=== PATIENT | female | born 1960 | race Caucasian/White ===

== ENCOUNTER 2019-10-12 08:45 | Emergency (ER) | payer BC, SELFPAY ==
[2019-10-12 08:47] VITALS: BP 137/81; PULSE 101; RESP 20; TEMP 36.4; O2SAT 97; BMI 32.8
--- NOTE | 2019-10-12 09:19 | EKG12_ITS ---
Test Reason : SOB Blood Pressure : / mmHG Vent. Rate : 091 BPM Atrial Rate : 091 BPM P-R Int : 148 ms QRS Dur : 094 ms QT Int : 412 ms P-R-T Axes : 067 -46 112 degrees QTc Int : 506 ms Normal sinus rhythm Left anterior fascicular block Nonspecific T wave abnormality Abnormal ECG Confirmed by DEB MANCUSO, ARNOLD ([id number]), assistant editor MELISSA CONNELL ([id number]) on 10/17/2019 8:52:55 AM Referred By: CHLOE Confirmed By:ARNOLD BOYD MD
--- NOTE | 2019-10-12 09:20 | VDLE_ITS ---
Reason For Study: Pain RIGHT LEFT Acute superficial vein thrombosis is noted in CFV is compressible, spontaneous, competent, the GSV from junction to distal thigh. and demonstrates pulsatile venous flow. Extends into the deep system. Acute deep vein thrombosis is noted in the CFV and SFJ. Clot in moile with minimal flow noted. Pulsatile venous flow noted with the right CFV. FV is compressible, spontaneous, competent and demonstrates pulsatile venous flow. POP V is compressible, spontaneous, competent and demonstrates pulsatile venous flow. T/P Trunk is compressible. PTV is compressible. RT PerV is compressible. Procedure Exam performed portable in ED. A preliminary report was called and/or faxed to [facility]. Interpretation Summary Acute deep venous thrombosis right common femoral vein with mobility noted. Acute superficial thrombophlebitis right great saphenous vein from the distal thigh to the saphenofemoral junction extending into the common femoral vein. Pulsatile flow noted in the right common femoral vein suggesting possible proximal venous hypertension or obstruction Patent and compressible left common femoral vein however pulsatile venous flow also noted suggesting possible proximal venous hypertension or obstruction. Clinical correlation would be indicated Ordering Physician: Jony Mcnamara Referring Physician: James Lynne Performed By: Lorin Hawley RVT
[2019-10-12] MEDS: Ondansetron 4 MG/2 ML Vial IV (09:23)
[2019-10-12 09:35] LABS: Absolute Lymphocyte Count 3.03 X10^3/uL (0.83-4.51); Absolute Neutrophil Count 8.8 X10^3/uL (2.0-7.7); Basophil# 0.07 X10^3/uL; Basophil% 0.5 % (0-1); Eosinophil# 0.03 X10^3/uL; Eosinophils% 0.2 % (0-5); Hematocrit 47.5 % (37-47); Hemoglobin 15.5 g/dL (12.0-15.0); Lymphocyte # 3.03 X10^3/ul (4.0); Mean Corp Hgb Conc 32.6 g/dL (32-36); Mean Corpuscular Hgb 29.5 pg (27.0-32.0); Mean Corpuscular Volume 90.5 fL (81-99); Mean Platelet Vol. 12.7 fl (6.2-12.0); Monocyte# 1.14 X10^3/uL; Monocyte% 8.7 % (0-10); NRBC Flagged by Analyzer 0 % (0-5); Neutrophil # 8.82 X10^3/uL (2.7-7.7); Platelet Count 239 K/mm3 (150-450); RBC Distribution Width CV 13.3 % (11.6-14.6); RBC Distribution Width SD 43.3 fl (35.1-43.9); Red Blood Count 5.25 M/mm3 (4.2-5.4); White Blood Count 13.2 K/mm3 (4.4-11.0)
--- NOTE | 2019-10-12 09:52 | ED.DCSUM_ITS ---
- ER Visit Summary Date of Service: 10/12/19 Chief Complaint: Shortness of breath History of Present Illness: The patient is a 59 F who presents with shortness of breath that is been getting worse over the past 1 to 2 months. Patient states it is gradually gotten worse. Patient states she saw her primary care physician who diagnosed her with walking pneumonia and started her on antibiotics. Patient states she is still taking the antibiotics but does not feel any better. Patient admits to subjective fevers. Patient admits to some pain in her chest and back. Patient denies any cough. Patient denies any rhinorrhea or sore throat. Patient does admit to some nausea and vomiting. Physical Examination: Vital signs are stable. Patient is afebrile. Patient is in no acute distress. Oral mucosa is pink and moist. Neck is supple. Trachea is midline. There is no JVD. Heart was regular rate and rhythm. Lungs are diminished bilaterally. There is adequate respiratory effort. Abdomen is soft. Bowel sounds are normal. There is no tenderness. Extremities are intact. There is some mild tenderness and erythema over the medial aspect of the right thigh. There are no palpable cords noted. Pedal pulses are equal bilaterally. Cranial nerves II through XII are intact. There are no focal motor or sensory deficits. Test Results: EKG showed a normal sinus rhythm with a rate of 91. There are no acute ST or T wave changes. There is a left anterior fascicular block. There are no prior EKGs available for comparison. CBC shows a mild leukocytosis of 13.2. BUN and creatinine were slightly elevated at 23 and 1.15. Troponin was slightly elevated at 0.056. This may be related to strain from the pulmonary embolism. Venous duplex of the right lower extremity was obtained. There is a DVT noted in the common femoral vein and superficial femoral junction. CTA of the chest was obtained. There is a minimal pulmonary embolus in the right lower lobe pulmonary artery. There is also groundglass opacities in the posterior lung bases bilaterally which are concerning for COVID-19. A COVID-19 swab is pending. Emergency Department Course and Treatment: Patient was given aspirin and Zofran. Patient was started on Eliquis here. Patient was given a prescription for Eliquis. Patient had normal vital signs and was not hypoxic. I feel the patient is safe to go home. Patient was instructed to follow-up with her primary care physician in 3-5 days for her COVID results. Patient was instructed to isolate herself at home. She was instructed to finish her antibiotics as previously prescribed. Patient was instructed to return if worse in any way. Patient understood and was agreeable with the plan. All questions were answered. Disposition: Discharge home Impression: 1. Pulmonary embolism 2. DVT 3. Pneumonia This note was generated with [employer] dictation software. It may contain incorrect words, spelling, and punctuation that were not noted in review of the chart prior to signing ED Disposition - Plan for ED Patient: Disposition: Home or Assisted Living Diagnosis: Pulmonary embolism, DVT (deep venous thrombosis), Pneumonia Instructions: Pulmonary Embolism, ED DVT, ED PNEUMONITIS Adult Prescriptions: Apixaban [Eliquis] 5 mg PO BID #74 tab Prescription Printed Referrals: Davina Meredith MD [STAFF PHYSICIAN] - 3-5 Days
[2019-10-12 09:54] LABS: Anion Gap 11 (5-15); BUN 23 mg/dL (7-18); Calcium,Total 8.7 mg/dL (8.5-10.1); Chloride 105 mmol/L (98-107); Creatinine, Serum 1.15 mg/dL (0.55-1.02); EST Glomerular Filtration Rate 51 mL/min (>60); Est Glom Filt Rate - Afr Amer 62 mL/min (>60); Estimated Creatinine Clearance 43.57 ml/min; Glucose 96 mg/dL (74-106); Potassium 3.9 mmol/L (3.5-5.1); Sodium Level 136 mmol/L (136-145)
[2019-10-12] MEDS: Aspirin 81 MG TAB.CHEW 324 MG PO (09:54)
[2019-10-12 09:58] VITALS: O2SAT 97
[2019-10-12 10:00] VITALS: BP 127/96; PULSE 93; RESP 16; TEMP 36.6; O2SAT 97
--- NOTE | 2019-10-12 10:00 | RAD_ITS ---
STUDY: X-RAY CHEST REASON FOR EXAM: Female, 59 years old. Diagnosed with walking pneumonia and on antibiotics since sun day. Continues to have shortness of breath and now has headache and feels very weak TECHNIQUE: Single AP portable view of the chest. COMPARISON: None. FINDINGS: EKG electrodes are seen. The lungs are clear and expanded. There is no demonstrated pleural abnormality. There is moderate cardiac enlargement. Normal mediastinum and helene. Normal visualized pulmonary arteries. Normal visualized aortic arch and descending thoracic aorta. Normal visualized thoracic spine. Normal visualized ribs, clavicles, and shoulders. There is no demonstrated abnormality of the visualized soft tissue structures of the upper abdomen. RAD/Chest 1 View (Portable) IMPRESSION: Moderate cardiomegaly. Electronically Signed: Daniel Luz, at 10:36 EDT , Service support ,
--- NOTE | 2019-10-12 10:55 | CT_ITS ---
We are attempting to reach an attending provider to discuss findings. An addendum with communication details will be sent when the communication is complete. STUDY: CTA CHEST REASON FOR EXAM: Female, 59 years old. DYSPNEA, DX WITH PNEUMONIA ON WEDNESDAY, SOB, WEAKNESS RADIATION DOSAGE (If Supplied By Facility): CTDIvol = ( 15.43 ) mGy, DLP = ( 364.52 ) mGycm TECHNIQUE: The examination was performed with the intravenous administration of 100 mL of ISOVUE-370. Post-processing of the angiographic images was performed, with multiplanar reformation and MIP (maximum intensity projection) reconstruction. Individualized dose optimization techniques were used for this CT. COMPARISON: None. FINDINGS: Normal enhancement of the main pulmonary artery and right and left pulmonary arteries. Positive for intraluminal filling defect in the right lower lobe pulmonary artery. No other suspicious pulmonary emboli. Normal thoracic aorta and visualized great vessels. There is no demonstrated aortic dissection. Normal heart and pericardium. Normal mediastinum. Normal hilar regions. Normal visualized trachea and bronchi. The lungs are well expanded. Abnormal peripheral groundglass opacities in the posterior aspect of the lung bases are suspicious for viral pneumonia. Mild to moderate bilateral posterior pleural fluid, right more than left. Normal chest wall structures. No acute osseous abnormality. Normal visualized upper abdomen. CT/CTA Chest W/WO Contrast IMPRESSION: 1. Positive for minimal pulmonary thromboembolus in the right lower lobe pulmonary artery. 2. No CTA evidence of thoracic aortic aneurysm or dissection. 3. Abnormal peripheral groundglass opacities in the posterior lung bases are nonspecific but are worrisome for viral pneumonia including Covid-19. 4. Mild to moderate bilateral posterior pleural fluid, right more than left. Electronically Signed: Shon Valadez MD at 12:07 EDT , Service support ,
[2019-10-12] MEDS: 0.9% Normal Saline 1,000 ML 1000 ML IV (11:20)
[2019-10-12 11:24] VITALS: BP 123/91; PULSE 91; RESP 18; TEMP 36.4; O2SAT 95
[2019-10-12] MEDS: APIXABAN 5 MG TABLET 10 MG PO (13:04)
[2019-10-12 13:05] VITALS: BP 121/93; PULSE 100; PULSE 101; RESP 18; RESP 19; RESP 20; TEMP 36.5; O2SAT 96; O2SAT 97
== END 2019-10-12 13:16 | disposition home or self-care (01) ==
PROVIDERS: Emergency Provider Emergency Medicine
DX: I26.99 Other pulmonary embolism without acute cor pulmonale (principal); I82.409 Acute embolism and thrombosis of unspecified deep veins of unspecified lower extremity; J18.9 Pneumonia, unspecified organism
CPT/HCPCS: 71045; 71275; 80048; 84484; 85025; 87635; 93005; 93971; 94799; 96374; 99285; J7030; Q9967; J2405; U0003

== ENCOUNTER → 2019-10-18 14:28 | Outpatient (CLI) | payer BC, SELFPAY ==
[2019-10-12 08:47] VITALS: BMI 32.8
[2019-10-18 17:39] LABS: Absolute Lymphocyte Count 2.17 X10^3/uL (0.83-4.51); Absolute Neutrophil Count 7.9 X10^3/uL (2.0-7.7); Basophil# 0.07 X10^3/uL; Basophil% 0.6 % (0-1); Eosinophil# 0.09 X10^3/uL; Eosinophils% 0.8 % (0-5); Hematocrit 44.7 % (37-47); Hemoglobin 13.9 g/dL (12.0-15.0); Lymphocyte # 2.17 X10^3/ul (4.0); Mean Corp Hgb Conc 31.1 g/dL (32-36); Mean Corpuscular Hgb 29.4 pg (27.0-32.0); Mean Corpuscular Volume 94.7 fL (81-99); Mean Platelet Vol. 13.6 fl (6.2-12.0); Monocyte# 1.19 X10^3/uL; Monocyte% 10.4 % (0-10); NRBC Flagged by Analyzer 0 % (0-5); Neutrophil % 68.9 % (47-70); Platelet Count 202 K/mm3 (150-450); RBC Distribution Width CV 14.2 % (11.6-14.6); RBC Distribution Width SD 48.6 fl (35.1-43.9); Red Blood Count 4.72 M/mm3 (4.2-5.4); White Blood Count 11.5 K/mm3 (4.4-11.0)
[2019-10-18 18:33] LABS: ALB/GLOB Ratio 0.9 RATIO (0.9-2.4); AST(SGOT) 31 U/L (15-37); Alanine Aminotransfer ALT/SGPT 62 U/L (13-56); Alkaline Phosphatase 74 U/L (45-117); Anion Gap 9 (5-15); BUN 25 mg/dL (7-18); BUN/Creat Ratio 26.8 RATIO (10-20); Calcium,Total 8.5 mg/dL (8.5-10.1); Chloride 107 mmol/L (98-107); Creatinine, Serum 0.93 mg/dL (0.55-1.02); EST Glomerular Filtration Rate 65 mL/min (>60); Est Glom Filt Rate - Afr Amer 79 mL/min (>60); Globulin 3.2 g/dL (2.2-4.2); Glucose 125 mg/dL (74-106); Protein, Total 6.2 g/dL (6.4-8.2); Sodium Level 142 mmol/L (136-145)
== END ==
PROVIDERS: PCP Family Medicine; Referring Provider Family Medicine; Visit Provider Family Medicine
DX: I50.9 Heart failure, unspecified (principal); R93.89 Abnormal findings on diagnostic imaging of other specified body structures; I42.9 Cardiomyopathy, unspecified
CPT/HCPCS: 36415; 80053; 85025; 87635; U0003

== ENCOUNTER → 2019-10-19 14:40 | Outpatient (CLI) | payer BC, SELFPAY ==
[2019-10-12 08:47] VITALS: BMI 32.8
--- NOTE | 2019-10-19 14:47 | ECHOD_ITS ---
Reason For Study: CHF Procedure This was a 2D Doppler, Color Flow transthoracic echocardiogram. Exam performed in department. Spoke with Dr. Garcia & Dr. Daniels of ED. Took patient to ED due to her symptoms and EF. Left Ventricle Severely dilated left ventricle. Severe global left ventricular systolic dysfunction. The estimated ejection fraction is 10 %. There is evidence of diastolic dysfunction. Right Ventricle Mildly dilated right ventricle. Mild global right ventricular systolic dysfunction. Atria The left atrium is mildly enlarged. The right atrium is mildly enlarged. No doppler evidence for ASD. Mitral Valve There is no mitral annular calcification. Mild diffuse mitral valve thickening. Mild papillary muscle dysfunction of the mitral valve. Moderate (2+) mitral valve insufficiency. Tricuspid Valve Normal tricuspid valve. Moderately severe (3+) tricuspid valve insufficiency. Right ventricular systolic pressure estimated to be 35 mmHg. Aortic Valve Trisinus/trileaflet aortic valve. Mild diffuse aortic valve thickening. Trivial aortic valve insufficiency. Pulmonic Valve The pulmonic valve is not well visualized. Mild-Moderate (1-2+) pulmonic valve insufficiency. Great Vessels Normal sized aortic root. Pericardium/Pleural Trivial pericardial effusion. There are no echocardiographic indications of cardiac tamponade. MMode/2D Measurements & Calculations LVIDd: 6.7 cm IVSd: 0.98 cm Ao root diam: 2.8 cm LVIDs: 6.4 cm LVPWd: 0.86 cm RVDd: 4.4 cm FS: 4.5 % LAV(MOD-bp): 80.5 ml LA A4 area: 22.9 cm2 LA dimension(2D): 4.4 cm LAV(MOD-bp) Indexed: 44.6 ml/m2 LAV(MOD-sp2): 73.3 ml LAV(MOD-sp4): 75.6 ml RA A4 area: 23.9 cm2 Doppler Measurements & Calculations MV E max mario: 75.5 cm/sec Lat Peak E' Mario: 5.1 cm/sec Med Peak E' Mario: 5.2 cm/sec MV A max mario: 28.0 cm/sec E/E' lat: 14.9 E/E' med: 14.5 MV E/A: 2.7 Ao V2 max: 51.1 cm/sec LV V1 max: 41.8 cm/sec PA V2 max: 52.0 cm/sec Ao max P.0 mmHg LV V1 max P.70 mmHg TR max mario: 261.6 cm/sec TR max P.4 mmHg Interpretation Summary Severely dilated left ventricle. Severe global left ventricular systolic dysfunction. The estimated ejection fraction is 10 %. Mildly dilated right ventricle. Mild global right ventricular systolic dysfunction. The left atrium is mildly enlarged. The right atrium is mildly enlarged. Mild diffuse mitral valve thickening. Mild papillary muscle dysfunction of the mitral valve. Moderate (2+) mitral valve insufficiency. Moderately severe (3+) tricuspid valve insufficiency. Mild diffuse aortic valve thickening. Trivial aortic valve insufficiency. Mild-Moderate (1-2+) pulmonic valve insufficiency. Trivial pericardial effusion. There are no echocardiographic indications of cardiac tamponade. Right ventricular systolic pressure estimated to be 35 mmHg. There is evidence of diastolic dysfunction. Ordering Physician: Davina Meredith Referring Physician: Davina Meredith Performed By: Brittanie Oliver RDCS, RVT
== END ==
PROVIDERS: PCP Family Medicine; Referring Provider Family Medicine; Visit Provider Family Medicine
DX: I50.9 Heart failure, unspecified (principal); R93.89 Abnormal findings on diagnostic imaging of other specified body structures
CPT/HCPCS: 93306

== ENCOUNTER 2019-10-19 16:19 | Emergency (ER) | payer BC, SELFPAY ==
[2019-10-19 16:21] VITALS: BP 132/93; PULSE 96; RESP 20; TEMP 36.9; O2SAT 96; BMI 30.4
--- NOTE | 2019-10-19 16:39 | EKG12_ITS ---
Test Reason : Blood Pressure : / mmHG Vent. Rate : 091 BPM Atrial Rate : 091 BPM P-R Int : 162 ms QRS Dur : 096 ms QT Int : 396 ms P-R-T Axes : 076 -46 124 degrees QTc Int : 487 ms Normal sinus rhythm Possible Left atrial enlargement Left anterior fascicular block Nonspecific T wave abnormality Prolonged QT Abnormal ECG Confirmed by LEYLA MANCUSO, GABY ([id number]), non linear editor MELISSA CONNELL ([id number]) on 10/23/2019 9:38:18 AM Referred By: LISA Confirmed By:FELICITA MAYER MD
--- NOTE | 2019-10-19 16:39 | ED.DCSUM_ITS ---
History of Present Illness Chief Complaint: Shortness of Breath Informant: Patient Onset: Weeks Current Severity: Mild Maximum Severity: Moderate Narrative: Patient presents secondary to abnormal echocardiogram. Patient was recently seen with increasing shortness of breath, cough, fevers. She had infiltrate pattern noted on chest x-ray along with a DVT and small PE. Her Covid test was negative. She was started on Eliquis. Patient states that her family doctor started her on a water pill yesterday. She is starting to notice some improvement in her breathing with diuresis. She presented to the hospital today for an outpatient echocardiogram and was brought down from the lab secondary to abnormal results. - Past Medical History (1) DVT (deep venous thrombosis) Status: Chronic (2) Pulmonary embolism Status: Chronic Past Medical History - Allergies and Home Meds Allergies/Adverse Reactions: Allergies No Known Allergies Allergy (Verified 10/19/19 16:23) Primary Care Physician: Davina Meredith MD [Primary Care Provider] - Prior records reviewed: Yes Lives: Spouse/ Significant Other Smoking Status: Never smoker Review of Systems General: Reports: Fever - Resolved times several days Eyes: Denies: Visual changes - bilaterally ENT: Denies: Bilateral ear pain Cardiovascular: Denies: Chest pain Respiratory: Reports: Dyspnea, Cough - Improved Gastrointestinal: Denies: Abdominal pain, Nausea, Vomiting, Diarrhea Musculoskeletal: Reports: Swelling Skin: Denies: Rash Neurological: Denies: Headache Hematologic: Denies: Easy bruising, Easy bleeding Allergy: Denies: Uticaria Physical Exam Vital Signs/Narrative: Vital Signs Temp Pulse Resp BP Pulse Ox 10/19/19 16:21 98.4 F 96 20 H 132/93 H 96 Inital Vital Signs reviewed: Yes General: Well nourished, Well developed Head: Normocephalic ENT: Moist mucous membranes Neck: Supple Cardiovascular: Regular rate, Regular rhythm Respiratory: No distress, - - Scant crackles left base Abdomen: Soft, Nontender Extremities: Edema - 2-3+ bilateral lower extremity edema. Skin: Normal color Neurological: Alert, Oriented x3 Psychological: Normal affect Diagnostic/Tx/Re-eval Impressions Chest X-Ray 10/19/19 17:40 IMPRESSION: Stable cardiomegaly without acute pulmonary disease. Electronically Signed: Jason Yusuf DO at 18:06 EDT Tel [phone], Service support , 10/19/19 17:40 Chest 1 View (Portable) [RAD] Stat Laboratory Results 10/19/19 10/19/19 10/19/19 16:54 16:54 16:54 WBC 11.4 H RBC 4.89 Hgb 14.3 Hct 44.9 MCV 91.8 MCH 29.2 MCHC 31.8 L RDW Std Deviation 46.4 H RDW Coeff of Neri 13.9 Plt Count 195 MPV 13.0 H Immature Gran % (Auto) 0.400 Neut % (Auto) 61.4 Lymph % (Auto) 24.6 Rapides % (Auto) 11.7 H Eos % (Auto) 1.4 Baso % (Auto) 0.5 Absolute Neuts (auto) 7.0 Absolute Lymphs (auto) 2.79 Nucleated RBC % 0 Sodium 146 H Potassium 3.2 L Chloride 109 H Carbon Dioxide 31.0 Anion Gap 6 BUN 24 H Creatinine 1.04 H Estim Creat Clear Calc 48.18 Est GFR (MDRD) Af Amer 70 Est GFR (MDRD) Non-Af 58 L BUN/Creatinine Ratio 23.1 H Glucose 96 Calcium 8.4 L Troponin I 0.057 H B-Natriuretic Peptide 1707.1 H - Medical Decision Making Patient's vitals remained stable during her ED stay. I spoke with Dr. Hays who reviewed her echocardiogram images. He states that she has moderate MR and TR with a trivial pericardial effusion. He states her ejection fraction would be at best 10%. On review of her recent records the DVT she had in her leg was mobile and in the right common femoral vein. With the entire picture put together he felt the patient should be transferred to either [facility] or [facility]. After speaking with patient and at bedside she did agree to transfer to [facility]. We are awaiting bed assignment at this time. ED Disposition - Plan for ED Patient: Disposition: [facility] Diagnosis: Heart failure Referrals: Davina Meredith MD [Primary Care Provider] -
[2019-10-19 17:01] VITALS: O2SAT 96
[2019-10-19 17:21] LABS: Anion Gap 6 (5-15); BUN 24 mg/dL (7-18); BUN/Creat Ratio 23.1 RATIO (10-20); Calcium,Total 8.4 mg/dL (8.5-10.1); Chloride 109 mmol/L (98-107); Creatinine, Serum 1.04 mg/dL (0.55-1.02); EST Glomerular Filtration Rate 58 mL/min (>60); Est Glom Filt Rate - Afr Amer 70 mL/min (>60); Estimated Creatinine Clearance 48.18 ml/min; Glucose 96 mg/dL (74-106); Potassium 3.2 mmol/L (3.5-5.1); Sodium Level 146 mmol/L (136-145)
[2019-10-19 17:27] LABS: Absolute Lymphocyte Count 2.79 X10^3/uL (0.83-4.51); Basophil# 0.06 X10^3/uL; Basophil% 0.5 % (0-1); Eosinophil# 0.16 X10^3/uL; Eosinophils% 1.4 % (0-5); Hematocrit 44.9 % (37-47); Hemoglobin 14.3 g/dL (12.0-15.0); Lymphocyte # 2.79 X10^3/ul (4.0); Lymphocyte % 24.6 % (19-41); Mean Corp Hgb Conc 31.8 g/dL (32-36); Mean Corpuscular Hgb 29.2 pg (27.0-32.0); Mean Corpuscular Volume 91.8 fL (81-99); Monocyte# 1.33 X10^3/uL; Monocyte% 11.7 % (0-10); NRBC Flagged by Analyzer 0 % (0-5); Neutrophil # 6.96 X10^3/uL (2.7-7.7); Neutrophil % 61.4 % (47-70); Platelet Count 195 K/mm3 (150-450); RBC Distribution Width CV 13.9 % (11.6-14.6); RBC Distribution Width SD 46.4 fl (35.1-43.9); Red Blood Count 4.89 M/mm3 (4.2-5.4); White Blood Count 11.4 K/mm3 (4.4-11.0)
--- NOTE | 2019-10-19 17:40 | RAD_ITS ---
STUDY: X-RAY CHEST REASON FOR EXAM: Female, 59 years old. Increased shortness of breath. Echocardiogram today that showed large pericardial effusion. TECHNIQUE: Single AP portable view of the chest. COMPARISON: CTA of the chest, 10/12/2019. Chest, 10/12/2019. FINDINGS: The lungs are clear and expanded. There is no demonstrated pleural abnormality. The heart is moderately enlarged but unchanged from prior study. No large pericardial effusion is seen on the recent chest CT. Normal mediastinum and helene. Normal visualized pulmonary arteries. Normal visualized aortic arch and descending thoracic aorta. The thoracic spine is obscured by the mediastinum. Normal visualized ribs, clavicles, and shoulders. There is no demonstrated abnormality of the visualized soft tissue structures of the upper abdomen. RAD/Chest 1 View (Portable) IMPRESSION: Stable cardiomegaly without acute pulmonary disease. Electronically Signed: Jason Yusuf DO at 18:06 EDT Tel [phone], Service support ,
[2019-10-19 18:19] VITALS: BP 118/83; PULSE 91; RESP 21; O2SAT 98
[2019-10-19 20:51] VITALS: BP 133/102; PULSE 93; RESP 18; O2SAT 96
[2019-10-19 22:59] VITALS: BP 108/90; PULSE 93; RESP 20; O2SAT 98
[2019-10-19 23:01] VITALS: BP 108/74; PULSE 95; RESP 15; O2SAT 95
[2019-10-20 00:37] VITALS: BP 114/87; PULSE 97; RESP 22; O2SAT 95
== END 2019-10-20 00:43 | disposition short-term general hospital (02) ==
PROVIDERS: Emergency Provider Emergency Medicine; PCP Family Medicine
DX: I50.9 Heart failure, unspecified (principal); Z86.711 Personal history of pulmonary embolism; Z79.01 Long term (current) use of anticoagulants; Z86.718 Personal history of other venous thrombosis and embolism
CPT/HCPCS: 71045; 80048; 83880; 84484; 85025; 93005; 99285; A4216

== ENCOUNTER → 2019-10-27 11:09 | Outpatient (CLI) | payer BC, SELFPAY ==
[2019-10-19 16:21] VITALS: BMI 30.4
[2019-10-27 13:09] LABS: Anion Gap 6 (5-15); BUN 27 mg/dL (7-18); BUN/Creat Ratio 21.8 RATIO (10-20); Calcium,Total 8.4 mg/dL (8.5-10.1); Chloride 103 mmol/L (98-107); Creatinine, Serum 1.24 mg/dL (0.55-1.02); EST Glomerular Filtration Rate 47 mL/min (>60); Est Glom Filt Rate - Afr Amer 57 mL/min (>60); Glucose 86 mg/dL (74-106); Potassium 4.3 mmol/L (3.5-5.1); Sodium Level 137 mmol/L (136-145)
== END ==
PROVIDERS: PCP Family Medicine; Referring Provider Family Medicine
DX: I50.9 Heart failure, unspecified (principal)
CPT/HCPCS: 36415; 80048

== ENCOUNTER → 2020-02-12 14:45 | Outpatient (CLI) | payer BC, SELFPAY ==
[2019-11-08 13:02] VITALS: BMI 30.2
--- NOTE | 2020-02-12 14:46 | ECHOD_ITS ---
Reason For Study: CHF Procedure This was a 2D Doppler, Color Flow transthoracic echocardiogram. Exam performed in department. Left Ventricle Normal LV size. The estimated ejection fraction is 25 %. There is severe global hypokinesis of the left ventricle. Right Ventricle Normal RV size. Normal systolic function. Atria Normal left atrium. Normal right atrium. Mitral Valve Normal mitral valve. Tricuspid Valve Normal tricuspid valve. Aortic Valve Normal aortic valve. Trisinus/trileaflet aortic valve. Pulmonic Valve Normal pulmonic valve. Great Vessels Normal aortic root. The pulmonary artery is normal size. Pericardium/Pleural No pericardial effusion. MMode/2D Measurements & Calculations LVIDd: 5.7 cm IVSd: 1.00 cm Ao root diam: 3.2 cm LVIDs: 4.9 cm LVPWd: 1.00 cm LA dimension: 3.8 cm RVDd: 3.3 cm FS: 14.8 % LAV(MOD-bp): 43.6 ml LVAd ap4: 35.5 cm2 SV(MOD-sp4): 40.8 ml LAV(MOD-bp) Indexed: 24.4 ml/m2 EDV(MOD-sp4): 123.0 ml LAV(MOD-sp2): 34.6 ml EDV(sp4-el): 126.6 ml LAV(MOD-sp4): 49.5 ml LVAs ap4: 27.7 cm2 ESV(MOD-sp4): 82.3 ml ESV(sp4-el): 85.1 ml EF(MOD-sp4): 33.1 % EF(sp4-el): 32.7 % SV(sp4-el): 41.4 ml LA A4 area: 17.1 cm2 RA A4 area: 11.9 cm2 Time Measurements MV dec time: 0.21 sec Doppler Measurements & Calculations MV E max mario: 54.0 cm/sec Lat Peak E' Mario: 4.4 cm/sec Med Peak E' Mario: 6.7 cm/sec MV A max mario: 75.9 cm/sec E/E' lat: 12.3 E/E' med: 8.0 MV E/A: 0.71 MV V2 max: 76.0 cm/sec MV P1/2t max mario: 52.8 cm/sec Ao V2 max: 109.5 cm/sec MV max P.3 mmHg MV P1/2t: 83.2 msec Ao max P.8 mmHg MV V2 mean: 37.9 cm/sec MV mean P.69 mmHg MV dec slope: 186.0 cm/sec2 MV V2 VTI: 17.4 cm MVA(P1/2t): 2.6 cm2 LV V1 max: 89.5 cm/sec PA V2 max: 108.8 cm/sec TR max mario: 277.7 cm/sec LV V1 max P.2 mmHg TR max P.8 mmHg Interpretation Summary Normal LV size. The estimated ejection fraction is 25 %. There is severe global hypokinesis of the left ventricle. Compared to previous study, the left ventricular systolic function has improved.. Ordering Physician: Esteban Salgado Referring Physician: Davina Meredith M.D. Performed By: Edgar Seo RCS
== END ==
PROVIDERS: PCP Family Medicine; Referring Provider Internal Medicine Cardiovascular Disease; Visit Provider Internal Medicine Cardiovascular Disease
DX: I42.8 Other cardiomyopathies (principal); I50.22 Chronic systolic (congestive) heart failure
CPT/HCPCS: 93306

== ENCOUNTER → 2020-03-12 12:18 | Outpatient (CLI) | payer BC, SELFPAY ==
[2020-02-16 13:07] VITALS: BMI 28.9
[2020-03-12 15:04] LABS: Absolute Neutrophil Count 3.9 X10^3/uL (2.0-7.7); Basophil# 0.04 X10^3/uL; Basophil% 0.6 % (0-1); Eosinophil# 0.13 X10^3/uL; Hematocrit 44.2 % (37-47); Hemoglobin 13.7 g/dL (12.0-15.0); Lymphocyte % 29.3 % (19-41); Mean Corpuscular Hgb 29.7 pg (27.0-32.0); Mean Corpuscular Volume 95.7 fL (81-99); Mean Platelet Vol. 12.2 fl (6.2-12.0); Monocyte# 0.49 X10^3/uL; Monocyte% 7.6 % (0-10); NRBC Flagged by Analyzer 0 % (0-5); Platelet Count 213 K/mm3 (150-450); RBC Distribution Width CV 13.1 % (11.6-14.6); RBC Distribution Width SD 45.7 fl (35.1-43.9); Red Blood Count 4.62 M/mm3 (4.2-5.4); White Blood Count 6.5 K/mm3 (4.4-11.0)
[2020-03-12 15:18] LABS: ALB/GLOB Ratio 1.1 RATIO (0.9-2.4); AST(SGOT) 17 U/L (15-37); Alanine Aminotransfer ALT/SGPT 31 U/L (13-56); Albumin, Serum 3.9 g/dL (3.2-5.0); Alkaline Phosphatase 74 U/L (45-117); Anion Gap 5 (5-15); BUN 19 mg/dL (7-18); BUN/Creat Ratio 19.4 RATIO (10-20); Calcium,Total 8.7 mg/dL (8.5-10.1); Chloride 105 mmol/L (98-107); Creatinine, Serum 0.98 mg/dL (0.55-1.02); EST Glomerular Filtration Rate 62 mL/min (>60); Est Glom Filt Rate - Afr Amer 75 mL/min (>60); Globulin 3.7 g/dL (2.2-4.2); Glucose 90 mg/dL (74-106); Potassium 3.9 mmol/L (3.5-5.1); Protein, Total 7.6 g/dL (6.4-8.2); Sodium Level 140 mmol/L (136-145)
== END ==
PROVIDERS: PCP Family Medicine; Visit Provider Family Medicine
DX: I50.9 Heart failure, unspecified (principal)
CPT/HCPCS: 80053; 85025

== ENCOUNTER → 2020-04-26 14:40 | Outpatient (CLI) | payer BC, SELFPAY ==
[2020-02-16 13:07] VITALS: BMI 28.9
--- NOTE | 2020-04-26 14:48 | ECHOCS_ITS ---
Reason For Study: Dyspnea/SOB Procedure This was a 2D Doppler, Color Flow transthoracic echocardiogram. Contrast injection was performed. Exam performed in department. Left Ventricle Normal LV size. The estimated ejection fraction is 37 %. Stage 1 diastolic dysfunction. Right Ventricle Normal RV size. Normal systolic function. Atria Normal left atrium. Normal right atrium. Bubble contrast study negative for right to left interatrial shunt. Mitral Valve Normal mitral valve. Trivial mitral valve insufficiency. Tricuspid Valve Normal tricuspid valve. Mild (1+) tricuspid valve insufficiency. Pulmonary artery systolic pressure is 35 mmHg. Aortic Valve Normal aortic valve. Trisinus/trileaflet aortic valve. Pulmonic Valve Normal pulmonic valve. Great Vessels Normal aortic root. The pulmonary artery is normal size. Normal inferior vena cava. Pericardium/Pleural No pericardial effusion. Medication Performed a rapid injection of agitated mix of 9 cc saline and 1cc air to assess for atrial septal defect. Diluted definity 4ml given slow IV push to enhance endocardial definition. MMode/2D Measurements & Calculations LVIDd: 5.7 cm IVSd: 0.73 cm Ao root diam: 2.9 cm LVIDs: 4.7 cm LVPWd: 0.63 cm RVDd: 3.8 cm FS: 16.7 % LAV(MOD-bp): 37.6 ml LVAd ap4: 35.4 cm2 SV(MOD-sp4): 50.0 ml LAV(MOD-bp) Indexed: 21.0 ml/m2 EDV(MOD-sp4): 141.7 ml LAV(MOD-sp2): 33.0 ml EDV(sp4-el): 148.9 ml LAV(MOD-sp4): 38.9 ml LVAs ap4: 26.5 cm2 ESV(MOD-sp4): 91.7 ml ESV(sp4-el): 94.4 ml EF(MOD-sp4): 35.3 % EF(sp4-el): 36.6 % SV(sp4-el): 54.5 ml LA A4 area: 13.7 cm2 LA dimension(2D): 3.7 cm RA A4 area: 13.0 cm2 Doppler Measurements & Calculations MV E max mario: 52.5 cm/sec Lat Peak E' Mario: 2.8 cm/sec Med Peak E' Mario: 4.4 cm/sec MV A max mario: 71.7 cm/sec E/E' lat: 18.9 E/E' med: 12.0 MV E/A: 0.73 Ao V2 max: 108.7 cm/sec LV V1 max: 73.2 cm/sec PA V2 max: 104.0 cm/sec Ao max P.7 mmHg LV V1 max P.1 mmHg Ao V2 mean: 80.0 cm/sec Ao mean P.7 mmHg Ao V2 VTI: 21.9 cm PI end-d mario: 116.5 cm/sec TR max mario: 284.1 cm/sec TR max P.3 mmHg Interpretation Summary Normal LV size. The estimated ejection fraction is 37 %. Stage 1 diastolic dysfunction. Pulmonary artery systolic pressure is 35 mmHg. Contrast injection was performed. Compared to previous study, the left ventricular systolic function has improved.. Ordering Physician: Esteban Salgado Referring Physician: Davina Meredith Performed By: Anna Mccracken, ADRIANNA, RVT
== END ==
PROVIDERS: PCP Family Medicine; Referring Provider Internal Medicine Cardiovascular Disease; Visit Provider Internal Medicine Cardiovascular Disease
DX: I50.22 Chronic systolic (congestive) heart failure (principal); I42.8 Other cardiomyopathies; R06.00 Dyspnea, unspecified; R06.02 Shortness of breath
CPT/HCPCS: 93306; Q9957; A4216; C8929

== ENCOUNTER → 2020-07-10 16:23 | Outpatient (CLI) | payer BC, SELFPAY ==
[2020-05-22 16:15] VITALS: BMI 29.5
[2020-07-10 18:03] LABS: Absolute Neutrophil Count 3.3 X10^3/uL (2.0-7.7); Basophil# 0.04 X10^3/uL; Basophil% 0.7 % (0-1); Eosinophil# 0.15 X10^3/uL; Eosinophils% 2.4 % (0-5); Hematocrit 42.7 % (37-47); Hemoglobin 13.1 g/dL (12.0-15.0); Lymphocyte % 32.5 % (19-41); Mean Corp Hgb Conc 30.7 g/dL (32-36); Mean Corpuscular Hgb 29.1 pg (27.0-32.0); Mean Corpuscular Volume 94.9 fL (81-99); Mean Platelet Vol. 12.1 fl (6.2-12.0); Monocyte# 0.61 X10^3/uL; Monocyte% 9.9 % (0-10); NRBC Flagged by Analyzer 0 % (0-5); Neutrophil # 3.33 X10^3/uL (2.7-7.7); Neutrophil % 54.2 % (47-70); Platelet Count 192 K/mm3 (150-450); RBC Distribution Width CV 12.7 % (11.6-14.6); RBC Distribution Width SD 44.7 fl (35.1-43.9); White Blood Count 6.2 K/mm3 (4.4-11.0)
[2020-07-10 18:29] LABS: BUN 18 mg/dL (7-18); Creatinine, Serum 0.87 mg/dL (0.55-1.02); Glucose 82 mg/dL (74-106)
[2020-07-10 18:30] LABS: ALB/GLOB Ratio 1.1 RATIO (0.9-2.4); AST(SGOT) 13 U/L (15-37); Alanine Aminotransfer ALT/SGPT 25 U/L (13-56); Albumin, Serum 3.8 g/dL (3.2-5.0); Alkaline Phosphatase 76 U/L (45-117); Anion Gap 4 (5-15); BUN/Creat Ratio 20.7 RATIO (10-20); Chloride 106 mmol/L (98-107); EST Glomerular Filtration Rate 71 mL/min (>60); Est Glom Filt Rate - Afr Amer 85 mL/min (>60); Globulin 3.6 g/dL (2.2-4.2); Potassium 4.1 mmol/L (3.5-5.1); Protein, Total 7.4 g/dL (6.4-8.2); Sodium Level 140 mmol/L (136-145); Thyroid Stim Hormone (TSH) 2.76 uIU/mL (0.358-3.74)
== END ==
PROVIDERS: PCP Family Medicine; Referring Provider Family Medicine; Visit Provider Family Medicine
DX: I50.9 Heart failure, unspecified (principal)
CPT/HCPCS: 36415; 80053; 84443; 85025

== ENCOUNTER → 2020-09-27 13:41 | Outpatient (CLI) | payer BC, SELFPAY ==
[2020-05-22 16:15] VITALS: BMI 29.5
[2020-09-17 16:00] VITALS: BMI 29.9
--- NOTE | 2020-09-27 14:00 | ECHOD_ITS ---
Procedure This was a 2D Doppler, Color Flow transthoracic echocardiogram. Exam performed in department. Left Ventricle Normal LV size. The estimated ejection fraction is 45 %. Stage 1 diastolic dysfunction. There is mild global hypokinesis of the left ventricle. Right Ventricle Normal RV size. Normal systolic function. Atria Normal left atrium. Normal right atrium. Mitral Valve Normal mitral valve. Tricuspid Valve Normal tricuspid valve. Mild tricuspid valve insufficiency. Aortic Valve Normal aortic valve. Trisinus/trileaflet aortic valve. Pulmonic Valve The pulmonic valve is not well visualized. Great Vessels Normal aortic root. Pericardium/Pleural No pericardial effusion. MMode/2D Measurements & Calculations LVIDd: 5.7 cm IVSd: 0.98 cm Ao root diam: 2.9 cm LVIDs: 4.4 cm LVPWd: 1.0 cm RVDd: 2.8 cm FS: 23.3 % LAV(MOD-bp): 28.4 ml LVAd ap4: 35.9 cm2 LVAd ap2: 31.3 cm2 LAV(MOD-bp) Indexed: 15.9 ml/m2 LVLd ap4: 8.1 cm LVLd ap2: 6.9 cm LAV(MOD-sp2): 29.9 ml EDV(MOD-sp4): 131.4 ml EDV(MOD-sp2): 119.9 ml LAV(MOD-sp4): 26.4 ml EDV(sp4-el): 135.7 ml EDV(sp2-el): 119.9 ml LVAs ap4: 26.2 cm2 LVAs ap2: 21.7 cm2 LVLs ap4: 6.9 cm LVLs ap2: 5.9 cm ESV(MOD-sp4): 82.5 ml ESV(MOD-sp2): 68.9 ml ESV(sp4-el): 84.3 ml ESV(sp2-el): 67.7 ml EF(MOD-sp4): 37.2 % EF(MOD-sp2): 42.5 % EF(sp4-el): 37.9 % SV(MOD-sp4): 48.9 ml SV(MOD-sp2): 50.9 ml SV(sp4-el): 51.4 ml LA dimension(2D): 3.7 cm LA A4 area: 11.4 cm2 RA A4 area: 12.6 cm2 Doppler Measurements & Calculations MV E max mario: 45.5 cm/sec Lat Peak E' Mario: 5.0 cm/sec Med Peak E' Mario: 6.1 cm/sec MV A max mario: 63.1 cm/sec E/E' lat: 9.2 E/E' med: 7.5 MV E/A: 0.72 Ao V2 max: 94.0 cm/sec LV V1 max: 62.5 cm/sec PA V2 max: 92.2 cm/sec Ao max P.5 mmHg LV V1 max P.6 mmHg PI dec slope: 115.0 cm/sec2 TR max mario: 246.4 cm/sec TR max P.3 mmHg ECHO/Echo Complete Interpretation Summary Normal LV size. The estimated ejection fraction is 45 %. There is mild global hypokinesis of the left ventricle. Mild tricuspid valve insufficiency. Stage 1 diastolic dysfunction. Compared to previous study, the left ventricular systolic function has improved .. Ordering Physician: Esteban Salgado Referring Physician: Davina Meredith Performed By: Brittanie Oliver, ADRIANNA, RVT
== END ==
PROVIDERS: PCP Family Medicine; Referring Provider Internal Medicine Cardiovascular Disease; Visit Provider Internal Medicine Cardiovascular Disease
DX: R06.00 Dyspnea, unspecified (principal); I42.8 Other cardiomyopathies; I50.22 Chronic systolic (congestive) heart failure; I26.99 Other pulmonary embolism without acute cor pulmonale
CPT/HCPCS: 93306

== ENCOUNTER → 2021-02-11 16:46 | Outpatient (CLI) | payer BC, SELFPAY ==
[2021-02-11 18:45] LABS: Anion Gap 6 (5-15); BUN 23 mg/dL (7-18); BUN/Creat Ratio 23.4 RATIO (10-20); Chloride 104 mmol/L (98-107); Creatinine, Serum 0.98 mg/dL (0.55-1.02); EST Glomerular Filtration Rate 61 mL/min (>60); Est Glom Filt Rate - Afr Amer 74 mL/min (>60); Glucose 79 mg/dL (74-106); Potassium 3.7 mmol/L (3.5-5.1); Sodium Level 139 mmol/L (136-145)
== END ==
PROVIDERS: PCP Family Medicine; Referring Provider Family Medicine; Visit Provider Family Medicine
DX: I50.9 Heart failure, unspecified (principal)
CPT/HCPCS: 36415; 80048

== ENCOUNTER 2021-02-16 12:10 | Emergency (ER) | payer BC, SELFPAY ==
[2021-02-16 12:11] VITALS: BP 88/62; PULSE 94; RESP 24; TEMP 36.3; O2SAT 100; BMI 29.2
--- NOTE | 2021-02-16 13:43 | EDS_ITS ---
HPI History of Present Illness Chief Complaint: Shortness of Breath Informant: patient Onset/Context/Timing Onset: Days Context: Gradual Onset Current Severity: Mild Maximum Severity: Mild Narrative Narrative: Patient presents secondary to congestion, sore throat, fever, shortness of breath. She states she initially got sick on Thanksgiving. She followed up with her PCP last week and they felt she likely had a sinus infection. She was started on amoxicillin. Patient presents today stating that she is not getting any better. She has not been tested for Covid. [facility] Medical History (Updated 02/16/21 @ 15:[address] Hue Rodriguez MD) Chronic systolic (congestive) heart failure Deep vein thrombosis of right lower limb (10/12/19) IBS (irritable bowel syndrome) Non-ischemic cardiomyopathy Obesity Pulmonary embolism (10/12/19) Right ventricular dilation Right ventricular systolic dysfunction Home Medications carvedilol 25 mg tablet 25 mg PO BID #180 tab 05/22/20 [Rx Last Taken Unknown] spironolactone 25 mg tablet 12.5 mg PO DAILY #45 tab 05/22/20 [Rx Last Taken Unknown] furosemide 40 mg tablet 40 mg PO BID #180 tab 09/30/20 [Rx Last Taken Unknown] nabumetone 750 mg tablet 750 mg PO BID #180 tab 10/09/20 [Rx Last Taken Unknown] dexamethasone [Decadron] 6 mg PO DAILY #9 tab 02/16/21 [Rx Last Taken Unknown] Allergy/AdvReac Type Severity Reaction Status Date / Time No Known Allergies Allergy Verified 02/16/21 12:11 Family History Grandmother Heart disease NICM Brother Heart disease NICM Father Heart disease PA/Heart Failure Surgical History History of left heart catheterization (10/20/19) Social History Smoking Status: Former smoker ROS ROS ED Constitutional Constitutional ED: Reports fever(s) Eyes Eyes: Denies change in vision ENT ENT ED: Reports sore throat and other Details: Congestion Cardiovascular Cardiovascular: Denies chest pain Respiratory/Chest Respiratory/Chest: Reports cough and dyspnea Gastrointestinal Gastrointestinal: Denies abdominal pain, diarrhea, nausea or vomiting Genitourinary Genitourinary ED: Denies dysuria Musculoskeletal Musculoskeletal: Reports myalgias; Denies back pain Integumentary Denies rash Neurologic Neurologic: Denies headache(s) or weakness Allergic/Immunologic Allergic/Immunologic ED: Denies urticaria EXAM Physical Exam Const Vital Signs: 02/16/21 12:11 02/16/21 14:00 02/16/21 15:00 Temperature 97.4 F L 97.4 F L 97.4 F L Temperature Source Temporal Temporal Temporal Pulse Rate 94 85 78 Respiratory Rate 24 H 20 H 18 Respiratory Effort Normal Non-Labored Respiratory Pattern Normal Blood Pressure 88/62 L 96/62 97/64 Blood Pressure Mean 70 73 75 Pulse Ox 100 100 99 Oxygen Delivery Method Room Air Room Air Room Air 02/16/21 16:07 Temperature Temperature Source Pulse Rate 76 Respiratory Rate 18 Respiratory Effort Respiratory Pattern Blood Pressure 104/74 Blood Pressure Mean Pulse Ox 98 Oxygen Delivery Method Positive well nourished and well developed General Appearance ED: well developed HEENT Reports moist mucous membranes HEENT Narrative: Normal posterior pharynx. Eyes PERRL and EOMs intact bilaterally Neck supple Lymph Lymphatic: other Chest Wall inspection of chest normal and palpation of chest normal Resp normal respiratory effort and clear to auscultation bilaterally Cardio regular rate and regular rhythm GI normal to inspection, nondistended, normoactive bowel sounds and non-tender Palpation: soft Neuro oriented x3 Sensorium / Orientation: alert Psych mental status grossly normal Skin no rashes or lesions noted MDM MDM MDM Narrative Medical decision making narrative: Patient's O2 sats is stable on room air. She has had symptoms for 11 days. In light of this and Covid PCR test is sent. Chest x-ray and labs obtained. Lab Data Attestation: I reviewed the patient's lab results. Labs: Laboratory Results - last 24 hr 02/16/21 02/16/21 02/16/21 13:20 13:20 14:11 WBC 3.9 L RBC 4.63 Hgb 13.8 Hct 42.1 MCV 90.9 MCH 29.8 MCHC 32.8 RDW Std Deviation 41.5 RDW Coeff of Neri 12.5 Plt Count 118 L MPV 12.8 H Immature Gran % (Auto) 0.500 Neut % (Auto) 66.9 Lymph % (Auto) 20.5 Corson % (Auto) 11.8 H Eos % (Auto) 0.0 Baso % (Auto) 0.3 Absolute Neuts (auto) 2.6 Absolute Lymphs (auto) 0.80 L Nucleated RBC % 0 Sodium 139 Potassium 3.4 L Chloride 104 Carbon Dioxide 27.0 Anion Gap 8 BUN 12 Creatinine 0.97 Estim Creat Clear Calc 53.26 Est GFR (MDRD) Af Amer 75 Est GFR (MDRD) Non-Af 62 BUN/Creatinine Ratio 12.4 Glucose 105 Calcium 8.4 L COVID-19 ([place]) Positive Radiography Chest X-Ray - ED: 1 View, Read by ED Physician, Normal, Heart, Lungs and Mediastinum Diagnostic Testing: Clinical Impression(s) from Imaging Studies Chest X-Ray 02/16/21 14:00 IMPRESSION: Normal x-ray examination of the chest. Electronically Signed: Tiffanie Avlarez MD at 15:12 EST Tel , Service support , Treatment and Re-Evaluation Comments:: Patient's lab work reviewed. She is slightly leukopenic consistent with a viral infection. Covid PCR test is positive. Chest x-ray reveals no focal infiltrate. O2 sat remains 98 to 100% on room air. Test results discussed with her. At this time she is not a candidate for monoclonal antibodies that she is outside the window. I will treat her with Decadron and I did encourage her to get a pulse ox to monitor her oxygen level. Return instructions are provided. Discharge Plan Triage Chief Complaint: Shortness of Breath Other Complaint: Fever Sore Throat ED Provider: Hue Rodriguez Dx/Rx/DC Orders Clinical Impression: COVID-19 Instructions: Coronavirus Disease 2019 (COVID-19): Overview, Coronavirus Disease 2019 (COVID-19): Caring for Yourself or Others Prescriptions: New dexamethasone [Decadron] 6 mg tablet 6 mg PO DAILY Qty: 9 RF: 0 No Action carvedilol 25 mg tablet 25 mg PO BID Qty: 180 RF: 3 spironolactone 25 mg tablet 12.5 mg PO DAILY Qty: 45 RF: 3 furosemide 40 mg tablet 40 mg PO BID Qty: 180 RF: 3 nabumetone 750 mg tablet 750 mg PO BID Qty: 180 RF: 2 Primary Care Provider: Davina Meredith Referrals: Davina Meredith MD [Primary Care Provider] - 1-2 Weeks Disposition Disposition: Home, Self Care Discharge Date/Time: 02/16/21 16:28
[2021-02-16 13:52] LABS: Absolute Neutrophil Count 2.6 X10^3/uL (2.0-7.7); Basophil# 0.01 X10^3/uL; Basophil% 0.3 % (0-1); Hematocrit 42.1 % (37-47); Hemoglobin 13.8 g/dL (12.0-15.0); Lymphocyte % 20.5 % (19-41); Mean Corp Hgb Conc 32.8 g/dL (32-36); Mean Corpuscular Hgb 29.8 pg (27.0-32.0); Mean Corpuscular Volume 90.9 fL (81-99); Mean Platelet Vol. 12.8 fl (6.2-12.0); Monocyte# 0.46 X10^3/uL; Monocyte% 11.8 % (0-10); NRBC Flagged by Analyzer 0 % (0-5); Neutrophil # 2.61 X10^3/uL (2.7-7.7); Neutrophil % 66.9 % (47-70); Platelet Count 118 K/mm3 (150-450); RBC Distribution Width CV 12.5 % (11.6-14.6); RBC Distribution Width SD 41.5 fl (35.1-43.9); Red Blood Count 4.63 M/mm3 (4.2-5.4); White Blood Count 3.9 K/mm3 (4.4-11.0)
[2021-02-16 14:00] VITALS: BP 96/62; PULSE 85; RESP 20; TEMP 36.3; O2SAT 100
--- NOTE | 2021-02-16 14:00 | RAD_ITS ---
STUDY: X-RAY CHEST REASON FOR EXAM: Female, 60 years old. sob TECHNIQUE: Frontal portable view of the chest COMPARISON: 19 October 2019 FINDINGS: The lungs are clear and expanded. There is no demonstrated pleural abnormality. Normal size heart. Normal mediastinum and helene. Normal visualized pulmonary arteries. Normal visualized aortic arch and descending thoracic aorta. Normal visualized thoracic spine. Normal visualized ribs, clavicles, and shoulders. There is no demonstrated abnormality of the visualized soft tissue structures of the upper abdomen. RAD/Chest 1 View (Portable) IMPRESSION: Normal x-ray examination of the chest. Electronically Signed: Tiffanie Alvarez MD at 15:12 EST Tel , Service support ,
[2021-02-16 14:02] LABS: Anion Gap 8 (5-15); BUN 12 mg/dL (7-18); BUN/Creat Ratio 12.4 RATIO (10-20); Calcium,Total 8.4 mg/dL (8.5-10.1); Chloride 104 mmol/L (98-107); Creatinine, Serum 0.97 mg/dL (0.55-1.02); EST Glomerular Filtration Rate 62 mL/min (>60); Est Glom Filt Rate - Afr Amer 75 mL/min (>60); Estimated Creatinine Clearance 53.26 ml/min; Glucose 105 mg/dL (74-106); Potassium 3.4 mmol/L (3.5-5.1); Sodium Level 139 mmol/L (136-145)
[2021-02-16 15:00] VITALS: BP 97/64; PULSE 78; RESP 18; TEMP 36.3; O2SAT 99
[2021-02-16 15:21] LABS: Probe Check PASS; Specimen Processing Control PASS
[2021-02-16 16:07] VITALS: BP 104/74; PULSE 76; RESP 18; O2SAT 98
[2021-02-16] MEDS: dexAMETHasone 4 MG Tablet 6 MG PO (16:17)
== END 2021-02-16 16:28 | disposition home or self-care (01) ==
PROVIDERS: Emergency Provider Emergency Medicine; PCP Family Medicine
DX: U07.1 COVID-19 (principal); I50.22 Chronic systolic (congestive) heart failure; I42.8 Other cardiomyopathies; Z87.891 Personal history of nicotine dependence; Z79.899 Other long term (current) drug therapy
CPT/HCPCS: 71045; 80048; 85025; 87635; 99284; U0005; U0003

== ENCOUNTER → 2022-02-16 | Outpatient (CLI) | payer BC, SELFPAY ==
[2022-02-16 17:47] LABS: Absolute Lymphocyte Count 2.37 X10^3/uL (0.83-4.51); Absolute Neutrophil Count 5.1 X10^3/uL (2.0-7.7); Basophil# 0.06 X10^3/uL; Basophil% 0.7 % (0-1); Eosinophils% 1.2 % (0-5); Hematocrit 41.5 % (37-47); Hemoglobin 13.7 g/dL (12.0-15.0); Lymphocyte # 2.37 X10^3/ul (0.83-4.51); Mean Corpuscular Hgb 31.8 pg (27.0-32.0); Mean Corpuscular Volume 96.3 fL (81-99); Mean Platelet Vol. 12.1 fl (6.2-12.0); Monocyte# 0.77 X10^3/uL; Monocyte% 9.1 % (0-10); NRBC Flagged by Analyzer 0 % (0-5); Neutrophil # 5.14 X10^3/uL (2.7-7.7); Neutrophil % 60.8 % (47-70); Platelet Count 208 K/mm3 (150-450); RBC Distribution Width CV 12.5 % (11.6-14.6); RBC Distribution Width SD 44.6 fl (35.1-43.9); Red Blood Count 4.31 M/mm3 (4.2-5.4); White Blood Count 8.5 K/mm3 (4.4-11.0)
[2022-02-16 18:21] LABS: ALB/GLOB Ratio 1.3 RATIO (0.9-2.4); AST(SGOT) 14 U/L (15-37); Alanine Aminotransfer ALT/SGPT 27 U/L (13-56); Albumin, Serum 3.7 g/dL (3.2-5.0); Alkaline Phosphatase 57 U/L (45-117); Anion Gap 6 (5-15); BUN 14 mg/dL (7-18); BUN/Creat Ratio 14.6 RATIO (10-20); Calcium,Total 8.8 mg/dL (8.5-10.1); Chloride 105 mmol/L (98-107); Cholesterol 217 mg/dL (200); Creatinine, Serum 0.96 mg/dL (0.55-1.02); EST Glomerular Filtration Rate 62 mL/min (>60); Est Glom Filt Rate - Afr Amer 76 mL/min (>60); Globulin 2.9 g/dL (2.2-4.2); Glucose 91 mg/dL (74-106); High Density Lipoprotein 58 mg/dL; Protein, Total 6.6 g/dL (6.4-8.2); Sodium Level 141 mmol/L (136-145); Thyroid Stim Hormone (TSH) 1.74 uIU/mL (0.358-3.74); Triglycerides 210 mg/dL; Very Low Density Lipoprotein 42 mg/dL (5-40)
== END | disposition home or self-care (01) ==
LOC: MFPLAB 14:09
PROVIDERS: PCP Family Medicine; Visit Provider Family Medicine
DX: I50.9 Heart failure, unspecified (principal); I42.9 Cardiomyopathy, unspecified
CPT/HCPCS: 36415; 80053; 80061; 84443; 85025

== ENCOUNTER → 2022-05-08 | Outpatient (CLI) | payer BC, SELFPAY ==
--- NOTE | 2022-05-08 15:02 | ECHOD_ITS ---
Reason For Study: Dyspnea/SOB Procedure This was a 2D Doppler, Color Flow transthoracic echocardiogram. Myocardial strain analysis was performed in this exam to aid in the assessment of cardiac function. Exam performed in department. Left Ventricle Normal LV size. The estimated ejection fraction is 35 %. There is moderate global hypokinesis of the left ventricle. Right Ventricle Normal RV size. Normal systolic function. Atria Normal left atrium. Normal right atrium. Mitral Valve Normal mitral valve. Tricuspid Valve Normal tricuspid valve. Mild (1+) tricuspid valve insufficiency. Pulmonary artery systolic pressure is 33 mmHg. Aortic Valve Normal aortic valve. Trisinus/trileaflet aortic valve. Pulmonic Valve Normal pulmonic valve. Great Vessels Normal aortic root. The pulmonary artery is normal size. Normal inferior vena cava. Pericardium/Pleural No pericardial effusion. MMode/2D Measurements & Calculations LVIDd: 5.8 cm IVSd: 0.75 cm Ao root diam: 3.2 cm LVIDs: 4.5 cm LVPWd: 0.68 cm LA dimension: 3.9 cm RVDd: 4.0 cm FS: 21.3 % LAV(MOD-bp): 54.7 ml LVAd ap4: 35.5 cm2 SV(MOD-sp4): 55.1 ml LAV(MOD-bp) Indexed: 31.7 ml/m2 LVLd ap4: 7.5 cm LAV(MOD-sp2): 53.7 ml EDV(MOD-sp4): 135.9 ml LAV(MOD-sp4): 55.3 ml EDV(sp4-el): 142.9 ml LVAs ap4: 25.4 cm2 LVLs ap4: 6.5 cm ESV(MOD-sp4): 80.8 ml ESV(sp4-el): 83.6 ml EF(MOD-sp4): 40.6 % EF(sp4-el): 41.5 % SV(sp4-el): 59.2 ml LA A4 area: 18.7 cm2 RA A4 area: 16.0 cm2 Time Measurements MV dec time: 0.19 sec Doppler Measurements & Calculations MV E max mario: 52.5 cm/sec Lat Peak E' Mario: 5.3 cm/sec Med Peak E' Mario: 7.9 cm/sec MV A max mario: 66.1 cm/sec E/E' lat: 9.8 E/E' med: 6.7 MV E/A: 0.79 MV V2 max: 79.1 cm/sec Ao V2 max: 98.1 cm/sec MV max P.5 mmHg MV dec slope: 278.4 cm/sec2 Ao max P.8 mmHg MV V2 mean: 38.8 cm/sec Ao V2 mean: 71.3 cm/sec MV mean P.73 mmHg Ao mean P.3 mmHg MV V2 VTI: 23.1 cm Ao V2 VTI: 25.5 cm AV (velocity ratio): 0.80 LV V1 max: 82.8 cm/sec MR max mario: 346.5 cm/sec PA V2 max: 81.1 cm/sec LV V1 max P.8 mmHg MR max P.0 mmHg LV V1 mean P.6 mmHg LV V1 mean: 59.9 cm/sec LV V1 VTI: 20.5 cm PI dec slope: 140.8 cm/sec2 TR max mario: 270.9 cm/sec TR max P.4 mmHg ECHO/Echo Complete Interpretation Summary Normal LV size. The estimated ejection fraction is 35 %. There is moderate global hypokinesis of the left ventricle. Pulmonary artery systolic pressure is 33 mmHg. The global longitudinal strain is moderately abnormal. The global longitudinal strain = -14.7% (abnormal). Compared to previous study, the left ventricular systolic function has worsened.. Ordering Physician: Esteban Salgado Referring Physician: Davina Meredith M.D. Performed By: Edgar Seo RCS
== END | disposition home or self-care (01) ==
PROVIDERS: PCP Family Medicine; Referring Provider Internal Medicine Cardiovascular Disease; Visit Provider Internal Medicine Cardiovascular Disease
DX: I42.8 Other cardiomyopathies (principal); R06.00 Dyspnea, unspecified; R06.02 Shortness of breath
CPT/HCPCS: 93306

== ENCOUNTER → 2022-05-25 | Outpatient (CLI) | payer BC, SELFPAY ==
[2022-05-25 15:31] LABS: Anion Gap 6 (5-15); BUN 17 mg/dL (7-18); Calcium,Total 8.7 mg/dL (8.5-10.1); Chloride 108 mmol/L (98-107); Creatinine, Serum 1.06 mg/dL (0.55-1.02); EST Glomerular Filtration Rate 56 mL/min (>60); Est Glom Filt Rate - Afr Amer 68 mL/min (>60); Glucose 85 mg/dL (74-106); Potassium 3.8 mmol/L (3.5-5.1); Sodium Level 143 mmol/L (136-145)
== END | disposition home or self-care (01) ==
LOC: MFPLAB 11:19
PROVIDERS: Nurse Practitioner Family; PCP Family Medicine; Visit Provider Internal Medicine Cardiovascular Disease
DX: I50.22 Chronic systolic (congestive) heart failure (principal); I42.8 Other cardiomyopathies
CPT/HCPCS: 36415; 80048

== ENCOUNTER → 2022-08-17 | Outpatient (CLI) | payer BC, SELFPAY ==
[2022-08-17 15:23] LABS: Absolute Lymphocyte Count 1.74 X10^3/uL (0.83-4.51); Absolute Neutrophil Count 4.3 X10^3/uL (2.0-7.7); Basophil# 0.04 X10^3/uL; Basophil% 0.6 % (0-1); Eosinophils% 1.5 % (0-5); Hematocrit 46.3 % (37-47); Hemoglobin 14.7 g/dL (12.0-15.0); Lymphocyte # 1.74 X10^3/ul (0.83-4.51); Lymphocyte % 25.6 % (19-41); Mean Corp Hgb Conc 31.7 g/dL (32-36); Mean Corpuscular Hgb 30.8 pg (27.0-32.0); Mean Corpuscular Volume 97.1 fL (81-99); Mean Platelet Vol. 12.2 fl (6.2-12.0); Monocyte# 0.63 X10^3/uL; Monocyte% 9.3 % (0-10); NRBC Flagged by Analyzer 0 % (0-5); Neutrophil # 4.26 X10^3/uL (2.7-7.7); Neutrophil % 62.7 % (47-70); Platelet Count 169 K/mm3 (150-450); RBC Distribution Width CV 12.6 % (11.6-14.6); RBC Distribution Width SD 45.1 fl (35.1-43.9); Red Blood Count 4.77 M/mm3 (4.2-5.4); White Blood Count 6.8 K/mm3 (4.4-11.0)
[2022-08-17 15:52] LABS: Anion Gap 4 (5-15); BUN 15 mg/dL (7-18); BUN/Creat Ratio 16.5 RATIO (10-20); Calcium,Total 8.6 mg/dL (8.5-10.1); Chloride 108 mmol/L (98-107); Creatinine, Serum 0.91 mg/dL (0.55-1.02); EST Glomerular Filtration Rate 67 mL/min (>60); Est Glom Filt Rate - Afr Amer 81 mL/min (>60); Glucose 83 mg/dL (74-106); Magnesium 2.3 mg/dL (1.6-2.6); Potassium 3.9 mmol/L (3.5-5.1); Sodium Level 140 mmol/L (136-145)
[2022-08-17 15:53] LABS: Vitamin D,25 Hydroxy 46.7 ng/mL
== END | disposition home or self-care (01) ==
LOC: MFPLAB 13:55
PROVIDERS: PCP Family Medicine; Visit Provider Family Medicine
DX: I50.9 Heart failure, unspecified (principal); I42.9 Cardiomyopathy, unspecified; L85.3 Xerosis cutis
CPT/HCPCS: 36415; 80048; 82306; 83735; 84443; 85025

== ENCOUNTER → 2022-08-24 | Outpatient (CLI) | payer BC, SELFPAY ==
--- NOTE | 2022-08-24 13:48 | ECHOL_ITS ---
Reason For Study: CHF Procedure This was a limited 2D transthoracic echocardiogram. Exam performed in department. Left Ventricle Normal LV size. The estimated ejection fraction is 35 %. No regional wall motion abnormalities noted. There is moderate global hypokinesis of the left ventricle. Right Ventricle Normal RV size. Normal systolic function. Atria Normal left atrium. Normal right atrium. Mitral Valve Normal mitral valve. Tricuspid Valve Normal tricuspid valve. Aortic Valve Normal aortic valve. Trisinus/trileaflet aortic valve. Pulmonic Valve Normal pulmonic valve. Great Vessels Normal aortic root. The pulmonary artery is normal size. Normal inferior vena cava. Inferior vena cava collapse with respiration. Pericardium/Pleural No pericardial effusion. MMode/2D Measurements & Calculations LVIDd: 5.4 cm IVSd: 0.97 cm LAV(MOD-bp): 50.8 ml LVIDs: 4.4 cm LVPWd: 0.89 cm LAV(MOD-bp) Indexed: 29.4 ml/m2 FS: 18.2 % LAV(MOD-sp2): 44.2 ml LAV(MOD-sp4): 54.9 ml SV(MOD-sp4): 53.1 ml SV(sp4-el): 59.3 ml LVAd ap4: 36.1 cm2 LVLd ap4: 7.5 cm EDV(MOD-sp4): 137.9 ml EDV(sp4-el): 147.7 ml LVAs ap4: 26.5 cm2 LVLs ap4: 6.7 cm ESV(MOD-sp4): 84.8 ml ESV(sp4-el): 88.4 ml EF(MOD-sp4): 38.5 % EF(sp4-el): 40.2 % LA A4 area: 18.1 cm2 LA dimension(2D): 3.9 cm RA A4 area: 16.1 cm2 ECHO/Echo, Limited Study Interpretation Summary Normal LV size. The estimated ejection fraction is 35 %. There is moderate global hypokinesis of the left ventricle. The global longitudinal strain is mildly abnormal. The global longitudinal stra in = -15.6% (abnormal). Compared to previous study, the left ventricular systolic function is the same.. Ordering Physician: Joseph Mccracken Referring Physician: Joseph Mccracken Performed By: Breonna Snider RCS
== END | disposition home or self-care (01) ==
PROVIDERS: PCP Family Medicine; Referring Provider Nurse Practitioner Family; Visit Provider Nurse Practitioner Family
DX: I42.8 Other cardiomyopathies (principal); I50.9 Heart failure, unspecified
CPT/HCPCS: 93308

== ENCOUNTER → 2023-02-17 | Outpatient (CLI) | payer BC, SELFPAY ==
--- NOTE | 2023-02-17 13:37 | ECHOLC_ITS ---
Reason For Study: Evaluate EF Procedure This was a limited 2D transthoracic echocardiogram. Contrast injection was performed. Exam performed in department. Left Ventricle Normal LV size. The estimated ejection fraction is 40 %. There is mild to moderate global hypokinesis of the left ventricle. Right Ventricle Normal RV size. Normal systolic function. Atria Normal left atrium. Normal right atrium. Mitral Valve Normal mitral valve. Mild (1+) eccentric mitral valve insufficiency. Tricuspid Valve Normal tricuspid valve. Mild tricuspid valve insufficiency. Pulmonary artery systolic pressure is 30 mmHg. Aortic Valve Trisinus/trileaflet aortic valve. Pulmonic Valve The pulmonic valve is not well visualized. Great Vessels Normal aortic root. The pulmonary artery is normal size. Normal inferior vena cava. Pericardium/Pleural No pericardial effusion. Medication Diluted definity 1.5ml given slow IV push to enhance endocardial definition. MMode/2D Measurements & Calculations LVIDd: 4.9 cm IVSd: 0.81 cm LVIDs: 3.9 cm LVPWd: 0.72 cm LVAd ap4: 29.6 cm2 FS: 19.1 % LVLd ap4: 7.4 cm EDV(MOD-sp4): 100.7 ml EDV(sp4-el): 100.8 ml LVAs ap4: 21.6 cm2 LVLs ap4: 6.4 cm ESV(MOD-sp4): 62.2 ml ESV(sp4-el): 62.2 ml EF(MOD-sp4): 38.2 % EF(sp4-el): 38.3 % SV(MOD-sp4): 38.5 ml SV(sp4-el): 38.6 ml Doppler Measurements & Calculations TR max villa: 259.1 cm/sec TR max P.9 mmHg ECHO/Echo Limited w/Contrast Interpretation Summary Normal LV size. The estimated ejection fraction is 40 %. There is mild to moderate global hypokinesis of the left ventricle. Pulmonary artery systolic pressure is 30 mmHg. Contrast injection was performed. Ordering Physician: Joseph Mccracken Referring Physician: Davina Meredith Performed By: Anna Mccracken RDCS, RVT
== END | disposition home or self-care (01) ==
PROVIDERS: PCP Family Medicine; Referring Provider Nurse Practitioner Family; Visit Provider Nurse Practitioner Family
DX: I42.8 Other cardiomyopathies (principal)
CPT/HCPCS: 93308; Q9957; A4216; C8924

== ENCOUNTER → 2023-03-10 | Outpatient (CLI) | payer BC, SELFPAY ==
[2023-03-10 16:16] LABS: Anion Gap 5 (5-15); BUN 16 mg/dL (7-18); BUN/Creat Ratio 18.5 RATIO (10-20); Calcium,Total 9.2 mg/dL (8.5-10.1); Chloride 110 mmol/L (98-107); Creatinine, Serum 0.86 mg/dL (0.55-1.02); EST Glomerular Filtration Rate 71 mL/min (>60); Est Glom Filt Rate - Afr Amer 85 mL/min (>60); Glucose 86 mg/dL (74-106); Potassium 4.1 mmol/L (3.5-5.1); Sodium Level 142 mmol/L (136-145)
== END | disposition home or self-care (01) ==
LOC: MTLAB 13:23
PROVIDERS: PCP Family Medicine; Referring Provider Nurse Practitioner Family; Visit Provider Nurse Practitioner Family
DX: I42.8 Other cardiomyopathies (principal); I50.22 Chronic systolic (congestive) heart failure
CPT/HCPCS: 36415; 80048

== ENCOUNTER → 2023-06-24 | Outpatient (CLI) | payer BC, SELFPAY ==
[2023-06-24 16:41] LABS: ALB/GLOB Ratio 1.1 RATIO (0.9-2.4); AST(SGOT) 18 U/L (15-37); Alanine Aminotransfer ALT/SGPT 21 U/L (13-56); Albumin, Serum 3.7 g/dL (3.2-5.0); Alkaline Phosphatase 57 U/L (45-117); Anion Gap 2 (5-15); BUN 15 mg/dL (7-18); BUN/Creat Ratio 14.9 RATIO (10-20); Calcium,Total 9.2 mg/dL (8.5-10.1); Chloride 108 mmol/L (98-107); Creatinine, Serum 1.01 mg/dL (0.55-1.02); EST Glomerular Filtration Rate 59 mL/min (>60); Est Glom Filt Rate - Afr Amer 71 mL/min (>60); Globulin 3.5 g/dL (2.2-4.2); Glucose 99 mg/dL (74-106); Potassium 4.4 mmol/L (3.5-5.1); Protein, Total 7.2 g/dL (6.4-8.2); Sodium Level 139 mmol/L (136-145)
== END | disposition home or self-care (01) ==
LOC: MFPLAB 14:11
PROVIDERS: PCP Family Medicine; Visit Provider Nurse Practitioner Family
DX: I42.8 Other cardiomyopathies (principal)
CPT/HCPCS: 36415; 80053

== ENCOUNTER → 2024-01-18 | Outpatient (CLI) | payer BC, SELFPAY ==
--- NOTE | 2024-01-18 12:37 | ECHOD_ITS ---
Reason For Study: CARDIOMYOPATHY Procedure This was a 2D Doppler, Color Flow transthoracic echocardiogram. Myocardial strain analysis was performed in this exam to aid in the assessment of cardiac function. Exam performed in department. Left Ventricle Normal LV size. The left ventricular ejection fraction is 45 %. Stage 1 diastolic dysfunction. There is mild to moderate global hypokinesis of the left ventricle. Right Ventricle Normal RV size. Normal systolic function. Atria Normal left atrium. Normal right atrium. Mitral Valve Normal mitral valve. Mild (1+) eccentric mitral valve insufficiency. Tricuspid Valve Normal tricuspid valve. Mild (1+) tricuspid valve insufficiency. Pulmonary artery systolic pressure is 34 mmHg. Aortic Valve Trisinus/trileaflet aortic valve. Pulmonic Valve Normal pulmonic valve. Mild (1+) pulmonic valve insufficiency. Great Vessels Normal aortic root. The pulmonary artery is normal size. Inferior vena cava collapse with sniff. Pericardium/Pleural Trivial pericardial effusion. MMode/2D Measurements & Calculations LVIDd: 5.3 cm IVSd: 0.77 cm LVOT diam: 2.2 cm LVIDs: 4.1 cm LVPWd: 0.67 cm LVOT area: 3.7 cm2 RVDd: 3.1 cm FS: 22.9 % asc Aorta Diam: 3.2 cm LAV(MOD-bp): 37.4 ml LVAd ap4: 28.6 cm2 LAV(MOD-bp) Indexed: 22.2 ml/m2 LVLd ap4: 7.3 cm LAV(MOD-sp2): 34.5 ml EDV(MOD-sp4): 90.9 ml LAV(MOD-sp4): 40.1 ml EDV(sp4-el): 95.0 ml LVAs ap4: 18.6 cm2 LVLs ap4: 6.3 cm ESV(MOD-sp4): 45.2 ml ESV(sp4-el): 46.3 ml EF(MOD-sp4): 50.2 % EF(sp4-el): 51.3 % LVAd ap2: 27.5 cm2 SV(MOD-sp4): 45.7 ml SV(MOD-sp2): 43.5 ml LVLd ap2: 7.5 cm SI(MOD-sp4): 27.1 ml/m2 SI(MOD-sp2): 25.8 ml/m2 EDV(MOD-sp2): 82.8 ml EDV(sp2-el): 85.7 ml LVAs ap2: 17.4 cm2 LVLs ap2: 6.6 cm ESV(MOD-sp2): 39.4 ml ESV(sp2-el): 39.2 ml EF(MOD-sp2): 52.5 % SV(sp4-el): 48.7 ml Ao sinus diam: 3.[address] [place]: 2.5 cm LA dimension(2D): 3.8 cm LA A4 area: 14.8 cm2 RA A4 area: 13.2 cm2 TAPSE: 2.3 cm Time Measurements MV dec time: 0.18 sec Doppler Measurements & Calculations MV E max mario: 57.1 cm/sec Lat Peak E' Mario: 8.0 cm/sec Med Peak E' Mario: 5.6 cm/sec MV A max mario: 58.4 cm/sec E/E' lat: 7.2 E/E' med: 10.1 MV E/A: 0.98 MV dec slope: 318.2 cm/sec2 Ao V2 max: 80.6 cm/sec LV V1 max: 66.9 cm/sec Ao max P.6 mmHg LV V1 max P.8 mmHg Ao V2 mean: 54.1 cm/sec LV V1 mean P.3 mmHg Ao mean P.4 mmHg LV V1 mean: 55.9 cm/sec Ao V2 VTI: 19.1 cm LV V1 VTI: 16.2 cm AV (velocity ratio): 0.84 JENNIFER(I,D): 3.2 cm2 JENNIFER(V,D): 3.1 cm2 SV(LVOT): 60.4 ml PA V2 max: 67.8 cm/sec TR max mario: 272.8 cm/sec PA max PG (full): 1.1 mmHg TR max P.8 mmHg ECHO/Echo Complete Interpretation Summary The left ventricular ejection fraction is 45 %. Normal LV size. Stage 1 diastolic dysfunction. Pulmonary artery systolic pressure is 34 mmHg. The global longitudinal strain is moderately abnormal. Ordering Physician: Esteban Salgado Referring Physician: Davina Meredith M.D. Performed By: Ria Haas RDCS
--- NOTE | 2024-01-18 12:37 | EKG12_ITS ---
Test Reason : DILATED CARDIOMOPATH Blood Pressure : */* mmHG Vent. Rate : 54 BPM Atrial Rate : 54 BPM P-R Int : 142 ms QRS Dur : 72 ms QT Int : 430 ms P-R-T Axes : 70 -17 262 degrees QTcB Int : 407 ms Sinus bradycardia Low voltage QRS ST & T wave abnormality, consider inferior ischemia ST & T wave abnormality, consider anterolateral ischemia Abnormal ECG Confirmed by Hernan Calzada ([id number]), social media editor MELISSA CONNELL ([id number]) on 01/19/2024 5:55:40 AM Referred By: Esteban Salgado Confirmed By: Hernan Calzada
== END | disposition home or self-care (01) ==
LOC: CVS 12:37
PROVIDERS: PCP Family Medicine; Referring Provider Internal Medicine Cardiovascular Disease; Visit Provider Internal Medicine Cardiovascular Disease
DX: I42.8 Other cardiomyopathies (principal)
CPT/HCPCS: 93005; 93306

== ENCOUNTER → 2024-12-26 | Outpatient (CLI) | payer BC, SELFPAY ==
[2024-12-26 18:38] LABS: Hematocrit 43.1 % (37-47); Hemoglobin 14.2 g/dL (12.0-15.0); Immature Granulocytes Count 0.010 X10^3/uL (0.0-0.0); Mean Corp Hgb Conc 32.9 g/dL (32-36); Mean Corpuscular Volume 90.9 fL (81-99); Mean Platelet Vol. 11.9 fl (6.2-12.0); NRBC Flagged by Analyzer 0 % (0-5); Platelet Count 205 K/mm3 (150-450); RBC Distribution Width CV 12.9 % (11.6-14.6); RBC Distribution Width SD 43.3 fl (35.1-43.9); Red Blood Count 4.74 M/mm3 (4.2-5.4); White Blood Count 6.8 K/mm3 (4.4-11.0)
[2024-12-26 19:06] LABS: Anion Gap 11 (5-15); BUN 20 mg/dL (4-19); BUN/Creat Ratio 21.1 RATIO (10-20); Calcium,Total 9.0 mg/dL (7.6-11.0); Carbon Dioxide 25.2 mmol/L (21.0-32.0); Chloride 102 mmol/L (98-108); Glucose 86 mg/dL (70-99); Potassium 4.3 mmol/L (3.3-5.1); Pro- Brain NATRIURETIC PEPTIDE 51 pg/mL (<=900)
== END | disposition home or self-care (01) ==
PROVIDERS: PCP Family Medicine; Visit Provider Nurse Practitioner Family
DX: I42.8 Other cardiomyopathies (principal); R06.00 Dyspnea, unspecified
CPT/HCPCS: 36415; 80048; 83880; 85025

== ENCOUNTER → 2025-02-12 | Outpatient (CLI) | payer MEDICARE, OTHER, SELFPAY ==
[2025-02-12 15:14] LABS: Anion Gap 10 (5-15); BUN 17 mg/dL (4-19); BUN/Creat Ratio 19.4 RATIO (10-20); Calcium,Total 9.2 mg/dL (7.6-11.0); Carbon Dioxide 24.5 mmol/L (21.0-32.0); Chloride 107 mmol/L (98-108); Glucose 95 mg/dL (70-99); Potassium 4.4 mmol/L (3.3-5.1)
--- OUTSIDE RECORDS SUMMARY | 2025-02-12 19:12 | XMS RPT_ITS | CCD ---
Author Organization [facility] Care Team Providers Care Adaptive Physical Educator Name Role Phone Dr. Davina Meredith Primary Care Provider Dr. Davina Meredith Referring Provider Dr. Esteban Salgado Attending Provider Roof FLEET SERVICE MANAGER, FLEET SERVICE MANAGER-Jesenia Peraza Attending Provider Dr. Davina Meredith Primary Care Provider Dr. Esteban Salgado Attending Provider Roof FLEET SERVICE MANAGER, FLEET SERVICE MANAGER-Jesenia Peraza Attending Provider Dr. Davina Meredith Primary Care Provider Dr. Davina Meredith Referring Provider Roof FLEET SERVICE MANAGER, ZUHAIR-Jesenia Peraza Attending Provider Dr. Esteban Salgado Attending Provider Dr. Davina Meredith Primary Care Provider Dr. Esteban Salgado Referring Provider 1([facility])[phone] Roof FLEET SERVICE MANAGER, ZUHAIR-Jesenia Peraza Attending Provider Dr. Davina Meredith Primary Care Provider Dr. Davina Meredith Referring Provider Roof FLEET SERVICE MANAGER, FLEET SERVICE MANAGER-C Joseph Peraza Attending Provider Esteban Salgado Attending Unavailable Esteban Salgado Referring Unavailable Davina Meredith Primary Care Unavailable Joseph Bojorquez Primary Care Unavailable Roof FLEET SERVICE MANAGER, Joseph Peraza Attending Unavailable Esteban Salgado Attending Unavailable Davina Meredith Primary Care Unavailable Joseph Bojorquez Primary Care Unavailable Davina Meredith Referring Unavailable Joseph Mccracken NP Attending Unavailable Dr. Davina Meredith MD Referring Provider Joseph Carl Attending Physician Dr. Joseph Bojorquez MD Primary Care Physician Medications Current Medications Medication Drug Class(es) Dates Sig (Normalized) Sig (Original) carvedilol 25 mg oral tablet (20 sources) alpha-Adrenergic Dao, beta-Adrenergic Dao Start: 01-04-2025 take 1 tablet by mouth twice daily at mealtime Start: 02-28-2020 End: 01-04-2025 take 1 tablet by mouth twice daily at mealtime Carvedilol 25 mg tablet Discontinued 25 mg PO TWICE A DAY 180 September 12, 2024 1:53pm January 04, 2025 10:02am must administer with a meal/food Start: 02-16-2020 End: 02-28-2020 take 1 tablet by mouth twice daily at mealtime Carvedilol 12.5 mg tablet Discontinued 12.5 mg PO TWICE A DAY 60 February 16, 2020 2:48pm February 28, 2020 5:42pm must administer with a meal/food Start: 11-08-2019 End: 02-16-2020 take 1 tablet by mouth twice daily at mealtime Carvedilol (Coreg) 6.25 mg tablet Discontinued 6.25 mg PO TWICE A DAY 180 November 27, 2019 11:44am February 16, 2020 2:49pm must administer with a meal/food dapagliflozin 10 mg oral tablet (20 sources) Sodium-Glucose Cotransporter 2 Inhibitor Start: 01-04-2025 take 1 tablet by mouth once daily Start: 05-08-2022 End: 01-04-2025 take 1 tablet by mouth once daily Dapagliflozin Propanediol (Farxiga) 10 mg tablet Discontinued 10 mg PO DAILY 90 July 20, 2024 1:33pm January 04, 2025 10:02am furosemide 20 mg oral tablet (20 sources) Loop Diuretic Start: 01-04-2025 Start: 04-14-2022 End: 01-04-2025 take 1 tablet by mouth once daily Furosemide (Lasix) 20 mg tablet Discontinued 20 mg PO DAILY 90 February 22, 2023 1:26pm June 22, 2023 11:16am Start: 10-19-2019 End: 04-14-2022 Furosemide 40 mg tablet Disc ontinued 40 mg PO .COMPLEX 180 3 November 11, 2021 11:08am April 14, 2022 5:09pm edema 40 mg orally once daily, and should take twice daily as needed for edema and shortness of breath; sacubitril 97 mg / valsartan 103 mg oral tablet (20 sources) Angiotensin 2 Receptor Dao Start: 01-04-2025 Start: 02-22-2023 End: 01-04-2025 Sacubitril-Valsartan (Entres to) 97-103 mg tablet Discontinued 1 {tbl} PO TWICE A DAY 180 3 March 10, 2024 2:36pm January 04, 2025 10:02am Start: 08-24-2022 End: 02-22-2023 Sacubitril-Valsartan (Entres to) 49-51 mg tablet Discontinued 1 {tbl} PO TWICE A DAY 180 February 17, 2023 2:22pm February 22, 2023 1:21pm Evaluate pricing Start: 05-25-2022 End: 06-05-2022 Sacubitril-Valsartan (Entres to) 49-51 mg tablet Discontinued 1 {tbl} PO TWICE A DAY 60 May 25, 2022 3:45pm June 05, 2022 10:58am On Hold: Checking Morris. Start: 09-30-2020 End: 10-09-2020 Sacubitril-Valsartan (Entres to) 49-51 mg tablet Discontinued 1 {tbl} PO TWICE A DAY 60 September 30, 2020 12:00am October 09, 2020 3:24pm spironolactone 25 mg oral ta blet (20 sources) Aldosterone Antagonist Start: 01-04-2025 Start: 11-08-2019 End: 06-22-2023 Spironolactone 25 mg tablet Discontinued 12.5 mg PO DAILY 45 February 22, 2023 1:26pm June 22, 2023 11:32am Start: 11-08-2019 End: 06-22-2023 take 12.5 mg by mouth once daily Spironolactone Discontinued 12.5 MG PO DAILY February 22, 2023 1:26pm June 22, 2023 11:32am Completed/Discontinued Medications Medication Drug Class(es) Dates Sig (Normalized) Sig (Original) [id number] 200 actuat albuterol 0.09 mg/actuat metered dose inhaler (9 sources) beta2-Adrenergic Agonist Start: 10-12-2019 End: 11-08-2019 Albuterol Sulfate 90 mcg/actuation HFA aerosol inhaler Discontinued 2 INHALER PO EVERY 4 HOURS NEEDED as needed for Sob &/Or Wheezing October 12, 2019 12:00am November 08, 2019 3:27pm Start: 10-12-2019 End: 11-08-2019 Albuterol Sulfate Discontinu ed 2 INHALER PO EVERY 4 HOURS NEEDED October 12, 2019 12:00am November 08, 2019 3:27pm apixaban 5 mg oral tablet (20 sources) Factor Xa Inhibitor Start: 11-14-2019 End: 02-16-2020 take 1 tablet by mouth twice daily Apixaban 5 mg tablet Discontinued 5 mg PO TWICE A DAY 60 11 November 27, 2019 11:44am February 16, 2020 2:48pm Start: 10-12-2019 End: 11-14-2019 take 2 tablets by mouth twice daily, then take 1 tablet by mouth twice daily Apixaban 5 MG tablet Discontinued 5 mg PO TWICE A DAY 74 0 October 12, 2019 12:00am November 14, 2019 8:12pm 10 mg twice a day for the first week. Then 5 mg twice a day. Start: 10-12-2019 End: 11-14-2019 take 10 mg by mouth twice daily, then take 5 mg by mouth twice daily Apixaban Discontinued 5 MG PO TWICE A DAY 74 October 12, 2019 12:00am November 14, 2019 8:12pm 10 mg twice a day for the first week. Then 5 mg twice a day. dexamethasone 6 mg oral tablet (9 sources) Corticosteroid Start: 02-16-2021 End: 04-08-2021 take 1 tablet by mouth once daily Dexamethasone (Decadron) 6 mg tablet Discontinued 6 mg PO DAILY 9 0 February 16, 2021 1:00am April 08, 2021 4:55pm 12 hr guaiFENesin 1200 mg extended release oral tablet (9 sources) Start: 10-19-2019 End: 11-08-2019 take 1 tablet by mouth twice daily Guaifenesin 1,200 MG tablet Discontinued 1200 mg PO TWICE A DAY October 19, 2019 12:00am November 08, 2019 1:16pm losartan potassium 50 mg oral tablet (20 sources) Angiotensin 2 Receptor Dao Start: 04-08-2021 End: 11-13-2022 take 1 tablet by mouth once daily Losartan 50 mg tablet Discontinued 50 mg PO DAILY 90 3 June 05, 2022 10:59am November 13, 2022 11:56am Start: 05-22-2020 End: 09-30-2020 take 1 tablet by mouth once daily Losartan 50 mg tablet Discontinued 50 mg PO DAILY 90 3 May 22, 2020 5:40pm September 30, 2020 1:11pm Start: 11-08-2019 End: 05-22-2020 take 1 tablet by mouth once daily Losartan 25 mg tablet Discontinued 25 mg PO DAILY 90 3 November 27, 2019 10:56am March 02, 2020 12:35pm Start: 11-08-2019 End: 11-08-2019 take 1 tablet by mouth once daily Losartan 50 mg tablet Discontinued 50 mg PO DAILY November 08, 2019 12:00am November 08, 2019 3:51pm 24 hr metoprolol succinate 25 mg extended release oral tablet (9 sources) beta-Adrenergic Dao Start: 11-08-2019 End: 11-08-2019 take 1 tablet by mouth once daily Metoprolol Succinate 25 mg tablet extended release 24 hr Discontinued 25 mg PO DAILY November 08, 2019 12:00am November 08, 2019 3:51pm nabumetone 750 mg oral tablet (20 sources) Nonsteroidal Anti-inflammatory Drug Start: 05-22-2020 End: 04-14-2022 take 1 tablet by mouth twice daily Nabumetone 750 mg tablet Discontinued 750 mg PO TWICE A DAY 180 2 October 09, 2020 3:23pm April 14, 2022 4:41pm Problems Active Problems Problem Classification Problem Date Documented Da te Episodic/Chronic Congestive heart failure; nonhypertensive (18 sources) Heart failure; Translations: [Heart failure, unspecified] 10-21-2019 Chronic Other lower respiratory disease (10 sources) Dyspnea on exertion; Translations: [Other forms of dyspnea] 04-09-2022 Episodic Other lower respiratory disease (1 source) Dyspnea, unspecified; Translations: [Dyspnea, unspecified] Onset: 10-14-2025 Episodic [place]-; endo-; and myocarditis; cardiomyopathy (except that caused by tuberculosis or sexually transmitted disease) (15 sources) Cardiomyopathy; Translations: [Other cardiomyopathies] Onset: 01-08-2025 11-08-2019 Chronic Phlebitis; thrombophlebitis and thromboembolism (9 sources) Deep venous thrombosis; Translations: [Acute embolism and thrombosis of unspecified deep veins of unspecified lower extremity] 10-13-2019 Episodic Pneumonia (except that caused by tuberculosis or sexually transmitted disease) (9 sources) Pneumonia; Translations: [Pneumonia, unspecified organism] 10-13-2019 Episodic Pulmonary heart disease (18 sources) Pulmonary embolism; Translations: [Other pulmonary embolism without acute cor pulmonale] Onset: 10-12-2019 05-21-2020 Episodic Past or Other Problems Problem Classification Problem Date Documented Da te Episodic/Chronic Viral infection (9 sources) Disease caused by 2019-nCoV; Translations: [COVID-19] Onset: 02-16-2021 04-09-2022 Episodic Results Test Name Value Interpretation Reference Range Facility Absolute lymphocyte countOrd ered By: Joseph Mccracken on 12-26-2024 Lymphocytes Auto (Unsp spec) [#/Vol] 2.10 10*3/uL 0.83-4.51 [facility] Absolute neutrophil countOrd ered By: Joseph Mccracken on 12-26-2024 Neutrophils (Bld) [#/Vol] 3.8 10*3/uL 2.0-7.7 [facility] Anion gap in Serum or Plasma Ordered By: Joseph Mccracken on 12-26-2024 Anion gap [Moles/Vol] 11 mmol/L 5-15 [facility] Automated lymphocyte count a s percentage of total leukocytesOrdered By: Joseph Mccracken on 12-26-2024 Lymphocytes/100 WBC Auto (Unsp spec) 31.0 % 19-41 [facility] BUN/creatinine ratioOrdered By: Joseph Mccracken on 12-26-2024 Urea nitrogen/Creatinine [Mass ratio] 21.1 mg/mg High 01-01 [facility] Basic Metabolic Profile (BMP )on 12-26-2024 BUN/CRE 21.1 RATIO High 01-01 [facility] Comment on above: Performed By: #### L 503.7505, L500.2500, L100.0100 #### [facility] [address] [place], [address] Calcium [Mass/Vol] 9.0 mg/dL Normal 7.6-11.0 [facility] Comment on above: Performed By: #### L 503.7505, L500.2500, L100.0100 #### [facility] [address] [place] [place], [address] Chloride [Moles/Vol] 102 mmol/L Normal 98-108 [facility] Comment on above: Performed By: #### L 503.7505, L500.2500, L100.0100 #### [facility] [address] [place] [place], [address] CO2 [Moles/Vol] 25.2 mmol/L Normal 21.0-32.0 [facility] Comment on above: Performed By: #### L 503.7505, L500.2500, L100.0100 #### [facility] [address] [place], [address] Creatinine [Mass/Vol] 0.95 mg/dL Normal 0.70-1.20 [facility] Comment on above: Performed By: #### L 503.7505, L500.2500, L100.0100 #### [facility] [address] [place] [place], [address] GAP 11 Normal 5-15 [facility] Comment on above: Performed By: #### L 503.7505, L500.2500, L100.0100 #### [facility] [address] [place] [place], [address] GFR/1.73 sq M.predicted among non-blacks MDRD (S/P/Bld) [Vol rate/Area] 67 mL/min/{1.73_m2} Normal >60 [facility] Comment on above: Result Comment: mL/m in/1.73m2 CKD-EPI Creatinine Equation (2020) Performed By: #### L 503.7505, L500.2500, L100.0100 #### [facility] [address] [place], [address] Glucose [Mass/Vol] 86 mg/dL Normal 70-99 [facility] Comment on above: Performed By: #### L 503.7505, L500.2500, L100.0100 #### [facility] [address] [place], [address] Potassium [Moles/Vol] 4.3 mmol/L Normal 3.3-5.1 [facility] Comment on above: Performed By: #### L 503.7505, L500.2500, L100.0100 #### [facility] [address] [place], [address] Sodium [Moles/Vol] 138 mmol/L Normal 133-145 [facility] Comment on above: Performed By: #### L 503.7505, L500.2500, L100.0100 #### [facility] [address] [place], [address] Urea nitrogen [Mass/Vol] 20 mg/dL High - [facility] Comment on above: Performed By: #### L 503.7505, L500.2500, L100.0100 #### [facility] [address] [place], [address] Basophil percentageOrdered B y: Joseph Mccracken on 12-26-2024 Basophils/100 WBC (Bld) 0.9 % 0-1 [facility] CBC W/Diff, Automatedon 12-13 Absolute Lymph 2.10 X10 3/uL Normal 0.83-4.51 [facility] Comment on above: Performed By: #### L 503.7505, L500.2500, L100.0100 #### [facility] [address] [place], [address] Absolute Neut 3.8 X10 3/uL Normal 2.0-7.7 [facility] Comment on above: Performed By: #### L 503.7505, L500.2500, L100.0100 #### [facility] [address] [place], [address] Basophils/100 WBC (Bld) 0.9 % Normal 0-1 [facility] Comment on above: Performed By: #### L 503.7505, L500.2500, L100.0100 #### [facility] [address] [place], [address] Eosinophils/100 WBC (Bld) 1.5 % Normal 0-5 [facility] Comment on above: Performed By: #### L 503.7505, L500.2500, L100.0100 #### [facility] [address] [place], [address] Erythrocyte distribution width (RBC) [Ratio] 12.9 % Normal 11.6-14.6 [facility] Comment on above: Performed By: #### L 503.7505, L500.2500, L100.0100 #### [facility] [address] [place], [address] Hematocrit (Bld) [Volume fraction] 43.1 % Normal 37-47 [facility] Comment on above: Performed By: #### L 503.7505, L500.2500, L100.0100 #### [facility] [address] [place], [address] Hemoglobin (Bld) [Mass/Vol] 14.2 g/dL Normal 12.0-15.0 [facility] Comment on above: Performed By: #### L 503.7505, L500.2500, L100.0100 #### [facility] [address] [place], [address] IG% 0.100 Normal 0.0-0.9 [facility] Comment on above: Result Comment: IG% - Immature Granulocytes (promyelocytes, myelocytes and metamyelocytes) > 1% indicates that a LEFT SHIFT is Present. Performed By: #### L 503.7505, L500.2500, L100.0100 #### [facility] [address] [place], [address] Lymphocytes/100 WBC (Bld) 31.0 % Normal 19-41 [facility] Comment on above: Performed By: #### L 503.7505, L500.2500, L100.0100 #### [facility] [address] [place], [address] MCH (RBC) [Entitic mass] 30.0 pg Normal 27.0-32.0 [facility] Comment on above: Performed By: #### L 503.7505, L500.2500, L100.0100 #### [facility] [address] [place], [address] MCHC (RBC) [Mass/Vol] 32.9 g/dL Normal 32-36 [facility] Comment on above: Performed By: #### L 503.7505, L500.2500, L100.0100 #### [facility] [address] [place], [address] MCV (RBC) [Entitic vol] 90.9 fL Normal 81-99 [facility] Comment on above: Performed By: #### L 503.7505, L500.2500, L100.0100 #### [facility] [address] [place], [address] Monocytes/100 WBC (Bld) 10.6 % High 0-10 [facility] Comment on above: Performed By: #### L 503.7505, L500.2500, L100.0100 #### [facility] [address] [place] [place], [address] Neutrophils/100 WBC (Bld) 55.9 % Normal 47-70 [facility] Comment on above: Performed By: #### L 503.7505, L500.2500, L100.0100 #### [facility] [address] [place], [address] Nucleated RBC (Bld) [#/Vol] 0 10*3/uL Normal 0-5 [facility] Comment on above: Performed By: #### L 503.7505, L500.2500, L100.0100 #### [facility] [address] [place], [address] Platelet mean volume (Bld) [Entitic vol] 11.9 fL Normal 6.2-12.0 [facility] Comment on above: Performed By: #### L 503.7505, L500.2500, L100.0100 #### [facility] [address] [place], [address] Platelets (Bld) [#/Vol] 205 10*3/uL Normal 150-450 [facility] Comment on above: Performed By: #### L 503.7505, L500.2500, L100.0100 #### [facility] [address] [place], [address] RBC (Bld) [#/Vol] 4.74 10*6/uL Normal 4.2-5.[address] [facility] Comment on above: Performed By: #### L 503.7505, L500.2500, L100.0100 #### [facility] [address] [place], [address] RDW SD 43.3 fl Normal 35.1-43.9 [facility] Comment on above: Performed By: #### L 503.7505, L500.2500, L100.0100 #### [facility] [address] [place], [address] WBC (Bld) [#/Vol] 6.8 10*3/uL Normal 4.4-11.0 [facility] Comment on above: Performed By: #### L 503.7505, L500.2500, L100.0100 #### [facility] [address] [place], [address] Carbon dioxide, total [Moles /volume] in Central venous bloodOrdered By: Joseph Mccracken on 12-26-2024 CO2 [Moles/Vol] 25.2 mmol/L 21.0-32.0 [facility] Cardiology Visit Reporton Cardiology Visit Report [facility] [address] [place] [address] OFFICE VISIT Date of Service: 12/26/24 MR#: [id number] Acct: [id number] Name: BRENDA CORREA Rep #: [id number] : 1960 Provider: JESUS MANUEL vargas Age/Sex: 64/F Location: [facility] [place] Status: Signed HPI HPI History of Present Illness Details: Pleasant 64-year-old lady who presented to the emergency room in September of 2019 with a right lower extremity DVT as well as a right-sided pulmonary embolism. She was diagnosed as having a cardiomyopathy as well and after an echocardiogram was performed which demonstrated an ejection fraction of 10% she was sent to [facility] where she underwent cardiac catheterization with demonstrated no obstructive coronary disease, a cardiac MRI was performed which demonstrated a slowly enlarged left ventricle with an estimated ejection fraction of 14. Natruretic peptide was also elevated she was treated with intravenous Lasix, p.o. Lasix and subsequently losartan and beta-dao. She was subsequently transitioned onto an ARNI which she has tolerated. She is also been on an SGLT2 inhibitor which she has tolerated her ejection fraction on last evaluation was noted to be approximately 40%. She denies chest, arm, jaw, or neck discomfort. She denies palpitations. She denies bilateral lower extremity edema. She denies claudication. She states shortness of breath with activity. She noted this walking uphill. She denies shortness of breath at rest, orthopnea, or PND. She denies chronic cough. She denies significant, sudden weight gain. She denies lightheadedness, dizziness, near-syncope, or syncope. She denies blood in urine, blood in stool, or epistaxis. He denies fever with chills. She denies myalgia. She denies fatigue. Her exercise level has remained stable. Intake Vital Signs 01/04/24 09:59 12/26/24 11:10 Height 5 ft 4 in 5 ft 4 in Weight: 155 lb 167 lb BMI 26.6 28.6 BP 108/66 105/61 Blood Pressure Location Lt brachial Position Sitting Respiration 16 Pulse 53 L 61 Pulse Source Monitor Intake Visit Reasons: 1 Y FU Allergies No Known Allergies Allergy (Verified 01/04/24 10:00) Ejection fraction %: 45 PFS Medical History COVID-19 (02/16/21) Dyspnea on exertion Right ventricular systolic dysfunction Right ventricular dilation IBS (irritable bowel syndrome) Obesity Chronic systolic (congestive) heart failure Non-ischemic cardiomyopathy Deep vein thrombosis of right lower limb (10/12/19) Pulmonary embolism (10/12/19) Surgical History History of left heart catheterization (10/20/19) Family History Grandmother Heart disease NICM Brother Heart disease NICM Father Heart disease [place]/Heart Failure Social History Smoking Status: Former smoker how long ago did patient quit smokin years ago alcohol intake: never substance use type: does not use caffeine: Yes Type: coffee Number of servings: 1 ROS Const Const: Negative for fatigue, weakness, headache(s) or frequent falls Eyes Eyes: Negative for blurry vision ENT ENT: Negative for headache(s), dizziness or Nosebleed/epistaxis Cardio Chest Pain: No Palpitations: No Edema: None Muscle aches with walking: None Resp Respiratory: Positive for SOB with activity; Negative for SOB at rest or SOB orthopnea SOB lying down GI GI: Negative nausea, vomiting, heartburn, bright, red blood in stools or black,tarry stools : Negative for hematuria Musc Musc: Negative for muscle aches/ myalgia Skin Skin: Negative non-healing lesions or rash Neuro Neuro: Negative for dizziness, lightheadedness, near syncope, syncope, frequent falls, headache(s), weakness or blurry vision Endo Endo: Negative for fatigue Allergy Allergy/Immunology: Negative for rash Cardiology Exam Const Appearance: cooperative, healthy appearing, comfortable and no acute distress Nutritional Appearance: well nourished and overweight Orientation: alert, awake and oriented x3 Head Head: normal to inspection Ears: hearing grossly normal bilaterally Nose: external nose normal Face and Sinus: face symmetric Mouth: moist mucous membranes Eyes General: appearance normal, both eyes and all related structures Eyelids: eyelids normal EOM: EOM intact bilaterally Neck Neck: normal visual inspection and no JVD Carotids: normal carotid upstroke Chest Chest inspection: normal inspection of the chest, symmetric chest movement and normal respiratory effort; Negative cough Auscultation: Bilateral: Clear to Auscultation Cardio Rate: regular (more content not included)... Normal [facility] Chloride assayOrdered By: Ellyn Mccracken on 12-26-2024 Chloride [Moles/Vol] 102 mmol/L 98-108 [facility] Eosinophil percentageOrdered By: Joseph Mccracken on 12-26-2024 Eosinophils/100 WBC (Bld) 1.5 % 0-5 [facility] Erythrocyte distribution wid th ratioOrdered By: Joseph Mccracken on 12-26-2024 Erythrocyte distribution width (RBC) [Ratio] 12.9 % 11.6-14.6 [facility] Erythrocyte distribution wid th standard deviationOrdered By: Joseph Mccracken on 12-26-2024 Erythrocyte distribution width (RBC) [Ratio] 43.3 fl 35.1-43.9 [facility] Glomerular filtration rate ( GFR) estimation/1.73 sq m using serum, plasma, or whole bOrdered By: Joseph Mccracken on 12-26-2024 GFR/1.73 sq M.predicted among non-blacks MDRD (S/P/Bld) [Vol rate/Area] 67 mL/min/{1.73_m2} >60 [facility] Comment on above: mL/min/1.73m2 CKD-EP I Creatinine Equation (2020) Hematocrit Auto (Bld) [Volum e fraction]Ordered By: Joseph Mccracken on 12-26-2024 Hematocrit (Bld) [Volume fraction] 43.1 % 37-47 [facility] Hemoglobin measurementOrdere d By: Joseph Mccracken on 12-26-2024 Hemoglobin (Bld) [Mass/Vol] 14.2 g/dL 12.0-15.0 [facility] Immature granulocytes/100 WB C Auto (Bld)Ordered By: Joseph Mccracken on 12-26-2024 Immature granulocytes/100 WBC (Bld) 0.100 % 0.0-0.9 [facility] Comment on above: IG% - Immature Granu locytes (promyelocytes, myelocytes and metamyelocytes) > 1% indicates that a LEFT SHIFT is Present. MCV (mean corpuscular volume ) determinationOrdered By: Joseph Mccracken on 12-26-2024 MCV (RBC) [Entitic vol] 90.9 fL 81-99 [facility] Mean corpuscular hemoglobin (MCH) determinationOrdered By: Joseph Mccracken on 12-26-2024 MCH (RBC) [Entitic mass] 30.0 pg 27.0-32.0 [facility] Mean corpuscular hemoglobin concentration (MCHC) determinationOrdered By: Joseph Mccracken 12-26-2024 MCHC (RBC) [Mass/Vol] 32.9 g/dL 32-36 [facility] Mean platelet volume determi nationOrdered By: Joseph Mccracken on 12-26-2024 Platelet mean volume (Bld) [Entitic vol] 11.9 fL 6.2-12.0 [facility] Monocyte percentageOrdered B y: Joseph Mccracken on 12-26-2024 Monocytes/100 WBC (Bld) 10.6 % High 0-10 [facility] Natriuretic peptide.B prohor giulia N-Terminal [Mass/volume] in Serum or PlasmaOrdered By: Joseph Mccracken on 12-26-2024 Natriuretic peptide.B prohormone N-Terminal [Mass/Vol] 51 pg/mL <900 [facility] Comment on above: Heart Failure Unlike ly: < 300 pg/mLHeart Failure Likely< 50 Years: > 450 pg/mL50-75 Years: > 900 pg/mL>75 Years: > 1800 pg/mL Neutrophil percentageOrdered By: Joseph Mccracken on 12-26-2024 Neutrophils/100 WBC (Bld) 55.9 % 47-70 [facility] Nucleated red blood cell per centageOrdered By: Joseph Mccracken on 12-26-2024 Nucleated RBC/100 WBC (Bld) [Ratio] 0 % 0-5 [facility] Platelet countOrdered By: Ellyn Mccracken on 12-26-2024 Platelets (Bld) [#/Vol] 205 10*3/uL 150-450 [facility] Potassium measurement (mass/ volume)Ordered By: Joseph Mccracken on 12-26-2024 Potassium (Unsp spec) [Mass/Vol] 4.3 mmol/L 3.3-5.1 [facility] Pro- Brain NATRIURETIC PEPTI Yeni 12-26-2024 Natriuretic peptide B (Bld) [Mass/Vol] 51 pg/mL Normal <=900 [facility] Comment on above: Result Comment: Hear t Failure Unlikely: < 300 pg/mL Heart Failure Likely < 50 Years: > 450 pg/mL 50-75 Years: > 900 pg/mL >75 Years: > 1800 pg/mL Performed By: #### L 503.7505, L500.2500, L100.0100 #### [facility] Laboratory [address] [place], [address] RBC Auto (Bld) [#/Vol]Ordere d By: Joseph Mccracken on 12-26-2024 RBC (Bld) [#/Vol] 4.74 10*6/uL 4.2-5.[address] [facility] Serum creatinine measurement (mass/volume)Ordered By: Joseph Mccracken on 12-26-2024 Creatinine [Mass/Vol] 0.95 mg/dL 0.70-1.20 [facility] Serum glucose measurement (m ass/volume)Ordered By: Joseph Mccracken on 12-26-2024 Glucose [Mass/Vol] 86 mg/dL 70-99 [facility] Serum or plasma calcium kathryn urement (mass/volume)Ordered By: Joseph Mccracken on 12-26-2024 Calcium [Mass/Vol] 9.0 mg/dL 7.6-11.0 [facility] Serum or plasma urea nitroge n measurement (mass/volume)Ordered By: Joseph Mccracken on 12-26-2024 Urea nitrogen [Mass/Vol] 20 mg/dL High 4-19 [facility] Sodium levelOrdered By: Joseph Kaykay on 12-26-2024 Sodium [Moles/Vol] 138 mmol/L 133-145 [facility] White blood cell (WBC) count Ordered By: Joseph Kaykay on 12-26-2024 WBC (Bld) [#/Vol] 6.8 10*3/uL 4.4-11.0 [facility] 12 Lead EKGon 01-18-2024 12 Lead EKG [facility] Cardiovascular Services [address] [place] [address] 12 Lead EKG 01/18/24 1242 MR#: [id number] Acct: [id number] Name: BRENDA CORREA Rep #: [id number] : 1960 63 From: Hernan Calzada MD Attending Dr: Dr. Esteban Salgado MD Status: REG C Ordering Dr: Esteban Salgado MD Date: 01/18/24 Location: [facility] Sex: F C Admitted: Test Reason : DILATED CARDIOMOPATH Blood Pressure : */* mmHG Vent. Rate : 54 BPM Atrial Rate : 54 BPM P-R Int : 142 ms QRS Dur : 72 ms QT Int : 430 ms P-R-T Axes : 70 -17 262 degrees QTcB Int : 407 ms Sinus bradycardia Low voltage QRS ST T wave abnormality, consider inferior ischemia ST T wave abnormality, consider anterolateral ischemia Abnormal ECG Confirmed by Hernan Calzada ([id number]), web editor MELISSA CONNELL ([id number]) on 01/19/2024 5:55:40 AM Referred By: Esteban Salgado Confirmed By: Hernan Calzada 01/19/24 0555 Date Hernan Calzada MD CC: Dr. Davina Meredith MD; Dr. Esteban Salgado MD Signed Normal [facility] Echo Completeon 01-18-2024 Echo Complete [facility] [address] [place] [address] Echo Complete 01/18/24 1252 MR#: [id number] Acct: [id number] Name: BRENDA CORREA Rep #: [id number] : 1960 63 From: Esteban Salgado MD Attending Dr: Dr. Esteban Salgado MD Status: GAYATHRI JENKINS Ordering Dr: Esteban Salgado MD Date: 01/18/24 Location: [facility] Sex: F C Admitted: Reason For Study: CARDIOMYOPATHY Procedure This was a 2D Doppler, Color Flow transthoracic echocardiogram. Myocardial strain analysis was performed in this exam to aid in the assessment of cardiac function. Exam performed in department. Left Ventricle Normal LV size. The left ventricular ejection fraction is 45 %. Stage 1 diastolic dysfunction. There is mild to moderate global hypokinesis of the left ventricle. Right Ventricle Normal RV size. Normal systolic function. Atria Normal left atrium. Normal right atrium. Mitral Valve Normal mitral valve. Mild (1+) eccentric mitral valve insufficiency. Tricuspid Valve Normal tricuspid valve. Mild (1+) tricuspid valve insufficiency. Pulmonary artery systolic pressure is 34 mmHg. Aortic Valve Trisinus/trileaflet aortic valve. Pulmonic Valve Normal pulmonic valve. Mild (1+) pulmonic valve insufficiency. Great Vessels Normal aortic root. The pulmonary artery is normal size. Inferior vena cava collapse with sniff. Pericardium/Pleural Trivial pericardial effusion. MMode/2D Measurements Calculations LVIDd: 5.3 cm IVSd: 0.77 cm LVOT diam: 2.2 cm LVIDs: 4.1 cm LVPWd: 0.67 cm LVOT area: 3.7 cm2 RVDd: 3.1 cm FS: 22.9 % _ asc Aorta Diam: 3.2 cm LAV(MOD-bp): 37.4 ml LVAd ap4: 28.6 cm2 LAV(MOD-bp) Indexed: 22.2 ml/m2 LVLd ap4: 7.3 cm LAV(MOD-sp2): 34.5 ml EDV(MOD-sp4): 90.9 ml LAV(MOD-sp4): 40.1 ml EDV(sp4-el): 95.0 ml LVAs ap4: 18.6 cm2 LVLs ap4: 6.3 cm ESV(MOD-sp4): 45.2 ml ESV(sp4-el): 46.3 ml EF(MOD-sp4): 50.2 % EF(sp4-el): 51.3 % _ LVAd ap2: 27.5 cm2 SV(MOD-sp4): 45.7 ml SV(MOD-sp2): 43.5 ml LVLd ap2: 7.5 cm SI(MOD-sp4): 27.1 ml/m2 SI(MOD-sp2): 25.8 ml/m2 EDV(MOD-sp2): 82.8 ml EDV(sp2-el): 85.7 ml LVAs ap2: 17.4 cm2 LVLs ap2: 6.6 cm ESV(MOD-sp2): 39.4 ml ESV(sp2-el): 39.2 ml EF(MOD-sp2): 52.5 % _ SV(sp4-el): 48.7 ml Ao sinus diam: 3.[address] Junction: 2.5 cm _ LA dimension(2D): 3.8 cm LA A4 area: 14.8 cm2 RA A4 area: 13.2 cm2 _ TAPSE: 2.3 cm Time Measurements MV dec time: 0.18 sec Doppler Measurements Calculations MV E max mario: 57.1 cm/sec Lat Peak E' Mario: 8.0 cm/sec Med Peak E' Mario: 5.6 cm/sec MV A max mario: 58.4 cm/sec E/E' lat: 7.2 E/E' med: 10.1 MV E/A: 0.98 _ MV dec slope: 318.2 cm/sec2 Ao V2 max: 80.6 cm/sec LV V1 max: 66.9 cm/sec Ao max P.6 mmHg LV V1 max P.8 mmHg Ao V2 mean: 54.1 cm/sec LV V1 mean P.3 mmHg Ao mean P.4 mmHg LV V1 mean: 55.9 cm/sec Ao V2 VTI: 19.1 cm LV V1 VTI: 16.2 cm AV (velocity ratio): 0.84 JENNIFER(I,D): 3.2 cm2 JENNIFER(V,D): 3.1 cm2 _ SV(LVOT): 60.4 ml PA V2 max: 67.8 cm/sec TR max mario: 272.8 cm/sec PA max PG (full): 1.1 mmHg TR max P.8 mmHg ECHO/Echo Complete Interpretation Summary The left ventricular ejection fraction is 45 %. Normal LV size. Stage 1 diastolic dysfunction. Pulmonary artery systolic pressure is 34 mmHg. The global longitudinal strain is moderately abnormal. Ordering Physician: Esteban Salgado Referring Physician: Davina Meredith M.D. Performed By: Ria Haas RDCS 01/18/241749 Date Esteban Salgado MD CC: Dr. Davina Meredith MD; Dr. Esteban Salgado MD Date Dictated: 01/18/24 1252 Date Transcribed: 01/18/241749 Improvement Advisor: Signed Normal [facility] Basophil percentageOrdered B y: Joseph Mccracken on 06-24-2023 Bilirubin [Mass/Vol] 0.50 mg/dL 0.20-1.00 [facility] Comment on above: For patients on eltr ombopag therapy, use of Dimension [place] TBIL is not recommended. Chloride [Moles/Vol] 108 mmol/L 98-107 [facility] Glucose [Mass/Vol] 99 mg/dL 74-106 [facility] Potassium [Moles/Vol] 4.4 mmol/L 3.5-5.1 [facility] Protein [Mass/Vol] 7.2 g/dL 6.4-8.2 [facility] Sodium [Moles/Vol] 139 mmol/L 136-145 [facility] Laboratory - Chemistry and C hemistry - challengeOrdered By: Joseph Mccrcaken on 06-24-2023 Albumin/Globulin [Mass ratio] 1.1 {ratio} 0.9-2.4 [facility] ALP [Catalytic activity/Vol] 57 U/L 45-117 [facility] ALT [Catalytic activity/Vol] 21 U/L 13-56 [facility] CO2 [Moles/Vol] 29.0 mmol/L 21.0-32.0 [facility] Globulin (S) [Mass/Vol] 3.5 g/dL 2.2-4.2 [facility] Urea nitrogen/Creatinine [Mass ratio] 14.9 mg/mg 10-20 [facility] No Panel InformationOrdered By: Joseph Mccracken on 06-24-2023 Estimated GFR (MDRD) Amer 71 mL/min >60 [facility] Comment on above: GFR Calc Estimated GFR (MDRD) Non-Af Amer 59 mL/min >60 [facility] Comment on above: Non- GFR Calc Serum or plasma calcium kathryn urement (mass/volume)Ordered By: Joseph Mccracken on 06-24-2023 Calcium [Mass/Vol] 9.2 mg/dL 8.5-10.1 [facility] Serum or plasma creatinine m easurement (mass/volume)Ordered By: Joseph Mccracken on 06-24-2023 Creatinine [Mass/Vol] 1.01 mg/dL 0.55-1.02 [facility] Comment on above: The validity of the calculated GFR & GFRAA in patients over 70 years has not been determined. Clinical correlation is essential. Serum or plasma urea nitroge n measurement (mass/volume)Ordered By: Joseph Mccracken on 06-24-2023 Urea nitrogen [Mass/Vol] 15 mg/dL 7-18 [facility] Thin prep Papanicolaou smear with manual screeningOrdered By: Joseph Mccracken on 06-24-2023 Thin prep Papanicolaou smear with manual screening 3.7 g/dL 3.2-5.0 [facility] Thin prep Papanicolaou smear with manual screening 18 U/L 15-37 [facility] Thin prep Papanicolaou smear with manual screening 2 5-15 [facility] Basophil percentageOrdered B y: Joseph Mccracken on 03-10-2023 Chloride [Moles/Vol] 110 mmol/L 98-107 [facility] Glucose [Mass/Vol] 86 mg/dL 74-106 [facility] Potassium [Moles/Vol] 4.1 mmol/L 3.5-5.1 [facility] Sodium [Moles/Vol] 142 mmol/L 136-145 [facility] Laboratory - Chemistry and C hemistry - challengeOrdered By: Joseph Mccracken on 03-10-2023 CO2 [Moles/Vol] 27.0 mmol/L 21.0-32.0 [facility] Urea nitrogen/Creatinine [Mass ratio] 18.5 mg/mg 10-20 [facility] No Panel InformationOrdered By: Joseph Mccracken on 03-10-2023 Estimated GFR (MDRD) Amer 85 mL/min >60 [facility] Comment on above: GFR Calc Estimated GFR (MDRD) Non-Af Amer 71 mL/min >60 [facility] Comment on above: Non- GFR Calc Serum or plasma calcium kathryn urement (mass/volume)Ordered By: Joseph Mccracken on 03-10-2023 Calcium [Mass/Vol] 9.2 mg/dL 8.5-10.1 [facility] Serum or plasma creatinine m easurement (mass/volume)Ordered By: Joseph Mccracken on 03-10-2023 Creatinine [Mass/Vol] 0.86 mg/dL 0.55-1.02 [facility] Comment on above: The validity of the calculated GFR & GFRAA in patients over 70 years has not been determined. Clinical correlation is essential. Serum or plasma urea nitroge n measurement (mass/volume)Ordered By: Joseph Mccracken on 03-10-2023 Urea nitrogen [Mass/Vol] 16 mg/dL 7-18 [facility] Thin prep Papanicolaou smear with manual screeningOrdered By: Joseph Mccracken on 03-10-2023 Thin prep Papanicolaou smear with manual screening 5 - [facility] Absolute lymphocyte countOrd ered By: Dr. Meredith on 08-17-2022 Lymphocytes Auto (Unsp spec) [#/Vol] 1.74 10*3/uL 0.83-4.51 [facility] Basophil percentageOrdered B y: Dr. Meredith on 08-17-2022 Basophils/100 WBC (Bld) 0.6 % 0-1 [facility] Chloride [Moles/Vol] 108 mmol/L 98-107 [facility] Eosinophils/100 WBC (Bld) 1.5 % 0-5 [facility] Glucose [Mass/Vol] 83 mg/dL 74-106 [facility] Neutrophils (Bld) [#/Vol] 4.3 10*3/uL 2.0-7.7 [facility] Neutrophils/100 WBC (Bld) 62.7 % 47-70 [facility] Potassium [Moles/Vol] 3.9 mmol/L 3.5-5.1 [facility] Sodium [Moles/Vol] 140 mmol/L 136-145 [facility] WBC (Bld) [#/Vol] 6.8 10*3/uL 4.4-11.0 [facility] Blood erythrocytes count (nu mber/volume)Ordered By: Dr. Meredith on 08-17-2022 RBC (Bld) [#/Vol] 4.77 10*6/uL 4.2-5.[address] [facility] Blood hemoglobin measurement (mass/volume)Ordered By: Dr. Meredith on 08-17-2022 Hemoglobin (Bld) [Mass/Vol] 14.7 g/dL 12.0-15.0 [facility] Blood lymphocytes/100 leukoc ytesOrdered By: Dr. Meredith on 08-17-2022 Lymphocytes/100 WBC (Bld) 25.6 % 19-41 [facility] Blood monocytes/100 leukocyt esOrdered By: Dr. Meredith on 08-17-2022 Monocytes/100 WBC (Bld) 9.3 % 0-10 [facility] Blood platelet mean volumeOr dered By: Dr. Meredith on 08-17-2022 Platelet mean volume (Bld) [Entitic vol] 12.2 fL 6.2-12.0 [facility] Determination of erythrocyte mean corpuscular volume (MCV)Ordered By: Dr. Meredith on 08-17-2022 MCV (RBC) [Entitic vol] 97.1 fL 81-99 [facility] Hematocrit Auto (Bld) [Volum e fraction]Ordered By: Dr. Meredith on 08-17-2022 Hematocrit (Bld) [Volume fraction] 46.3 % 37-47 [facility] Laboratory - Chemistry and C hemistry - challengeOrdered By: Dr. Meredith on 08-17-2022 CO2 [Moles/Vol] 28.0 mmol/L 21.0-32.0 [facility] Magnesium [Mass/Vol] 2.3 mg/dL 1.6-2.6 [facility] Urea nitrogen/Creatinine [Mass ratio] 16.5 mg/mg 10-20 [facility] Laboratory - Hematology and Cell countsOrdered By: Dr. Meredith on 08-17-2022 Erythrocyte distribution width (RBC) [Entitic vol] 45.1 fL 35.1-43.9 [facility] Erythrocyte distribution width (RBC) [Ratio] 12.6 % 11.6-14.6 [facility] Immature granulocytes/100 WBC (Bld) 0.300 % 0.0-0.9 [facility] Comment on above: IG% - Immature Granu locytes (promyelocytes, myelocytes and metamyelocytes) > 1% indicates that a LEFT SHIFT is Present. MCH (RBC) [Entitic mass] 30.8 pg 27.0-32.0 [facility] Nucleated RBC/100 WBC (Bld) [Ratio] 0 % 0-5 [facility] MCHC Auto (RBC) [Mass/Vol]Or dered By: Dr. Meredith on 08-17-2022 MCHC (RBC) [Mass/Vol] 31.7 g/dL 32-36 [facility] No Panel InformationOrdered By: Dr. Meredith on 08-17-2022 Estimated GFR (MDRD) Amer 81 mL/min >60 [facility] Comment on above: GFR Calc Estimated GFR (MDRD) Non-Af Amer 67 mL/min >60 [facility] Comment on above: Non- GFR Calc Thyroid Stimulating Hormone (TSH) 2.50 uIU/mL 0.358-3.74 [facility] Vitamin D 25-Hydroxy 46.7 ng/mL [facility] Comment on above: Vitamin D 25(OH) Sta tus Range Deficiency <20 ng/mL (50nmol/L) Insufficiency 20 - 30 ng/mL (50 - 75 nmol/L) Sufficiency 30 - 100 ng/mL (75 - 250 nmol/L) Toxicity >100 ng/mL (>250 nmol/L) Platelets bldOrdered By: Dr. Meredith on 08-17-2022 Platelets (Bld) [#/Vol] 169 10*3/uL 150-450 [facility] Serum or plasma calcium kathryn urement (mass/volume)Ordered By: Dr. Meredith on 08-17-2022 Calcium [Mass/Vol] 8.6 mg/dL 8.5-10.1 [facility] Serum or plasma creatinine m easurement (mass/volume)Ordered By: Dr. Meredith on 08-17-2022 Creatinine [Mass/Vol] 0.91 mg/dL 0.55-1.02 [facility] Comment on above: The validity of the calculated GFR & GFRAA in patients over 70 years has not been determined. Clinical correlation is essential. Serum or plasma urea nitroge n measurement (mass/volume)Ordered By: Dr. Meredith on 08-17-2022 Urea nitrogen [Mass/Vol] 15 mg/dL 7-18 [facility] Thin prep Papanicolaou smear with manual screeningOrdered By: Dr. Meredith on 08-17-2022 Thin prep Papanicolaou smear with manual screening 4 5-15 [facility] Basophil percentageOrdered B y: Joseph Mccracken on 05-25-2022 Chloride [Moles/Vol] 108 mmol/L 98-107 [facility] Glucose [Mass/Vol] 85 mg/dL 74-106 [facility] Potassium [Moles/Vol] 3.8 mmol/L 3.5-5.1 [facility] Sodium [Moles/Vol] 143 mmol/L 136-145 [facility] Laboratory - Chemistry and C hemistry - challengeOrdered By: Joseph Mccracken on 05-25-2022 CO2 [Moles/Vol] 29.0 mmol/L 21.0-32.0 [facility] Urea nitrogen/Creatinine [Mass ratio] 16.0 mg/mg 10-20 [facility] No Panel InformationOrdered By: Joseph Mccracken on 05-25-2022 Estimated GFR (MDRD) Amer 68 mL/min >60 [facility] Comment on above: GFR Calc Estimated GFR (MDRD) Non-Af Amer 56 mL/min >60 [facility] Comment on above: Non- GFR Calc Serum or plasma calcium kathryn urement (mass/volume)Ordered By: Joseph Mccracken on 05-25-2022 Calcium [Mass/Vol] 8.7 mg/dL 8.5-10.1 [facility] Serum or plasma creatinine m easurement (mass/volume)Ordered By: Joseph Mccracken on 05-25-2022 Creatinine [Mass/Vol] 1.06 mg/dL 0.55-1.02 [facility] Comment on above: The validity of the calculated GFR & GFRAA in patients over 70 years has not been determined. Clinical correlation is essential. Serum or plasma urea nitroge n measurement (mass/volume)Ordered By: Joseph Mccracken on 05-25-2022 Urea nitrogen [Mass/Vol] 17 mg/dL 7-18 [facility] Thin prep Papanicolaou smear with manual screeningOrdered By: Joseph Mccracken on 05-25-2022 Thin prep Papanicolaou smear with manual screening 6 5-15 [facility] Absolute lymphocyte countOrd ered By: Dr. Meredith on 02-16-2022 Lymphocytes Auto (Unsp spec) [#/Vol] 2.37 10*3/uL 0.83-4.51 [facility] Basophil percentageOrdered B y: Dr. Meredith on 02-16-2022 Basophils/100 WBC (Bld) 0.7 % 0-1 [facility] Bilirubin [Mass/Vol] 0.40 mg/dL 0.20-1.00 [facility] Comment on above: For patients on eltr ombopag therapy, use of Dimension [place] TBIL is not recommended. Chloride [Moles/Vol] 105 mmol/L 98-107 [facility] Cholesterol [Mass/Vol] 217 mg/dL <200 [facility] Comment on above: <200 mg/dL Desirable 200-240 mg/dL Borderline >240 mg/dL High Risk Eosinophils/100 WBC (Bld) 1.2 % 0-5 [facility] Glucose [Mass/Vol] 91 mg/dL 74-106 [facility] Neutrophils (Bld) [#/Vol] 5.1 10*3/uL 2.0-7.7 [facility] Neutrophils/100 WBC (Bld) 60.8 % 47-70 [facility] Potassium [Moles/Vol] 4.0 mmol/L 3.5-5.1 [facility] Protein [Mass/Vol] 6.6 g/dL 6.4-8.2 [facility] Sodium [Moles/Vol] 141 mmol/L 136-145 [facility] Triglyceride [Mass/Vol] 210 mg/dL <199 [facility] Comment on above: The drugs N-Acetylcy steine and Metamizole may falsely depress this assay.Serum Triglycerides Reference Interval Normal <150 mg/dL Borderline high 150 - 199 mg/dL High 200 - 499 mg/dL Very High > or = 500 mg/dL WBC (Bld) [#/Vol] 8.5 10*3/uL 4.4-11.0 [facility] Blood erythrocytes count (nu mber/volume)Ordered By: Dr. Meredith on 02-16-2022 RBC (Bld) [#/Vol] 4.31 10*6/uL 4.2-5.[address] [facility] Blood hemoglobin measurement (mass/volume)Ordered By: Dr. Meredith on 02-16-2022 Hemoglobin (Bld) [Mass/Vol] 13.7 g/dL 12.0-15.0 [facility] Blood lymphocytes/100 leukoc ytesOrdered By: Dr. Meredith on 02-16-2022 Lymphocytes/100 WBC (Bld) 28.0 % 19-41 [facility] Blood monocytes/100 leukocyt esOrdered By: Dr. Meredith on 02-16-2022 Monocytes/100 WBC (Bld) 9.1 % 0-10 [facility] Blood platelet mean volumeOr dered By: Dr. Meredith on 02-16-2022 Platelet mean volume (Bld) [Entitic vol] 12.1 fL 6.2-12.0 [facility] Determination of erythrocyte mean corpuscular volume (MCV)Ordered By: Dr. Meredith on 02-16-2022 MCV (RBC) [Entitic vol] 96.3 fL 81-99 [facility] Hematocrit Auto (Bld) [Volum e fraction]Ordered By: Dr. Meredith on 02-16-2022 Hematocrit (Bld) [Volume fraction] 41.5 % 37-47 [facility] Laboratory - Chemistry and C hemistry - challengeOrdered By: Dr. Meredith on 02-16-2022 ALP [Catalytic activity/Vol] 57 U/L 45-117 [facility] ALT [Catalytic activity/Vol] 27 U/L 13-56 [facility] CO2 [Moles/Vol] 30.0 mmol/L 21.0-32.0 [facility] Globulin (S) [Mass/Vol] 2.9 g/dL 2.2-4.2 [facility] Urea nitrogen/Creatinine [Mass ratio] 14.6 mg/mg 10-20 [facility] Laboratory - Hematology and Cell countsOrdered By: Dr. Meredith on 02-16-2022 Erythrocyte distribution width (RBC) [Entitic vol] 44.6 fL 35.1-43.9 [facility] Erythrocyte distribution width (RBC) [Ratio] 12.5 % 11.6-14.6 [facility] Immature granulocytes/100 WBC (Bld) 0.200 % 0.0-0.9 [facility] Comment on above: IG% - Immature Granu locytes (promyelocytes, myelocytes and metamyelocytes) > 1% indicates that a LEFT SHIFT is Present. MCH (RBC) [Entitic mass] 31.8 pg 27.0-32.0 [facility] Nucleated RBC/100 WBC (Bld) [Ratio] 0 % 0-5 [facility] MCHC Auto (RBC) [Mass/Vol]Or dered By: Dr. Meredith on 02-16-2022 MCHC (RBC) [Mass/Vol] 33.0 g/dL 32-36 [facility] No Panel InformationOrdered By: Dr. Meredith on 02-16-2022 Estimated GFR (MDRD) Amer 76 mL/min >60 [facility] Comment on above: GFR Calc Estimated GFR (MDRD) Non-Af Amer 62 mL/min >60 [facility] Comment on above: Non- GFR Calc Thyroid Stimulating Hormone (TSH) 1.74 uIU/mL 0.358-3.74 [facility] [facility] Plate[facility] bldOrdered By: Dr. Meredith on 02-16-2022 Platelets (Bld) [#/Vol] 208 10*3/uL 150-450 [facility] Serum or plasma albumin kathryn urement (mass/volume)Ordered By: Dr. Meredith on 02-16-2022 Albumin [Mass/Vol] 3.7 g/dL 3.2-5.0 [facility] Serum or plasma albumin/glob ulin mass ratioOrdered By: Dr. Meredith on 02-16-2022 Albumin/Globulin [Mass ratio] 1.3 {ratio} 0.9-2.4 [facility] Serum or plasma calcium kathryn urement (mass/volume)Ordered By: Dr. Meredith on 02-16-2022 Calcium [Mass/Vol] 8.8 mg/dL 8.5-10.1 [facility] Serum or plasma cholesterol in HDL measurement (mass/volume)Ordered By: Dr. Meredith on 02-16-2022 Cholesterol in HDL [Mass/Vol] 58 mg/dL >40 [facility] Comment on above: The drugs N-Acetylcy steine and Metamizole may falsely depress this assay. Reference Range HDL <40 mg/dL Low HDL Cholesterol HDL >or= 60 mg/dL High HDL Cholesterol Serum or plasma cholesterol in VLDL measurement (mass/volume)Ordered By: Dr. Meredith on 02-16-2022 Cholesterol in VLDL [Mass/Vol] 42 mg/dL 5-40 [facility] Serum or plasma creatinine m easurement (mass/volume)Ordered By: Dr. Meredith on 02-16-2022 Creatinine [Mass/Vol] 0.96 mg/dL 0.55-1.02 [facility] Comment on above: The validity of the calculated GFR & GFRAA in patients over 70 years has not been determined. Clinical correlation is essential. Serum or plasma low density lipoprotein (LDL) cholesterol measurement (mass/volume)Ordered By: Dr. Meredith on 02-16-2022 Cholesterol in LDL [Mass/Vol] 117 mg/dL 0-130 [facility] Serum or plasma urea nitroge n measurement (mass/volume)Ordered By: Dr. Meredith on 02-16-2022 Urea nitrogen [Mass/Vol] 14 mg/dL 7-18 [facility] Thin prep Papanicolaou smear with manual screeningOrdered By: Dr. Meredith on 02-16-2022 Thin prep Papanicolaou smear with manual screening 14 U/L 15-37 [facility] Thin prep Papanicolaou smear with manual screening 6 5-15 [facility] CNOVon 10-10-2019 CNOV Office Visit (FAMPWS) BRENDA CORREA ([id number]) 1960 F Date Time Provider Department 10/10/19 10:20 AM HENRY MITCHELL (JUAN MANUEL.HEATHER) [facility] During your visit today, we recorded the following information about you: Temperature Pulse Respiration Blood pressure 98.2 degrees 102/minute 16/minute 126/88 Weight 81.2 kg Henry Mitchell DNP.HEATHER, ROOF FITTER.BALANCING MACHINE OPERATOR 10/10/2019 11:49 AM Signed Chief Complaint Patient presents with: Recheck HPI Brenda Loreta Timothy is a 59 year old female who presents here today for f/u from related to blood pressure concerns. This is an established patient of Dr. James Lynne MD. This is a new patient to me. Denies any recent urgent care visits, ER visits or hospitalizations. States blood pressures have been elevated recently. Seen in urgent care clinic 2 days ago by Lita Cummins nurse practitioner for a pneumonia. Had chest x-ray completed. Was started on doxycycline. Instructed to follow-up with primary care she was noted to have an elevated blood pressure. Has not been seen within primary care for approximately 5 years. Her last primary care provider retired and then she just had not been sick or ill during that time. Denies any headache, chest pain or difficulty breathing. States she feels nasally congested some today. No fever or chills. States a family history of HTN and heart disease. She is unsure of the type of heart disease and heart issues that her family has had. Her brother is on the transplant list for a new heart. No previous diagnosis of hypertension. No previous consultations with cardiology. Past medical history, appointments, medications, allergies reviewed 10/10/2019 Previous Medical History PAST MEDICAL HISTORY Diagnosis Date - Irritable bowel syndrome - Other acne - Varicose veins of other sites Previous Surgical History PAST SURGICAL HISTORY Procedure Laterality Date - COLONOSCOP W/ OR W/O [facility] SPEC 07/07/1991 Colonoscopy - EGD W/O OR W/BRUSH/WASH 07/21/1991 EGD - LIGATE FALLOPIAN TUBE Bilateral 1988 Tubal ligation - PAST SURGICAL HISTORY OF N/A ingrown toe nails Family History FAMILY HISTORY Problem Relation Age of Onset - Heart Father - Hyperlipidemia Father - Cancer Mother Lung cancer - Hypertension Mother - Lipids Mother - Diabetes Maternal Grandmother - Heart Paternal Grandmother - Colon Cancer Paternal Grandfather - Heart Paternal Aunt - other (Other) Paternal Aunt glacoma - Heart disease Brother - No Known Problems Daughter - No Known Problems Daughter - No Known Problems Daughter Patient Allergies ALLERGIES Allergen Reactions - Erythromycin GI Upset Current Medications Current Outpatient Medications on File Prior to Visit Medication Sig - doxycycline monohydrate (MONODOX) 100 mg capsule Take 1 capsule by mouth twice daily for 10 days. - albuterol HFA (PROAIR HFA) 90 mcg/actuation inhaler Inhale 2 Puffs as instructed every 4 hours as needed. - nabumetone (RELAFEN) 750 mg tablet Take 1 tablet by mouth once daily. No current facility-administere d medications on file prior to visit. Social History Social History Tobacco Use - Smoking status: Former Smoker Packs/day: 2.00 Years: 15.00 Pack years: 30.00 Types: Cigarettes Last attempt to quit: 03/15/1997 Years since quittin.5 - Smokeless tobacco: Never Used Substance Use Topics - Alcohol use: No - Drug use: No Review of Symptoms GENERAL: No weight loss, malaise or fevers. No fatigue or night sweats. HEENT: Negative for frequent headaches NECK: Negative for lumps, pain, neck swelling, or swollen nodes RESPIRATORY: Negative for cough, wheezing, dyspnea or shortness of breath CARDIOVASCULAR: Negative for chest pain. Occ leg swelling GI: No nausea, vomiting, or diarrhea MUSCULOSKELETAL: Negative for generalized joint pain or muscle aches SKIN: Negative for lesions, rash, and itching Neuro: No lightheadedness or dizziness EXAM: BP 126/88 (BP Site: Right Arm, BP Position: Sitting, BP Cuff Size: Large Adult) Pulse 102 Temp 36.8 ?C (98.2 ?F) (Right Tympanic) Resp 16 Wt 81.2 kg (179 lb) LMP 04/21/2006 SpO2 99% BMI 30.73 kg/m? General Appearance: Well appearing, alert, in no acute distress, well-hydrated, well nourished.. Skin: Skin color, texture, turgor normal, no suspicious rashes or lesions. Head: Normocephalic, no masses, lesions, or abnormalities. Eyes: Anicteric sclera. Pupils are equally round and reactive to light. Ears: External ears normal, canals clear, TM's clear with adequate light reflex. Nose/Sinuses: Nares normal, septum midline, mucosa normal, no drainage or sinus tenderness. Oropharynx: Lips, mucosa, and tongue normal, teeth and gums normal, oropharynx nonreddened. Neck: Supple, no adenopathy; thyroid symmetric, normal size, no bruits. Lymph Nodes: No cervical lymphadenopathy, No supraclavicular lymphadenopathy Lungs: Lungs clear to auscultation. No wheezing, rhonchi, rales. Heart: RRR without murmur, gallop, or rubs. No ectopy. Normal S1 and S2. GI: Mild epigastric tenderness. No organomegaly. No rebound tenderness. Extremities: No deformities, edema, skin discoloration, clubbing or cyanosis. Good capillary refill. MSK: FROM of upper and lower extremities. No joint swelling or redness. Peripheral Pulses: Normal - radial and carotid 2+ Psych: Attitude: Cooperative, easily engaged in conversation Appearance: Normal, hygiene and grooming appropriate Affect: Euthymic (normal mood) Mental status: Alert, attentive. Speech is clear and fluent with good repetition, comprehension Gait/Stance: Posture is normal. Gait is steady with normal steps Health Maintenance List HEPATITIS C SCREENING due on 02/23/1978 HIV SCREENING due on 02/23/1978 SHINGRIX VACCINE(1 of 2) due on 02/23/2010 LIPID SCREEN due on 11/28/2014 MAMMOGRAM due on 03/27/2015 FECAL OCCULT BLOOD due on 03/27/2015 DTAP,TDAP,TD(2 - Td) due on 04/21/2016 DIABETES SCREEN due on 03/27/2017 PAP TESTING due on 10/06/2017 HPV TESTING due on 10/06/2017 INFLUENZA(1) due on 11/14/2019 Data reviewed Last 10 Encounter BP Readings: Date: BP: 10/10/2019 126/88 10/08/2019 122/96 03/27/2014 140/84 01/05/2013 104/76 11/03/2012 120/78 10/06/2012 110/74 06/05/2012 110/72 12/08/2011 120/78 11/04/2011 120/70 01/26/2011 140/80 BMI Readings from Last 10 Encounters: 10/10/19 : 30.73 kg/m? 10/08/19 : 32.61 kg/m? 03/27/14 : 32.10 kg/m? 01/05/13 : 30.73 kg/m? 11/03/12 : 30.73 kg/m? 10/06/12 : 30.38 kg/m? 06/05/12 : 31.76 kg/m? 12/08/11 : 32.44 kg/m? 11/04/11 : 31.93 kg/m? 01/26/11 : 31.07 kg/m? Last 10 Encounter Wt Readings: Date: Wt: 10/10/2019 81.2 kg (179 lb) 10/08/2019 86.2 kg (190 lb) 03/27/2014 84.8 kg (187 lb) 01/05/2013 81.2 kg (179 lb) 11/03/2012 81.2 kg (179 lb) 10/06/2012 80.3 kg (177 lb) 06/05/2012 83.9 kg (185 lb) 12/08/2011 85.7 kg (189 lb) 11/04/2011 84.4 kg (186 lb) 01/26/2011 82.1 kg (181 lb) Medication and allergy list reviewed, reconciled and updated 10/10/2019 At home blood pressure medication 10/08/2019 ?2:43 PM - Radiology, [place] In Impression IMPRESSION: Bibasilar stranding may represent atelectasis or scar. ?Question subtle patchy infiltrate at the right lower lung with trace pleural fluid or atelectasis. ?No overt pulmonary edema. Improvement Advisor: PEPE ? Transcribe Date/Time: Oct 08 2019 ?2:39P Dictated by : MARGIE CASTILLO MD This examination was interpreted and the report reviewed and electronically signed by: MARGIE CASTILLO MD on Oct 08 2019 ?2:41PM ?EST Results-Findings * * *Final Report* * * DATE OF EXAM: Oct 08 2019 ?2:32PM ? WOX ? 5291 ?- ?XR CHEST 2V FRONTAL/LAT ?/ PROCEDURE REASON: Cough ?? ? * * * * Physician Interpretation * * * * ?EXAMINATION: ?CHEST RADIOGRAPH (2 VIEW FRONTAL AND LATERAL) CLINICAL HISTORY: Cough MQ: ?[id number] EXAM DATE/TIME: ?10/08/2019 2:32 PM COMPARISON: ?There are no prior chest radiographs for comparison. RESULT: Lines, tubes, and devices: None. Lungs and pleura: Mild prominent interstitial stranding at both lung bases may be acute or chronic. ?Patchy airspace infiltrate in the light lower lobe may be present which is best appreciated on the frontal view. ? Trace atelectasis or pleural fluid at the right base. ?There is no vascular redistribution to suggest pulmonary edema. Cardiomediastinal silhouette: The cardiac, mediastinal and hilar shadows demonstrate enlarged cardiac silhouette Other: The bony structures are intact Component Latest Ref Rng AND Units 08/25/2013 03/27/2014 Protein, Total 6.0 - 8.4 g/dL 6.8 6.9 Albumin 3.5 - 5.0 g/dL 4.3 4.3 Calcium 8.5 - 10.5 mg/dL 9.2 9.1 Bilirubin, Total 0.0 - 1.5 mg/dL 0.2 <0.2 Alkaline Phosphatase 40 - 150 U/L 61 73 AST 7 - 40 U/L 20 22 Glucose 65 - 100 mg/dL 112 (H) 81 BUN 8 - 25 mg/dL 9 13 Creatinine 0.70 - 1.40 mg/dL 0.87 0.88 Sodium 132 - 148 mmol/L 142 142 Potassium 3.5 - 5.0 mmol/L 3.6 4.1 Chloride 98 - 110 mmol/L 105 106 CO2 23 - 32 mmol/L 23 27 Anion Gap 0 - 15 mmol/L 14 9 ALT 0 - 45 U/L 20 24 eGFR- >60 >60 eGFR-All Other Races . >60 >60 WBC 3.70 - 11.00 k/uL 7.73 RBC cardiology 3.90 - 5.20 m/uL 4.74 Hemoglobin 11.5 - 15.5 g/dL 13.9 Hematocrit 36.0 - 46.0 % 43.0 MCV 80.0 - 100.0 fL 90.7 MCH 26.0 - 34.0 pG 29.3 MCHC 30.5 - 36.0 g/dL 32.3 RDW-CV 11.5 - 15.0 % 12.9 Platelet Count 150 - 400 k/uL 191 MPV 9.0 - 12.7 fL 12.4 ASSESSMENT/PLAN: 1. Elevated blood pressure reading without diagnosis of hypertension - ICD9: 796.2, ICD10: R03.0 (primary diagnosis) High normal BP today. Perform fasting lab work. Monitor Bps and check daily. Bring in BP log to f/u appt. F/u with Henry Mitchell DNP.BALANCING MACHINE OPERATOR in 2-4 weeks. - ECG COMPLETE - COMP METABOLIC PANEL - CBC + DIFF - LIPID PANEL BASIC - CONSULT TO CARDIOLOGY 2. Tachycardia - ICD9: 785.0, ICD10: R00.0 Plan as in #2 and 3 - ECG COMPLETE - COMP METABOLIC PANEL - CBC + DIFF - LIPID PANEL BASIC - T3 BLD - TSH BLD - T4 FREE/FREE THYROX - CONSULT TO CARDIOLOGY 3. Abnormal EKG - ICD9: 794.31, ICD10: R94.31 12 Lead EKG completed and initial review below: - Sinus Tach at 102 beats per minute, LAD, normal intervals, no acute ST changes. Nonspecific T wave changes. Reviewed by Henry Mitchell DNP, BALANCING MACHINE OPERATOR - Consult to Cardiology to [facility]. MDM: No acute CP or SOB and is asymptomatic. No previous EKG to compare to. Has a strong family hx for Heart disease. Given her previous BP elevation and abnormal EKG I would have her see Cardiology to include (Echo and GXT) - ECG COMPLETE - COMP METABOLIC PANEL - CBC + DIFF - LIPID PANEL BASIC - T3 BLD - TSH BLD - T4 FREE/FREE THYROX - CONSULT TO CARDIOLOGY Patient will seek care in the emergency room for the following: Any concerns of chest pain pressure or palpitations; any chest pain that changes in severity, quality or location; chest pain that is associated with lightheadedness, dizziness, indigestion and/or shortness of breath, or that radiates to the jaw, neck, or back. The patient is instructed to call 911 for transport via EMS or head directly to the ER. The patient verbalizes understanding. 4. Bacterial pneumonia - ICD9: 482.9, ICD10: J15.9 Stable and continue Doxycycline Sinus rinse or Flonase for any nasal congestion. RTC if symptoms worsen or go to ER. Henry Mitchell DNP.HEATHER This note was completed with [employer] dictation software. Note was reviewed for accuracy. There may be minor misspellings or grammar miscues with [employer]ink Dictation. [place] [id number] Henry Mitchell DNP.HEATHER, XUAN 10/10/2019 11:27 AM Addendum Perform fasting lab work. No appointment is needed for lab work. Please fast 12 hours prior to blood work. You may have water, medications and black coffee during that fasting time. Lab hours are from 7:30 - 5:30 pm - and from 8:00 am -12:00pm Wednesday. Monitor Bps and check daily. Consult to Cardiology. F/u with Henry Mitchell DNP.CNP in 2-4 weeks. Patient will seek care in the emergency room for the following: Any concerns of chest pain pressure or palpitations; any chest pain that changes in severity, quality or location; chest pain that is associated with lightheadedness, dizziness, indigestion and/or shortness of breath, or that radiates to the jaw, neck, or back. The patient is instructed to call 911 for transport via EMS or head directly to the ER. The patient verbalizes understanding. Healthy Habits: Recommend regular physical activity, nutrition and healthy eating habits. Consume a variety of foods every day focusing on fruits, vegetables and lean meats). Eat foods low in fat, saturated fat and cholesterol. Eat a limited amount of salt and sodium. Drink adequate amounts of water and limit sugary drinks. Exercise portion control in meal selection. Establish a mindset of a wellness approach to health. Thank you for allowing me to provide your care today. I look forward to seeing you again and maintaining your health. Henry Mitchell DNP.HEATHER Referring Provider: LITA CUMMINS [[id number]] Allergies As of Date: 10/10/2019 Noted Allergy Reaction ERYTHROMYCIN 01/26/2011 8 - GI Upset Date Reviewed: 10/10/2019 Reviewed by: Henry (Juan Manuel.Heather) XUAN Mitchell - Fully Assessed Reason for Visit: Recheck [92] Primary Visit Diagnosis:Elevated blood pressure reading without diagnosis of hypertension [R03.0] Other Visit Diagnoses:Tachycardi a [R00.0] Abnormal EKG [R94.31] Bacterial pneumonia [J15.9] Order(s):ECG COMPLETE [ECG01] Order #: [id number] FUTURE COMP METABOLIC PANEL [SQCMP] Order #: [id number] FUTURE CBC + DIFF [SQCBCDIF] Order #: [id number] FUTURE LIPID PANEL BASIC [SQLIPB] Order #: [id number] FUTURE T3 BLD [SQT3] Order #: [id number] FUTURE TSH BLD [SQTSH] Order #: [id number] FUTURE T4 FREE/FREE THYROX [SQFT4] Order #: [id number] FUTURE CONSULT TO CARDIOLOGY [9004] Order #: [id number]: 1 FUTURE Prescriptions as of 10/10/2019 Sig: DOXYCYCLINE MONOHYDRATE 100 M* Take 1 capsule by mouth twice* ALBUTEROL SULFATE HFA 90 MCG/* Inhale 2 Puffs as instructed * NABUMETONE 750 MG TABLET Take 1 tablet by mouth once d* Problem List As Of Date 10/10/2019 Noted Resolved ACNE NEC [L70.8] IRRITABLE COLON [K58.9] VARICOSE VEINS NEC [456] CRAMP IN LIMB [R25.2] 03/25/2005 Hyperlipidemia [E78.5] 11/04/2011 Hand arthritis [M19.049] 12/08/2011 Allergic rhinitis [J30.9] 12/08/2011 Arthritis, 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 No appointment is needed for lab work. Please fast 12 hours prior to blood work. You may have water, medications and black coffee during that fasting time. Lab hours are from 7:30 - 5:30 pm M-F and from 8:00 am -12:00pm Wednesday. Monitor Bps and check daily. Consult to Cardiology. F/u with Henry Mitchell DNP.HEATHER in 2-4 weeks. Patient will seek care in the emergency room for the following: Any concerns of chest pain pressure or palpitations; any chest pain that changes in severity, quality or location; chest pain that is associated with lightheadedness, dizziness, indigestion and/or shortness of breath, or that radiates to the jaw, neck, or back. The patient is instructed to call 911 for transport via EMS or head directly to the ER. The patient verbalizes understanding. Healthy Habits: Recommend regular physical activity, nutrition and healthy eating habits. Consume a variety of foods every day focusing on fruits, vegetables and lean meats). Eat foods low in fat, saturated fat and cholesterol. Eat a limited amount of salt and sodium. Drink adequate amounts of water and limit sugary drinks. Exercise portion control in meal selection. Establish a mindset of a wellness approach to health. Thank you for allowing me to provide your care today. I look forward to seeing you again and maintaining your health. Henry Mitchell DNP.BALANCING MACHINE OPERATOR Disposition: Return in about 2 weeks (around 10/24/2019). Follow-up and Disposition History Recorded Encounter Status:Closed by HENRY MITCHELL DNP, CNP on 10/10/19 Normal [facility] ECG COMPLETEon 10-10-2019 ECG COMPLETE NAME : BRENDA CORREA PID : [id number] : 1960 Gender : Female Race : ORD : [id number] Procedure Date : Oct 10 2019 11:06:59 Edit Date : Oct 10 2019 15:57:44 Diagnosis:NORMAL SINUS RHYTHM POSSIBLE LEFT ATRIAL ENLARGEMENT LEFT ANTERIOR FASCICULAR BLOCK POOR R WAVE PROGRESSION ABNORMAL ECG Confirmed by GABY ZAIDI DO ([id number]) on 10/10/2019 3:57:41 PM Ventricular Rate : 100 BPM Atrial Rate : 100 BPM P-R Interval : 154 ms QRS Duration : 90 ms Q-T Interval : 380 ms QTC Calculation(Bazett) : [address] [place] : [address] [place] : -[address] [place] : 102 degrees Test Reason : Location : 185 : [facility] Overread By : GABY ZAIDI DO Edited By : GABY ZAIDI DO Referred By : HENRY MITCHELL Acquired by : Joel ARNDT [facility] PROGRESSon 10-10-2019 PROGRESS HNO ID: [id number] Author: Henry (Juan Manuel.Centerless Grinding Machine Adjuster) BUFFY Mitchell.HEATHER Service: ? Author Type: Nurse Practitioner Type: Progress Notes Filed: 10/10/2019 11:49 AM Note Text: Chief Complaint Patient presents with: Recheck HPI Brenda Correa is a 59 year old female who presents here today for f/u from related to blood pressure concerns. This is an established patient of Dr. James Lynne MD. This is a new patient to me. Denies any recent urgent care visits, ER visits or hospitalizations. States blood pressures have been elevated recently. Seen in urgent care clinic 2 days ago by Lita Cummins nurse practitioner for a pneumonia. Had chest x-ray completed. Was started on doxycycline. Instructed to follow-up with primary care she was noted to have an elevated blood pressure. Has not been seen within primary care for approximately 5 years. Her last primary care provider retired and then she just had not been sick or ill during that time. Denies any headache, chest pain or difficulty breathing. States she feels nasally congested some today. No fever or chills. States a family history of HTN and heart disease. She is unsure of the type of heart disease and heart issues that her family has had. Her brother is on the transplant list for a new heart. No previous diagnosis of hypertension. No previous consultations with cardiology. Past medical history, appointments, medications, allergies reviewed 10/10/2019 Previous Medical History PAST MEDICAL HISTORY Diagnosis Date - Irritable bowel syndrome - Other acne - Varicose veins of other sites Previous Surgical History PAST SURGICAL HISTORY Procedure Laterality Date - COLONOSCOP W/ OR W/O [facility] SPEC 07/07/1991 Colonoscopy - EGD W/O OR W/BRUSH/WASH 07/21/1991 EGD - LIGATE FALLOPIAN TUBE Bilateral 1988 Tubal ligation - PAST SURGICAL HISTORY OF N/A ingrown toe nails Family History FAMILY HISTORY Problem Relation Age of Onset - Heart Father - Hyperlipidemia Father - Cancer Mother Lung cancer - Hypertension Mother - Lipids Mother - Diabetes Maternal Grandmother - Heart Paternal Grandmother - Colon Cancer Paternal Grandfather - Heart Paternal Aunt - other (Other) Paternal Aunt glacoma - Heart disease Brother - No Known Problems Daughter - No Known Problems Daughter - No Known Problems Daughter Patient Allergies ALLERGIES Allergen Reactions - Erythromycin GI Upset Current Medications Current Outpatient Medications on File Prior to Visit Medication Sig - doxycycline monohydrate (MONODOX) 100 mg capsule Take 1 capsule by mouth twice daily for 10 days. - albuterol HFA (PROAIR HFA) 90 mcg/actuation inhaler Inhale 2 Puffs as instructed every 4 hours as needed. - nabumetone (RELAFEN) 750 mg tablet Take 1 tablet by mouth once daily. No current facility-administere d medications on file prior to visit. Social History Social History Tobacco Use - Smoking status: Former Smoker Packs/day: 2.00 Years: 15.00 Pack years: 30.00 Types: Cigarettes Last attempt to quit: 03/15/1997 Years since quittin.5 - Smokeless tobacco: Never Used Substance Use Topics - Alcohol use: No - Drug use: No Review of Symptoms GENERAL: No weight loss, malaise or fevers. No fatigue or night sweats. HEENT: Negative for frequent headaches NECK: Negative for lumps, pain, neck swelling, or swollen nodes RESPIRATORY: Negative for cough, wheezing, dyspnea or shortness of breath CARDIOVASCULAR: Negative for chest pain. Occ leg swelling GI: No nausea, vomiting, or diarrhea MUSCULOSKELETAL: Negative for generalized joint pain or muscle aches SKIN: Negative for lesions, rash, and itching Neuro: No lightheadedness or dizziness EXAM: BP 126/88 (BP Site: Right Arm, BP Position: Sitting, BP Cuff Size: Large Adult) Pulse 102 Temp 36.8 ?C (98.2 ?F) (Right Tympanic) Resp 16 Wt 81.2 kg (179 lb) LMP 04/21/2006 SpO2 99% BMI 30.73 kg/m? General Appearance: Well appearing, alert, in no acute distress, well-hydrated, well nourished.. Skin: Skin color, texture, turgor normal, no suspicious rashes or lesions. Head: Normocephalic, no masses, lesions, or abnormalities. Eyes: Anicteric sclera. Pupils are equally round and reactive to light. Ears: External ears normal, canals clear, TM's clear with adequate light reflex. Nose/Sinuses: Nares normal, septum midline, mucosa normal, no drainage or sinus tenderness. Oropharynx: Lips, mucosa, and tongue normal, teeth and gums normal, oropharynx nonreddened. Neck: Supple, no adenopathy; thyroid symmetric, normal size, no bruits. Lymph Nodes: No cervical lymphadenopathy, No supraclavicular lymphadenopathy Lungs: Lungs clear to auscultation. No wheezing, rhonchi, rales. Heart: RRR without murmur, gallop, or rubs. No ectopy. Normal S1 and S2. GI: Mild epigastric tenderness. No organomegaly. No rebound tenderness. Extremities: No deformities, edema, skin discoloration, clubbing or cyanosis. Good capillary refill. MSK: FROM of upper and lower extremities. No joint swelling or redness. Peripheral Pulses: Normal - radial and carotid 2+ Psych: Attitude: Cooperative, easily engaged in conversation Appearance: Normal, hygiene and grooming appropriate Affect: Euthymic (normal mood) Mental status: Alert, attentive. Speech is clear and fluent with good repetition, comprehension Gait/Stance: Posture is normal. Gait is steady with normal steps Health Maintenance List HEPATITIS C SCREENING due on 02/23/1978 HIV SCREENING due on 02/23/1978 SHINGRIX VACCINE(1 of 2) due on 02/23/2010 LIPID SCREEN due on 11/28/2014 MAMMOGRAM due on 03/27/2015 FECAL OCCULT BLOOD due on 03/27/2015 DTAP,TDAP,TD(2 - Td) due on 04/21/2016 DIABETES SCREEN due on 03/27/2017 PAP TESTING due on 10/06/2017 HPV TESTING due on 10/06/2017 INFLUENZA(1) due on 11/14/2019 Data reviewed Last 10 Encounter BP Readings: Date: BP: 10/10/2019 126/88 10/08/2019 122/96 03/27/2014 140/84 01/05/2013 104/76 11/03/2012 120/78 10/06/2012 110/74 06/05/2012 110/72 12/08/2011 120/78 11/04/2011 120/70 01/26/2011 140/80 BMI Readings from Last 10 Encounters: 10/10/19 : 30.73 kg/m? 10/08/19 : 32.61 kg/m? 03/27/14 : 32.10 kg/m? 01/05/13 : 30.73 kg/m? 11/03/12 : 30.73 kg/m? 10/06/12 : 30.38 kg/m? 06/05/12 : 31.76 kg/m? 12/08/11 : 32.44 kg/m? 11/04/11 : 31.93 kg/m? 01/26/11 : 31.07 kg/m? Last 10 Encounter Wt Readings: Date: Wt: 10/10/2019 81.2 kg (179 lb) 10/08/2019 86.2 kg (190 lb) 03/27/2014 84.8 kg (187 lb) 01/05/2013 81.2 kg (179 lb) 11/03/2012 81.2 kg (179 lb) 10/06/2012 80.3 kg (177 lb) 06/05/2012 83.9 kg (185 lb) 12/08/2011 85.7 kg (189 lb) 11/04/2011 84.4 kg (186 lb) 01/26/2011 82.1 kg (181 lb) Medication and allergy list reviewed, reconciled and updated 10/10/2019 At home blood pressure medication 10/08/2019 ?2:43 PM - Radiology, [place] Impression IMPRESSION: Bibasilar stranding may represent atelectasis or scar. ?Question subtle patchy infiltrate at the right lower lung with trace pleural fluid or atelectasis. ?No overt pulmonary edema. Improvement Advisor: PEPE ? Transcribe Date/Time: Oct 08 2019 ?2:39P Dictated by : MARGIE CASITLLO MD This examination was interpreted and the report reviewed and electronically signed by: MARGIE CASTILLO MD on Oct 08 2019 ?2:41PM ?EST Results-Findings * * *Final Report* * * DATE OF EXAM: Oct 08 2019 ?2:32PM ? WOX ? [id number] ?- ?XR CHEST 2V FRONTAL/LAT ?/ PROCEDURE REASON: Cough ?? ? * * * * Physician Interpretation * * * * ?EXAMINATION: ?CHEST RADIOGRAPH (2 VIEW FRONTAL AND LATERAL) CLINICAL HISTORY: Cough MQ: ?XC2_6 EXAM DATE/TIME: ?10/08/2019 2:32 PM COMPARISON: ?There are no prior chest radiographs for comparison. RESULT: Lines, tubes, and devices: None. Lungs and pleura: Mild prominent interstitial stranding at both lung bases may be acute or chronic. ?Patchy airspace infiltrate in the light lower lobe may be present which is best appreciated on the frontal view. ? Trace atelectasis or pleural fluid at the right base. ?There is no vascular redistribution to suggest pulmonary edema. Cardiomediastinal silhouette: The cardiac, mediastinal and hilar shadows demonstrate enlarged cardiac silhouette Other: The bony structures are intact Component Latest Ref Rng AND Units 08/25/2013 03/27/2014 Protein, Total 6.0 - 8.4 g/dL 6.8 6.9 Albumin 3.5 - 5.0 g/dL 4.3 4.3 Calcium 8.5 - 10.5 mg/dL 9.2 9.1 Bilirubin, Total 0.0 - 1.5 mg/dL 0.2 <0.2 Alkaline Phosphatase 40 - 150 U/L 61 73 AST 7 - 40 U/L 20 22 Glucose 65 - 100 mg/dL 112 (H) 81 BUN 8 - 25 mg/dL 9 13 Creatinine 0.70 - 1.40 mg/dL 0.87 0.88 Sodium 132 - 148 mmol/L 142 142 Potassium 3.5 - 5.0 mmol/L 3.6 4.1 Chloride 98 - 110 mmol/L 105 106 CO2 23 - 32 mmol/L 23 27 Anion Gap 0 - 15 mmol/L 14 9 ALT 0 - 45 U/L 20 24 eGFR- >60 >60 eGFR-All Other Races . >60 >60 WBC 3.70 - 11.00 k/uL 7.73 RBC cardiology 3.90 - 5.20 m/uL 4.74 Hemoglobin 11.5 - 15.5 g/dL 13.9 Hematocrit 36.0 - 46.0 % 43.0 MCV 80.0 - 100.0 fL 90.7 MCH 26.0 - 34.0 pG 29.3 MCHC 30.5 - 36.0 g/dL 32.3 RDW-CV 11.5 - 15.0 % 12.9 Platelet Count 150 - 400 k/uL 191 MPV 9.0 - 12.7 fL 12.4 ASSESSMENT/PLAN: 1. Elevated blood pressure reading without diagnosis of hypertension - ICD9: 796.2, ICD10: R03.0 (primary diagnosis) High normal BP today. Perform fasting lab work. Monitor Bps and check daily. Bring in BP log to f/u appt. F/u with Henry Mitchell DNP.HEATHER in 2-4 weeks. - ECG COMPLETE - COMP METABOLIC PANEL - CBC + DIFF - LIPID PANEL BASIC - CONSULT TO CARDIOLOGY 2. Tachycardia - ICD9: 785.0, ICD10: R00.0 Plan as in #2 and 3 - ECG COMPLETE - COMP METABOLIC PANEL - CBC + DIFF - LIPID PANEL BASIC - T3 BLD - TSH BLD - T4 FREE/FREE THYROX - CONSULT TO CARDIOLOGY 3. Abnormal EKG - ICD9: 794.31, ICD10: R94.31 12 Lead EKG completed and initial review below: - Sinus Tach at 102 beats per minute, LAD, normal intervals, no acute ST changes. Nonspecific T wave changes. Reviewed by Henry Mitchell DNP, BALANCING MACHINE OPERATOR - Consult to Cardiology to [facility]. MDM: No acute CP or SOB and is asymptomatic. No previous EKG to compare to. Has a strong family hx for Heart disease. Given her previous BP elevation and abnormal EKG I would have her see Cardiology to include (Echo and GXT) - ECG COMPLETE - COMP METABOLIC PANEL - CBC + DIFF - LIPID PANEL BASIC - T3 BLD - TSH BLD - T4 FREE/FREE THYROX - CONSULT TO CARDIOLOGY Patient will seek care in the emergency room for the following: Any concerns of chest pain pressure or palpitations; any chest pain that changes in severity, quality or location; chest pain that is associated with lightheadedness, dizziness, indigestion and/or shortness of breath, or that radiates to the jaw, neck, or back. The patient is instructed to call 911 for transport via EMS or head directly to the ER. The patient verbalizes understanding. 4. Bacterial pneumonia - ICD9: 482.9, ICD10: J15.9 Stable and continue Doxycycline Sinus rinse or Flonase for any nasal congestion. RTC if symptoms worsen or go to ER. Henry Mitchell DNP.BALANCING MACHINE OPERATOR This note was completed with Yoolink dictation software. Note was reviewed for accuracy. There may be minor misspellings or grammar miscues with Yoolink Dictation. [facility] [address], [place] [address] Normal [facility] CNOVon 10-08-2019 CNOV Office Visit (WSTR) BRENDA CORREA ([id number]) 1960 F Date Time Provider Department 10/08/19 2:00 PM LITA CUMMINSWSTR During your visit today, we recorded the following information about you: Temperature Pulse Blood pressure Weight 97.7 degrees 109/minute 122/96 86.2 kg Lita Cummins APRN.BALANCING MACHINE OPERATOR 10/08/2019 3:28 PM Signed Subjective HPI HPI Brenda Correa is a 59 year old female who presents today for CC of cough and chest congestion. States she also feels short of breath. She is also having swelling in lower extremities. She denies any chest pain. She was seen a month ago in urgent care in [place] for the same thing. She was given an inhaler, medrol dose pack and lasix. States that the swelling got better, but the other symptoms have remained. She is a former smoker. BP 122/96 (BP Site: Right Arm, BP Position: Sitting, BP Cuff Size: Regular Adult) Pulse 109 Temp 36.5 ?C (97.7 ?F) (Left Tympanic) Wt 86.2 kg (190 lb) LMP 04/21/2006 SpO2 100% BMI 32.61 kg/m? Social History Tobacco Use - Smoking status: Former Smoker Packs/day: 2.00 Years: 15.00 Pack years: 30.00 Types: Cigarettes Last attempt to quit: 03/15/1997 Years since quittin.5 - Smokeless tobacco: Never Used Substance Use Topics - Alcohol use: No - Drug use: No PAST MEDICAL HISTORY Diagnosis Date - Irritable bowel syndrome - Other acne - Varicose veins of other sites I have confirmed and edited as necessary, the [facility] Review of Systems Constitutional: Negative for chills and fever. HENT: Negative for congestion, ear pain, sinus pain and sore throat. Respiratory: Positive for cough and shortness of breath. Negative for sputum production and wheezing. Cardiovascular: Negative for chest pain. Musculoskeletal: Negative for myalgias. Neurological: Negative for headaches. Objective Physical Exam Constitutional: She is well-developed, well-nourished, and in no distress. HENT: Head: Normocephalic and atraumatic. Right Ear: Tympanic membrane, external ear and ear canal normal. Left Ear: Tympanic membrane and ear canal normal. Mouth/Throat: Uvula is midline, oropharynx is clear and moist and mucous membranes are normal. Cardiovascular: Normal rate, regular rhythm and normal heart sounds. Pulmonary/Chest: Effort normal. No respiratory distress. She has no wheezes. She has no rales. A dry cough was noted during this encounter. Talking in full sentences. Handling secretions without drooling. Lips and nailbeds are pink without cyanosis. Lymphadenopathy: Head (right side): No submental, no submandibular and no tonsillar adenopathy present. Head (left side): No submental, no submandibular and no tonsillar adenopathy present. She has no cervical adenopathy. Neurological: She is alert. Skin: Skin is warm and dry. Psychiatric: Affect normal. Nursing note and vitals reviewed. ASSESSMENT/PLAN: 1. Cough - ICD9: 786.2, ICD10: R05 (primary diagnosis) Continue ventolin inhaler as needed Cough drops Tylenol (generic acetaminophen) 500 mg-2 tabs every 8 hrs. as needed for fever and aches -Mucinex (generic is fine) Guaifenesin 1200 mg twice daily to help with cough and to thin out mucus - XR CHEST 2V FRONTAL/LAT RESULT: Lines, tubes, and devices: None. Lungs and pleura: Mild prominent interstitial stranding at both lung bases may be acute or chronic. Patchy airspace infiltrate in the light lower lobe may be present which is best appreciated on the frontal view. Trace atelectasis or pleural fluid at the right base. There is no vascular redistribution to suggest pulmonary edema. Cardiomediastinal silhouette: The cardiac, mediastinal and hilar shadows demonstrate enlarged cardiac silhouette Other: The bony structures are intact IMPRESSION: Bibasilar stranding may represent atelectasis or scar. Question subtle patchy infiltrate at the right lower lung with trace pleural fluid or atelectasis. No overt pulmonary edema. Interpreted by MARGIE CASTILLO MD 2. Lung infiltrate - ICD9: 793.19, ICD10: R91.8 Doxycycline 3. Elevated blood pressure reading without diagnosis of hypertension - ICD9: 796.2, ICD10: R03.0 Your blood pressure was elevated at today's visit. Before you leave today we will make an appointment for you to be seen - appointment Wednesday with Julian Mitchell CNP Diagnosis and treatment plan were discussed and questions were answered to the patient's satisfaction. Pt acknowledged understanding of concepts and follow up plan. Specific signs and symptoms that would indicate the need for higher level of care were discussed in detail warranting prompt ER evaluation. XUAN Warren APRN.CNP 10/08/2019 3:12 PM Addendum ASSESSMENT/PLAN: 1. Cough - ICD9: 786.2, ICD10: R05 (primary diagnosis) Continue ventolin inhaler as needed Cough drops Tylenol (generic acetaminophen) 500 mg-2 tabs every 8 hrs. as needed for fever and aches -Mucinex (generic is fine) Guaifenesin 1200 mg twice daily to help with cough and to thin out mucus - XR CHEST 2V FRONTAL/LAT 2. Lung infiltrate - ICD9: 793.19, ICD10: R91.8 Doxycycline 3. Elevated blood pressure reading without diagnosis of hypertension - ICD9: 796.2, ICD10: R03.0 Your blood pressure was elevated at today's visit. Before you leave today we will make an appointment for you to be seen * Seek medical care immediately, call 911, go to ER if you have chest pain, difficulty breathing, shortness of breath, inability to swallow. Referring Provider: SELF [[id number]] Allergies As of Date: 10/08/2019 Noted Allergy Reaction ERYTHROMYCIN 01/26/2011 8 - GI Upset Date Reviewed: 10/08/2019 Reviewed by: Lita Cummins - Fully Assessed Primary Visit Diagnosis:Cough [R05] Other Visit Diagnoses:Lung infiltrate [R91.8] Elevated blood pressure reading without diagnosis of hypertension [R03.0] Order(s):XR CHEST 2V FRONTAL/LAT [[id number]] Order #: [id number] FUTURE doxycycline monohydrate (MONODOX) 100 mg capsuleTake 1 capsule by mouth twice daily for 10 days.Disp: 20 capsuleRfl: 0 albuterol HFA (PROAIR HFA) 90 mcg/actuation inhalerInhale 2 Puffs as instructed every 4 hours as needed.Disp: 1 InhalerRfl: 0 Prescriptions as of 10/08/2019 Sig: DOXYCYCLINE MONOHYDRATE 100 M* Take 1 capsule by mouth twice* ALBUTEROL SULFATE HFA 90 MCG/* Inhale 2 Puffs as instructed * NABUMETONE 750 MG TABLET Take 1 tablet by mouth once d* Problem List As Of Date 10/08/2019 Noted Resolved ACNE NEC [L70.8] IRRITABLE COLON [K58.9] VARICOSE VEINS NEC [456] CRAMP IN LIMB [R25.2] 03/25/2005 Hyperlipidemia [E78.5] 11/04/2011 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 Cough - ICD9: 786.2, ICD10: R05 (primary diagnosis) Continue ventolin inhaler as needed Cough drops Tylenol (generic acetaminophen) 500 mg-2 tabs every 8 hrs. as needed for fever and aches -Mucinex (generic is fine) Guaifenesin 1200 mg twice daily to help with cough and to thin out mucus - XR CHEST 2V FRONTAL/LAT 2. Lung infiltrate - ICD9: 793.19, ICD10: R91.8 Doxycycline 3. Elevated blood pressure reading without diagnosis of hypertension - ICD9: 796.2, ICD10: R03.0 Your blood pressure was elevated at today's visit. Before you leave today we will make an appointment for you to be seen * Seek medical care immediately, call 911, go to ER if you have chest pain, difficulty breathing, shortness of breath, inability to swallow. Prescriptions ordered this encounter Disp Refills Start End DOXYCYCLINE MONOHYDRATE 100 MG CAPSU* 20 c* 0 10/08/2019 10/18/2019 Class: Print RX Route: ORAL Sig: Take 1 capsule by mouth twice daily for 10 days. ALBUTEROL SULFATE HFA 90 MCG/ACTUATI* 1 In* 0 10/08/2019 Class: Print RX Cmt: Generic or brand: dispense inhaler preferred by patient/insurance unless [place] flag is selected. Route: INHALATION Sig: Inhale 2 Puffs as instructed every 4 hours as needed. Medications Discontinued During This Encounter VENTOLIN HFA 90 mcg/actuation inhaler 09/21/2019 10/08/2019 Class: Historical Med Cmt: Generic or brand: dispense inhaler preferred by patient/insurance unless [place] flag is selected. Sig: INHALE 2 PUFFS BY MOUTH EVERY 4 HOURS Disc: Reason for discontinue is not on file. Encounter Status:Closed by LITA CUMMINS CNP on 10/08/19 Normal [facility] PROGRESSon 10-08-2019 PROGRESS HNO ID: [id number] Author: Judy Melchor (Rt) Mary Torres Service: ? Author Type: Verification Rep Type: Progress Notes Filed: 10/08/2019 2:32 PM Note Text: Radiology Service Progress Note PATIENT NAME: Brenda Correa DATE OF SERVICE: October 08, 2019 TIME: 2:24 PM PATIENT IDENTITY VERIFICATION COMPLETED USING TWO (2) IDENTIFIERS: Name and Date of confirmed by patient verbally. FALL SCREENING: Has the patient had 2 falls in the last year or 1 fall with injury or currently using an Ambulatory Assistive Device (Walker, Cane, Wheelchair, Crutches, etc.)? No PATIENT GENDER DATA: Female. status: : No status: NO. PATIENT RELEVANT IMPLANT DATA REVIEWED: Yes RADIOLOGY DEPARTMENT: General X-ray: Exam(s) Completed: Chest X-Ray PERIPHERAL IV DATA: Not applicable SIGNED BY: RT Jessica October 08, 2019 2:24 PM Normal [facility] PROGRESS HNO ID: [id number] Author: Lita Cummins Service: ? Author Type: Nurse Practitioner Type: Progress Notes Filed: 10/08/2019 3:28 PM Note Text: Subjective HPI HPI Brenda Correa is a 59 year old female who presents today for CC of cough and chest congestion. States she also feels short of breath. She is also having swelling in lower extremities. She denies any chest pain. She was seen a month ago in urgent care in [place] for the same thing. She was given an inhaler, medrol dose pack and lasix. States that the swelling got better, but the other symptoms have remained. She is a former smoker. BP 122/96 (BP Site: Right Arm, BP Position: Sitting, BP Cuff Size: Regular Adult) Pulse 109 Temp 36.5 ?C (97.7 ?F) (Left Tympanic) Wt 86.2 kg (190 lb) LMP 04/21/2006 SpO2 100% BMI 32.61 kg/m? Social History Tobacco Use - Smoking status: Former Smoker Packs/day: 2.00 Years: 15.00 Pack years: 30.00 Types: Cigarettes Last attempt to quit: 03/15/1997 Years since quittin.5 - Smokeless tobacco: Never Used Substance Use Topics - Alcohol use: No - Drug use: No PAST MEDICAL HISTORY Diagnosis Date - Irritable bowel syndrome - Other acne - Varicose veins of other sites I have confirmed and edited as necessary, the [facility] Review of Systems Constitutional: Negative for chills and fever. HENT: Negative for congestion, ear pain, sinus pain and sore throat. Respiratory: Positive for cough and shortness of breath. Negative for sputum production and wheezing. Cardiovascular: Negative for chest pain. Musculoskeletal: Negative for myalgias. Neurological: Negative for headaches. Objective Physical Exam Constitutional: She is well-developed, well-nourished, and in no distress. HENT: Head: Normocephalic and atraumatic. Right Ear: Tympanic membrane, external ear and ear canal normal. Left Ear: Tympanic membrane and ear canal normal. Mouth/Throat: Uvula is midline, oropharynx is clear and moist and mucous membranes are normal. Cardiovascular: Normal rate, regular rhythm and normal heart sounds. Pulmonary/Chest: Effort normal. No respiratory distress. She has no wheezes. She has no rales. A dry cough was noted during this encounter. Talking in full sentences. Handling secretions without drooling. Lips and nailbeds are pink without cyanosis. Lymphadenopathy: Head (right side): No submental, no submandibular and no tonsillar adenopathy present. Head (left side): No submental, no submandibular and no tonsillar adenopathy present. She has no cervical adenopathy. Neurological: She is alert. Skin: Skin is warm and dry. Psychiatric: Affect normal. Nursing note and vitals reviewed. ASSESSMENT/PLAN: 1. Cough - ICD9: 786.2, ICD10: R05 (primary diagnosis) Continue ventolin inhaler as needed Cough drops Tylenol (generic acetaminophen) 500 mg-2 tabs every 8 hrs. as needed for fever and aches -Mucinex (generic is fine) Guaifenesin 1200 mg twice daily to help with cough and to thin out mucus - XR CHEST 2V FRONTAL/LAT RESULT: Lines, tubes, and devices: None. Lungs and pleura: Mild prominent interstitial stranding at both lung bases may be acute or chronic. Patchy airspace infiltrate in the light lower lobe may be present which is best appreciated on the frontal view. Trace atelectasis or pleural fluid at the right base. There is no vascular redistribution to suggest pulmonary edema. Cardiomediastinal silhouette: The cardiac, mediastinal and hilar shadows demonstrate enlarged cardiac silhouette Other: The bony structures are intact IMPRESSION: Bibasilar stranding may represent atelectasis or scar. Question subtle patchy infiltrate at the right lower lung with trace pleural fluid or atelectasis. No overt pulmonary edema. Interpreted by MARGIE CASTILLO MD 2. Lung infiltrate - ICD9: 793.19, ICD10: R91.8 Doxycycline 3. Elevated blood pressure reading without diagnosis of hypertension - ICD9: 796.2, ICD10: R03.0 Your blood pressure was elevated at today's visit. Before you leave today we will make an appointment for you to be seen - appointment Wednesday with Julian Mitchell CNP Diagnosis and treatment plan were discussed and questions were answered to the patient's satisfaction. Pt acknowledged understanding of concepts and follow up plan. Specific signs and symptoms that would indicate the need for higher level of care were discussed in detail warranting prompt ER evaluation. Lita Cummins APRN.BALANCING MACHINE OPERATOR [facility] XR CHEST 2V FRONTAL/LATon XR CHEST 2V FRONTAL/LAT * * *Final Repor t* * * DATE OF EXAM: Oct 08 2019 2:32PM WOX [id number] - XR CHEST 2V FRONTAL/LAT / PROCEDURE REASON: Cough * * * * Physician Interpretation * * * * EXAMINATION: CHEST RADIOGRAPH (2 VIEW FRONTAL and LATERAL) CLINICAL HISTORY: Cough MQ: XC2_6 EXAM DATE/TIME: 10/08/2019 2:32 PM COMPARISON: There are no prior chest radiographs for comparison. RESULT: Lines, tubes, and devices: None. Lungs and pleura: Mild prominent interstitial stranding at both lung bases may be acute or chronic. Patchy airspace infiltrate in the light lower lobe may be present which is best appreciated on the frontal view. Trace atelectasis or pleural fluid at the right base. There is no vascular redistribution to suggest pulmonary edema. Cardiomediastinal silhouette: The cardiac, mediastinal and hilar shadows demonstrate enlarged cardiac silhouette Other: The bony structures are intact IMPRESSION: Bibasilar stranding may represent atelectasis or scar. Question subtle patchy infiltrate at the right lower lung with trace pleural fluid or atelectasis. No overt pulmonary edema. Improvement Advisor: PSCB Transcribe Date/Time: Oct 08 2019 2:39P Dictated by : MARGIE CASTILLO MD This examination was interpreted and the report reviewed and electronically signed by: MARGIE CASTILLO MD on Oct 08 2019 2:41PM EST [id number] Normal [facility] Provider Note - ED v2on Provider Note - ED v2 Provider Note - ED v2: Chart Review: HISTORY OF PRESENTING ILLNESS BRENDA is a 59 year old Female and was seen by me at 21-Sep-2019 10:42. Triage Information: Most recent Vital Sign Value Date PAST MEDICAL HISTORY ATTESTATION: I have reviewed and confirmed nurse's/medic's notes for patient's medications, allergies, medical history, and surgical history ALLERGIES/INTOLERANC ES: No Known Allergies HEALTH HISTORY: No documented data. OUTPATIENT MEDICATIONS: Home Medications Review Status for Reconciliation: Complete Med Status: Patient Currently Takes Medications Drug Name: Claritin 5 mg oral tablet, chewable Instructions: 1 tab(s) orally once a day Drug Name: furosemide 40 mg oral tablet Instructions: 1 tab(s) orally once a day Drug Name: Ventolin HFA 90 mcg/inh inhalation aerosol Instructions: 2 puff(s) inhaled every 4 hours Drug Name: Medrol Dosepak 4 mg oral tablet Instructions: take as directed on package labeling SIGNIFICANT EVENTS: No documented data. TILT WALL SUPERVISOR: Is : no Is : no RESULTS/VITAL SIGNS VITAL SIGNS: T PRBP SpO2O2(LPM) %FiO2 Method 21-Sep-2019 10:42:[id number] MEDICAL DECISION MAKING/ED COURSE MDM/ED COURSE: This note was generated with voice recognition software and may contain errors including spelling, grammar, syntax, and misrecognization of what was dictated Chief Complaint Wheezing History of Present Illness Patient presents no apparent distress with a two-week history of wheezing and shortness of breath. Patient states her shortness of breath is worse while mowing the yard or with activity. Patient states she frequently hears audible wheezes at night while attempting to sleep and she has a nonproductive cough while supine. Patient states she takes Claritin without relief of her symptoms. Patient denies any chest pain but does complain of some swelling to her feet bilaterally. Patient states she has attempted to elevate her extremities without relief of her swelling. Review of Systems 10 systems reviewed negative with exception of history of present illness listed above Physical Examination General: Alert and oriented, No acute distress. Eye: Pupils are equal, round and reactive. HENT: Normocephalic Neck: Supple, Non-tender, No lymphadenopathy. Respiratory: Respirations are non-labored, Symmetrical chest wall expansion, Lungs are clear to auscultation, Breath sounds are equal Cardiovascular: Normal rate, Regular rhythm. Musculoskeletal: Normal range of motion, normal strength, no tenderness, pitting edema to her bilateral lower extremities Integumentary: [place], warm, dry, and Intact. Neurologic: Alert, Oriented, Normal sensory, Normal motor function. Cognition and Speech: Oriented, Speech clear and coherent. Psychiatric: Cooperative, Appropriate mood & affect. Impression and Plan Course: Unchanged Plan: Patient will be discharged home with Lasix for 3 days, an inhaler, and a tapered Medrol Dosepak. In the presence of wheezing and shortness of breath that is worse while mowing her yard and with a dry nonproductive cough and feel she may be experiencing environmentally induced asthma. Patient was instructed to seek emergent evaluation for the development of any chest pain and to establish primary care for management of any persisting symptoms. Patient agrees a plan of care, questions were encouraged and answered. 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 Davina Meredith MD Work Phone: [facility] 12-26-2024 11:10-0400 Body weight 75.[address] Davina Meredith MD Work Phone: [facility] 12-26-2024 11:10-0400 Diastolic blood pressure 61 mm[Hg] Dr. Davina Meredith MD Work Phone: [facility] 12-26-2024 11:10-0400 Heart rate 61 /min Dr. Davina Meredith MD Work Phone: [phone] [place] [address] 12-26-2024 11:10-0400 Systolic blood pressure 105 mm[Hg] Dr. Davnia Meredith MD Work Phone: [phone])[phone] [place] [address] 06-22-2023 11:13-0400 Body height 162.[address] Davina Meredith Work Phone: [facility] 06-22-2023 11:13-0400 Body mass index (BMI) [Ratio] 26.6 kg/m2 Dr. Davina Meredith Work Phone: [facility] 06-22-2023 11:13-0400 Body weight 70.[address] Davina Meredith Work Phone: [facility] 06-22-2023 11:13-0400 Diastolic blood pressure 60 mm[Hg] Dr. Davina Meredith Work Phone: [facility] 06-22-2023 11:13-0400 Heart rate 64 /min Dr. Davina Meredith Work Phone: [facility] 06-22-2023 11:13-0400 Respiratory rate 14 /min Dr. Davina Meredith Work Phone: [facility] 06-22-2023 11:13-0400 Systolic blood pressure 88 mm[Hg] Dr. Davina Meredith Work Phone: [facility] 11-13-2022 11:25-0400 Body height 162.[address] Davina Meredith Work Phone: [facility] 11-13-2022 11:25-0400 Body mass index (BMI) [Ratio] 25.7 kg/m2 Dr. Davina Meredith Work Phone: [facility] 11-13-2022 11:25-0400 Body weight 68.[address] Davina Meredith Work Phone: [facility] 11-13-2022 11:25-0400 Diastolic blood pressure 64 mm[Hg] Dr. Davina Meredith Work Phone: [phone])[phone] [place] [address] 11-13-2022 11:25-0400 Heart rate 64 /min Dr. Davina Meredith Work Phone: [phone] [place] [address] 11-13-2022 11:25-0400 Respiratory rate 18 /min Dr. Davina Meredith Work Phone: [phone] [place] [address] 11-13-2022 11:25-0400 SaO2% (BldA) [Mass fraction] 96 % Dr. Davina Meredith Work Phone: [facility] 11-13-2022 11:25-0400 Systolic blood pressure 109 mm[Hg] Dr. Davina Meredith Work Phone: [facility] 04-14-2022 15:32-0500 Body height 162.[address] Davina Meredith Work Phone: [facility] 04-14-2022 15:32-0500 Body mass index (BMI) [Ratio] 25.5 kg/m2 Dr. Davina Meredith Work Phone: [facility] 04-14-2022 15:32-0500 Body weight 67.[address] Davina Meredith Work Phone: [facility] 04-14-2022 15:32-0500 Diastolic blood pressure 69 mm[Hg] Dr. Davina Meredith Work Phone: [facility] 04-14-2022 15:32-0500 Heart rate 73 /min Dr. Davina Meredith Work Phone: [facility] 04-14-2022 15:32-0500 Respiratory rate 16 /min Dr. Davina Meredith Work Phone: [facility] 04-14-2022 15:32-0500 Systolic blood pressure 109 mm[Hg] Dr. Davina Meredith Work Phone: [facility] Encounters Encounter Date Encounter Type Care Provider Facility Start: 12-26-2024 End: 12-26-2024 Patient encounter procedure Joseph Mccracken FLEET SERVICE MANAGER-C -Laboratory [facility] Start: 12-26-2024 End: 12-26-2024 Patient encounter procedure Joseph Mccracken FLEET SERVICE MANAGER-C -[facility] Work Phone: Start: 12-26-2024 End: 12-26-2024 ambulatory Joseph Bojorquez Facility:[facility] Start: 12-26-2024 End: 12-26-2024 ambulatory Joseph Tanya Bojorquez Facility:[facility] Start: 01-18-2024 ambulatory [facility] Facility:[facility] Start: 01-18-2024 End: 01-18-2024 ambulatory [facility] Facility:[facility] Start: 06-24-2023 End: 06-24-[address] Davina Meredith Work Phone: [facility] Work Phone: Start: 06-24-2023 End: 06-24-[address] [facility]eredith [facility] Start: 06-22-2023 End: 06-22-[address] Davina Meredith Work Phone: [facility] Work Phone: Start: 03-10-2023 End: 03-10-[address] Davina Meredith Work Phone: [facility] Work Phone: Start: 03-10-2023 End: 03-10-[address] Davina Meredith Work Phone: [facility] Work Phone: Start: 02-18-2023 Non-patient / Non-visit Dr. Nate Meredith Work Phone: [facility] Work Phone: Start: 02-17-2023 Non-patient / Non-visit Dr. Nate Meredith Work Phone: [facility] Start: 02-17-2023 End: 02-17-[address] Davina Meredith Work Phone: [facility] Work Phone: Start: 02-17-2023 End: 02-17-[address] Davina Meredith Work Phone: [facility] Work Phone: Start: 11-13-2022 End: 11-13-[address] Davina Meredith Work Phone: [facility] Work Phone: Start: 08-24-2022 Non-patient / Non-visit Dr. Nate Meredith Work Phone: [facility] Start: 08-24-2022 Non-patient / Non-visit Dr. Nate Meredith Work Phone: [facility] Start: 08-24-2022 End: 08-24-[address] Davina Meredith Work Phone: [facility] Work Phone: Start: 08-24-2022 End: 08-24-[address] [facility] Start: 08-17-2022 End: 08-17-[address] Davina Meredith Work Phone: [facility] Work Phone: Start: 08-17-2022 End: 08-17-[address] Davina Meredith Work Phone: [facility] Start: 05-25-2022 End: 05-25-[address] Davina Meredith Work Phone: [facility] Work Phone: Start: 05-25-2022 End: 05-25-[address] Davina Meredith Work Phone: [facility] Start: 05-08-2022 Non-patient / Non-visit Dr. Nate Meredith Work Phone: [facility] Start: 05-08-2022 Non-patient / Non-visit Dr. Nate Meredith Work Phone: [facility] Start: 05-08-2022 End: 05-08-[address] Davina Meredith Work Phone: [facility] Work Phone: Start: 05-08-2022 End: 05-08-[address] Davina Meredith Work Phone: [facility] Start: 04-14-2022 End: 04-14-[address] Davina Meredith Work Phone: [facility] Start: 02-16-2022 End: 02-16-2022 ambulatory [facility] Work Phone: Start: 02-16-2022 End: 02-16-2022 Patient encounter procedure [facility] Plan of Treatment Date Care Activity Detail Author Blood chemistry [facility] Payers Date Payer Category Payer Unknown [id number] 2024 Self-pay [id number] 2024 Unknown [id number] 2024 Unknown [id number] Private Health Insurance AETNA [id number] Unknown ANTHEM [id number] Unknown [id number] Unknown [id number] Unknown [id number] Unknown [id number] Social History Date Type Detail Facility Start: 04-08-2021 End: 06-22-2023 Tobacco smoking status WIIS Unknown if ever smoked [facility] Start: 10-19-2019 Spouse/ Signif icant Other [facility] Start: 1960 Sex Assigned At Female [facility] Start: 06-22-2023 Tobacco smoking status NHIS Ex-smoker (finding) [facility] Sex Female [facility] Progress note 12-26-2024 Note Date & Type Note Facility 12-26-2024 Progress note [facility] Progress note 12-26-2024 Note Date & Type Note Facility 12-26-2024 Progress note Note Date/Time December 26, 2024 2:25pm [facility] [address] [place], [place] [address]all tanya. [address] [place], [place] [address] OFFICE VISIT Date of Service: 12/26/24 MR#: [id number] Acct: [id number] Name: BRENDA CORREA Rep #: [id number] : 1960 Provider: JESUS MANUEL Mccracken Age/Sex: 64/F Location: [facility] [place] [facility] Status: Signed HPI HPI History of Present Illness Details: Pleasant 64-year-old lady who presented to the emergency room in September of 2019 with a right lower extremity DVT as well as a right-sided pulmonary embolism. She was diagnosed as having a cardiomyopathy as well and after an echocardiogramwas performed which demonstrated an ejection fraction of 10% she was sent to [facility] where she underwent cardiac catheterization with demonstrated no obstructive coronary disease, a cardiac MRI was performed which demonstrated a slowly enlarged left ventricle with an estimated ejection fraction of 14. Natruretic peptide was also elevated she was treated with intravenous Lasix, p.o. Lasix and subsequently losartan and beta-dao. She was subsequently transitioned onto an ARNI which she has tolerated. She is alsobeen on an SGLT2 inhibitor which she has tolerated her ejection fraction on lastevaluation was noted to be approximately 40%. She denies chest, arm, jaw, or neck discomfort. She denies palpitations. She denies bilateral lower extremity edema. She denies claudication. She states shortness of breath with activity. She noted this walking uphill. She denies shortness of breath at rest, orthopnea, or PND. She denies chronic cough. She denies significant, sudden weight gain. She denies lightheadedness, dizziness, near-syncope, or syncope. She denies blood in urine, blood in stool, or epistaxis. He denies fever with chills. She denies myalgia. She denies fatigue. Her exercise level has remained stable. Intake Vital Signs 01/04/24 09:59 12/26/24 11:10 Height 5 ft 4 in 5 ft 4 in Weight: 155 lb 167 lb BMI 26.6 28.6 BP 108/66 105/61 Blood Pressure Location Lt brachial Position Sitting Respiration 16 Pulse 53 L 61 Pulse Source Monitor Intake Visit Reasons: 1 Y FU Allergies No Known Allergies Allergy (Verified 01/04/24 10:00) Ejection fraction %: 45 PFSH Medical History COVID-19 (02/16/21) Dyspnea on exertion Right ventricular systolic dysfunction Right ventricular dilation IBS (irritable bowel syndrome) Obesity Chronic systolic (congestive) heart failure Non-ischemic cardiomyopathy Deep vein thrombosis of right lower limb (10/12/19) Pulmonary embolism (10/12/19) Surgical History History of left heart catheterization (10/20/19) Family History Grandmother Heart disease NICM Brother Heart disease NICM Father Heart disease [place]/Heart Failure Social History Smoking Status: Former smoker how long ago did patient quit smokin years ago alcohol intake: never substance use type: does not use caffeine: Yes Type: coffee Number of servings: 1 ROS Const Const: Negative for fatigue, weakness, headache(s) or frequent falls Eyes Eyes: Negative for blurry vision ENT ENT: Negative for headache(s), dizziness or Nosebleed/epistaxis Cardio Chest Pain: No Palpitations: No Edema: None Muscle aches with walking: None Resp Respiratory: Positive for SOB with activity; Negative for SOB at rest or SOB orthopnea\SOB lying down GI GI: Negative nausea, vomiting, heartburn, bright, red blood in stools or black,tarry stools : Negative for hematuria Musc Musc: Negative for muscle aches/ myalgia Skin Skin: Negative non-healing lesions or rash Neuro Neuro: Negative for dizziness, lightheadedness, near syncope, syncope, frequent falls, headache(s), weakness or blurry vision Endo Endo: Negative for fatigue Allergy Allergy/Immunology: Negative for rash Cardiology Exam Const Appearance: cooperative, healthy appearing, comfortable and no acute distress Nutritional Appearance: well nourished and overweight Orientation: alert, awake and oriented x3 Head Head: normal to inspection Ears: hearing grossly normal bilaterally Nose: external nose normal Face and Sinus: face symmetric Mouth: moist mucous membranes Eyes General: appearance normal, both eyes and all related structures Eyelids: eyelids normal EOM: EOM intact bilaterally Neck Neck: normal visual inspection and no JVD Carotids: normal carotid upstroke Chest Chest inspection: normal inspection of the chest, symmetric chest movement and normal respiratory effort; Negative cough Auscultation: Bilateral: Clear to Auscultation Cardio Rate: regular rate Rhythm: regular rhythm Heart sounds: S1 normal and S2 normal; Negative rub, gallop or murmur GI GI: normal to inspection Neuro General: patient alert, patient awake, patient oriented x3 and CN's II-XI intactbilaterally Skin Skin: no rashes or lesions noted Extremities Pulses: Normal: Right Posterior Tibial Pulse, Left Posterior Tibial Pulse, RightRadial Pulse and Left Radial Pulse Lower Extremity Edema: None: Bilateral Psych Psychological: normal affect Supplemental Info Supplemental Information Echocardiogram from 01/18/2024: Interpretation Summary The left ventricular ejection fraction is 45 %. Normal LV size. Stage 1 diastolic dysfunction. Pulmonary artery systolic pressure is 34 mmHg. The global longitudinal strain is moderately abnormal. Echocardiogram from 02/17/2023: Interpretation Summary Normal LV size. The estimated ejection fraction is 40 %. There is mild to moderate global hypokinesis of the left ventricle. Pulmonary artery systolic pressure is 30 mmHg. Contrast injection was performed. Heart catheterization from 10/20/2019: Coronary angiography ?RCA: Dominant, angiographically normal ?LM: Angiographically normal ?LCx: Nondominant, angiographically normal ?LAD: Angiographically normal Conclusions ?Minimal plaque without evidence of CAD Cardiac MRI from 10/23/2019: Final impressions: Severely enlarged left ventricle with severe systolic function (LVEF 14%). Mildly elevated T2 (up to 58 msec) in the septum suggestive of edema/inflammation. T2 could be elevated due to decompensated heart failure. Linear myocardial fibrosis in the septum typically for dilated cardiomyopathy. Overall, the findings are more likely to represent dilated cardiomyopathy and myocarditis. Mild to moderate tricuspid regurgitation. Diagnostics: Electrocardiogram Echocardiogram Chest X-Ray Chest CTA Venous Doppler Study Past Visits: Cardiology Visit Today Assessment and Plan Assessment and Plan (1) Non-ischemic cardiomyopathy: Status: Chronic Plan: Nonischemic cardiomyopathy: Echocardiogram 01/18/2024-45%, 02/17/2023?EF: 40%, 08/24/2022-EF: 35%, 10/19/2019-EF: 10% Twelve-lead EC10/19/2019-normal sinus rhythm with QRS 96 [place] Heart Association Functional Class: I ACC/AHA stage: C Guideline Directed Medical Therapy: Carvedilol 25 mg p.o. twice daily Farxiga 10 mg p.o. daily Lasix 20 mg p.o. PRN Entresto 97-103 mg p.o. twice daily She states her father and brother both have nonischemic cardiomyopathy. We discussed repeat echocardiogram to evaluate EF post medication changes. She will proceed with laboratory testing to ensure that her chemistry profile is stable. If stable, we will consider low-dose spironolactone. Previously with spironolactone 25 mg p.o. daily she had lower blood pressure and lightheadednessand thus it was discontinued. She will also proceed with proBNP evaluation today to assess fluid volume overload with respect to her shortness of breath. Symptoms of fluid volume overload reviewed with her with respect to taking as needed Lasix. (2) Dyspnea on exertion: Status: Acute Plan: She will proceed with laboratory testing to guide further. Depending on results,further recommendation will be made. Orders: Orders Basic Metabolic Profile (BMP) Today I42.8 - Other cardiomyopathies, R06.00 - Dyspnea, unspecified Pro- Brain NATRIURETIC PEPTIDE Today I42.8 - Other cardiomyopathies, R06.00 - Dyspnea, unspecified CBC W/Diff, Automated Today I42.8 - Other cardiomyopathies, R06.00 - Dyspnea, unspecified Plan Details Additional Comments: Thank you for allowing us to participate in the patients plan of care, if you have any questions please do not hesitate to call. Plan was reviewed with patient/family member along with red flag symptoms. Understanding was acknowledged. Questions were answered to apparent satisfaction. This note was generated using a voice recognition system and there may be incorrect words, spelling or punctuation that were not noted when reviewing the office note prior to saving. Portions of this documentation were copied and pasted from previous office visitnotes to provide a cohesive continuity of the history. The note has been reviewed, edited, and updated, as necessary. 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) Coding Level of Care Code Off vis,est,level 3 Diagnoses Non-ischemic cardiomyopathy I42.8 Dyspnea on exertion R06.00 Coding Level of Care Code Off vis,est,level 3 Diagnoses Non-ischemic cardiomyopathy I42.8 Dyspnea on exertion R06.00 Clinical Quality Measures Cardiac Ejection fraction %: 45 12/26/24 1536 <Electronically signed by Joseph KEN> Date _ [facility] FLEET SERVICE MANAGER FLEET SERVICE MANAGER-C Angeliigner Signature: Date (if applicable) CC: ~ [employer] Work Phone: Evaluation note Note Date & Type Note Facility Evaluation note No assessment information availa ble [facility] Work Phone: Evaluation note Note Date & Type Note Facility Evaluation note Diagnosis Onset Date Non-ischemic cardiomyopathy chronic [facility] Work Phone: Evaluation note Note Date & Type Note Facility Evaluation note Diagnosis Onset Date Resolution Dyspnea on exertion acute Oct er 2024 1:40pm Non-ischemic cardiomyopathy chronic December 26 1:40pm [place] [employer] Work Phone: Reason for referral (narrative) Note Date & Type Note Facility Reason for referral (narrative) No reason for referral information available [place] [employer] [facility] Work Phone: Summary Purpose Family History Relationship Condition Age at Onset Recorded Date/T paula grandmother Cardiac disease Unknown brother Cardiac disease Unknown father Cardiac disease Unknown Advance Directives Advance Directive Response Recorded Date/ Time Living Will Yes February 16 2:00pm Power of Belt Cutter Yes February 16, 2021 2:00pm Advance Directive Response Recorded Date/ Time Living Will Yes February 16 3:00pm Power of Belt Cutter Yes February 16, 2021 3:00pm Advance Directive Response Recorded Date/ Time Living Will Yes February 16 3:00pm Do you have a Healthcare Power of Belt Cutter? Yes February 16, 2021 3:00pm Chief Complaint and Reason for Visit Chief Complaint 6 M FU DYSPENA Amb Documentation Reason for Visit Non-ischemic cardiom yopathy Chief Complaint DYSPENA Amb Documentation Chief Complaint DYSPENA Amb Documentation CHF Amb Documentation Chief Complaint 6 M FU Other cardiomyopathies Amb Documentation Reason for Visit Non-ischemic cardiom yopathy Chief Complaint Other cardiomyopathi es Amb Documentation Chief Complaint 7 M FU Reason for Visit Non-ischemic cardiom yopathy Chief Complaint Admit Date 1 Y FU December 26, 2024 1 :40pm Reason for Visit Admit Date Dyspnea on exertion December 26, 2024 1 :40pm Non-ischemic cardiomyopathy December 1:40pm Additional Source Comments INFORMATION SOURCE (unrecogn ized section and content) DATE CREATED AUTHOR 10/06/2019 [facility] DATE CREATED AUTHOR AUTHOR'S ORGANIZ ATION 10/10/2019 [facility] DATE CREATED AUTHOR AUTHOR'S ORGANIZ ATION 01/09/2025 [facility] Goals (unrecognized section and content) Goals may be documented in a n alternate sectionGoals may be documented in an alternate sectionGoals may be documented in an alternate sectionGoals may be documented in an alternate sectionGoals may be documented in an alternate sectionGoals may be documented in an alternate sectionGoals may be documented in an alternate sectionGoals may be documented in an alternate sectionGoals may be documented in an alternate section Care Teams (unrecognized sec tion and content) Team Status: Active Member Role Status Dates Dr. James Lynne MD Family Provider Active Dr. Davina Meredith MD Primary Care Provider Active Team Status: Inactive Member Role Status Dates Dr. Davina Meredith MD Primary Care Provider, Referrin g Provider Active Dr. Esteban Salgado MD Attending Provider Active Team Status: Active Member Role Status Dates Dr. Davina Meredith MD Primary Care Provider Active Dr. Esteban Salgado MD Attending Provider Active Team Status: Active Member Role Status Dates Dr. Davina Meredith MD Primary Care Provider Active Joseph Mccracken FLEET SERVICE MANAGER, FLEET SERVICE MANAGER-C Attending Provider Active Team Status: Inactive Member Role Status Dates Dr. Davina Meredith MD Primary Care Provider, Attendin g Provider Active Team Status: Inactive Member Role Status Dates Dr. Davina Meredith MD Primary Care Provider Active Dr. Esteban Salgado MD Attending Provider, Referring Pro vider Active Team Status: Inactive Member Role Status Dates Dr. Davina Meredith MD Primary Care Provider Active Dr. Esteban Salgado MD Attending Provider Active Team Status: Inactive Member Role Status Dates Dr. Davina Meredith MD Primary Care Provider Active Joseph Mccracken NP, FLEET SERVICE MANAGER-C Attending Provider, Referring Pro vider Active Team Status: Inactive Member Role Status Dates Dr. Davina Meredith MD Primary Care Provider, Referrin g Provider Active Joseph Mccracken FLEET SERVICE MANAGER, FLEET SERVICE MANAGER-C Attending Provider Active Team Status: Active Member Role Status Dates Dr. Davina Meredith MD Primary Care Provider Active Dr. Esteban Salgado MD Attending Provider, Referring Pro vider Active Team Status: Inactive Member Role Status Dates Dr. Davina Meredith MD Primary Care Provider Active Joseph Mccracken FLEET SERVICE MANAGER, FLEET SERVICE MANAGER-C Attending Provider Active Team Status: Active Member Role/Relationship Status Dates Dr. Joseph Bojorquez MD Primary care physician Active Team Status: Inactive Member Role/Relationship Status Dates Dr. Davina Meredith MD Referring Provider Active Start: December 26, 2024 End: December 26, 2024 Joseph Mccracken NP, FLEET SERVICE MANAGER-C Attending physician Active Start: December 26, 2024 End: December 26, 2024 Dr. Joseph Bojorquez MD Primary care physician Active Start: December 26, 2024 End: December 26, 2024 Team Status: Inactive Member Role/Relationship Status Dates Dr. Joseph Bojorquez MD Primary care physician Active Start: December 26, 2024 End: December 26, 2024 Joseph Mccracken NP, FLEET SERVICE MANAGER-C Attending physician Active Start: December 26, 2024 End: December 26, 2024 FOR RECORDS PERTAINING TO PATIENTS WHO ARE OR HAVE BEEN ENROLLED IN A CHEMICAL DEPENDENCY/SUBSTANCEABUSE PROGRAM, SOME INFORMATION MAY BE OMITTED. This clinical summary was aggregated from multiple sources. Caution should be exercised in using it in the provision of clinical care. This summary normalizes information from multiple sources, and as a consequence, information in this document may materially change the coding, format and clinical context of patient data. In addition, data may be omitted in some cases. CLINICAL DECISIONS SHOULD BE BASED ON THE PRIMARY CLINICAL RECORDS. [employer] provides no warranty or guarantee of the accuracy or completeness of information in this document.
== END | disposition home or self-care (01) ==
LOC: LAB 13:48
PROVIDERS: PCP Family Medicine; Referring Provider Nurse Practitioner Family; Visit Provider Nurse Practitioner Family
DX: I42.8 Other cardiomyopathies (principal); I50.22 Chronic systolic (congestive) heart failure; R06.00 Dyspnea, unspecified
CPT/HCPCS: 36415; 80048